=== PATIENT | male | born 1975 | race African-American/Black ===

== ENCOUNTER 2017-05-04 10:48 | Inpatient (IN) | payer OTHER ==
[2017-05-04 11:09] VITALS: BMI 34.9
--- NOTE | 2017-05-04 14:27 | HP ---
CIWA Score - CIWA Score Nausea/Vomitin Muscle Tremors: 4-Moderate,w/Arms Extend Anxiety: 4-Mod. Anxious/Guarded Agitation: 4-Moderately Restless Paroxysmal Sweats: 3 Orientation: 0-Oriented Tacttile Disturbances: 0-None Auditory Disturbances: 0-None Visual Disturbances: 0-None Headache: 0-None Present CIWA-Ar Total Score: 18 Admission ROS BHS - HPI Chief Complaint: Withdrawal sx. Allergies/Adverse Reactions: Allergies Allergy/AdvReac Type Severity Reaction Status Date / Time No Known Allergies Allergy Verified 05/04/17 11:41 History of Present Illness: 42 y/o man with a long hx. of alcoholism is admitted for detox. Pt. has been in previous detox, reports sobriety during incarceration only. Exam Limitations: No Limitations - Ebola screening Have you traveled outside of the country in the last 21 days: No (N) Have you had contact with anyone from an Ebola affected area: No Have you been sick,other than usual withdrawal symptoms: No Do you have a fever: No - Review of Systems Constitutional: Diaphoresis EENT: reports: No Symptoms Reported Respiratory: reports: Cough (dry) Cardiac: reports: No Symptoms Reported GI: reports: Nausea, Abdominal cramping : reports: No Symptoms Reported Musculoskeletal: reports: No Symptoms Reported Integumentary: reports: Sweating Neuro: reports: Tremors Endocrine: reports: No Symptoms Reported Hematology: reports: No Symptoms Reported Psychiatric: reports: No Sypmtoms Reported Other Systems: Reviewed and Negative Patient History - Patient Medical History Hx Anemia: No (sickle cell trait) Hx Asthma: No Hx Chronic Obstructive Pulmonary Disease (COPD): Yes Hx Cancer: No Hx Cardiac Disorders: No Hx Congestive Heart Failure: No Hx Hypertension: Yes (norvasc,lisinopril & labetolo) Hx Hypercholesterolemia: No Hx Pacemaker: No HX Cerebrovascular Accident: No Hx Seizures: No Hx Dementia: No Hx Diabetes: No Hx Gastrointestinal Disorders: Yes (GERD) Hx Liver Disease: No Hx Genitourinary Disorders: No Hx Sexually Transmitted Disorders: Yes (GC) Hx Renal Disease (ESRD): No Hx Thyroid Disease: No Hx Human Immunodeficiency Virus (HIV): No Hx Hepatitis C: No Hx Depression: Yes Hx Suicide Attempt: No Hx Bipolar Disorder: No Hx Schizophrenia: No - Patient Surgical History Past Surgical History: No Hx Neurologic Surgery: No Hx Cataract Extraction: No Hx Cardiac Surgery: No Hx Lung Surgery: No Hx Breast Surgery: No Hx Breast Biopsy: No Hx Abdominal Surgery: No Hx Appendectomy: No Hx Cholecystectomy: No Hx Genitourinary Surgery: No Hx Section: No Hx Orthopedic Surgery: No Anesthesia Reaction: No - PPD History Previous Implant?: Yes Documented Results: Negative w/o proof PPD to be Administered?: Yes - Smoking Cessation Smoking history: Current every day smoker Have you smoked in the past 12 months: Yes Aproximately how many cigarettes per day: 20 Hx Chewing Tobacco Use: No Initiated information on smoking cessation: Yes 'Breaking Loose' booklet given: 05/04/17 - Substance & Tx. History Hx Alcohol Use: Yes Hx Substance Use: No Substance Use Type: Alcohol Hx Substance Use Treatment: Yes (DETOX at [facility] 4months ago) - Substances Abused Alcohol Route: Oral Frequency: Daily Amount used: beer- 8 (40oz) or 4(6packs) Age of first use: 12 Date of Last Use: 05/03/17 Family Disease History - Family Disease History Family Disease History: Diabetes: Grandparent (Stomach), Heart Disease: Mother ( HTN,Lung), CA: Grandparent, Father (Prostate,Alcoholic), Mother, Other: Father Admission Physical Exam [facility] - Vital Signs Vital Signs: Vital Signs - 24 hr 05/04/17 11:07 Temperature 96.4 F L Pulse Rate 112 H Respiratory 20 Rate Blood Pressure 163/102 - Physical General Appearance: Yes: Tremorous, Sweating, Anxious HEENTM: Yes: Within Normal Limits Respiratory: Yes: Chest Non-Tender, Lungs Clear, Normal Breath Sounds Neck: Yes: Supple Breast: Yes: Breast Exam Deferred Cardiology: Yes: Regular Rhythm, Regular Rate, S1, S2 Abdominal: Yes: Normal Bowel Sounds, Non Tender, Flat Genitourinary: Yes: Within Normal Limits Back: Yes: Within Normal Limits Musculoskeletal: Yes: Within Normal Limits Extremities: Yes: Tremors Neurological: Yes: Fully Oriented, Alert Integumentary: Yes: Within Normal Limits Lymphatic: Yes: Within Normal Limits - Diagnostic (1) Alcohol dependence with uncomplicated withdrawal Current Visit: Yes Status: Acute (2) HTN (hypertension) Current Visit: Yes Status: Acute Qualifiers: Hypertension type: essential hypertension Qualified Code(s): I10 - Essential (primary) hypertension Cleared for Admission [facility] - Detox or Rehab [facility] Level of Care: Medically Managed Detox Regimen/Protocol: Librium [facility] Breath Alcohol Content Breath Alcohol Content: 0.029 Urine Drug Screen - Results Drug Screen Negative: No Urine Drug Screen Results: BZO-Benzodiazepines
[2017-05-04] MEDS ORDERED: chlordiazePOXIDE HCL 25 MG CAPSULE PO PRN (14:40)
[2017-05-04] MEDS ORDERED: hydrOXYzine PAMOATE 50 MG CAPSULE (FP) PO PRN (14:40)
[2017-05-04] MEDS ORDERED: guaiFENesin/D-METHORPHAN HB 10 ML UNIT-DOSE CUPS PO PRN (14:40)
[2017-05-04] MEDS ORDERED: chlordiazePOXIDE HCL 25 MG CAPSULE PO ONE (14:40)
[2017-05-04] MEDS ORDERED: LOPERAMIDE HCL 2 MG CAPSULE PO PRN (14:40)
[2017-05-04] MEDS ORDERED: IBUPROFEN 400 MG TABLET (FP) PO PRN (14:40)
[2017-05-04] MEDS ORDERED: ACETAMINOPHEN 325 MG TABLET (FP) PO PRN (14:40)
[2017-05-04] MEDS ORDERED: MAGNESIUM CITRATE 300 ML BOTTLE PO PRN (14:40)
[2017-05-04] MEDS ORDERED: P-EPHED 60MG/TRIPROLIDI 2.5MG TABLET PO PRN (14:40)
[2017-05-04] MEDS ORDERED: MAG HYDROX/AL HYDROX/SIMETH 30 ML UNIT-DOSE CUP PO PRN (14:40)
[2017-05-04] MEDS ORDERED: MENTHOL/PHENOL 1 EACH UD MM PRN (14:40)
[2017-05-04] MEDS ORDERED: NICOTINE POLACRILEX 2 MG GUM BUC PRN (14:40)
[2017-05-04] MEDS ORDERED: MAGNESIUM HYDROX 2400MG/30ML ORAL SUSPENSION 30 ML CUP PO PRN (14:40)
[2017-05-04] MEDS ORDERED: LISINOPRIL 10 MG TABLET (FP) PO ONE (14:44)
[2017-05-04] MEDS ORDERED: BACITRACIN 15 GM TUBE TOPICAL OINTMENT TP SCH (15:30)
[2017-05-04] MEDS: PANTOPRAZOLE 40 MG TABLET (FP) PO SCH (15:36)
[2017-05-04] MEDS: amLODIPine BESYLATE 5 MG TABLET (FP) PO SCH (15:36)
[2017-05-04] MEDS: NICOTINE 21 MG/24 HOURS TOPICAL PATCH TD SCH (15:36)
[2017-05-04] MEDS: chlordiazePOXIDE HCL 25 MG CAPSULE PO SCH ×2 (17:19→22:29)
[2017-05-04] MEDS ORDERED: BACITRACIN 0.9 GM PACKET TP SCH (22:00)
[2017-05-04] MEDS ORDERED: THIAMINE HCL 100 MG TABLET (FP) PO SCH (22:00)
[2017-05-04] MEDS: LISINOPRIL 10 MG TABLET (FP) PO SCH (22:28)
[2017-05-04] MEDS: BACITRACIN 0.9 GM PACKET TP SCH (23:35)
[2017-05-05] MEDS: chlordiazePOXIDE HCL 25 MG CAPSULE PO SCH ×2 (05:20→10:31)
[2017-05-05] MEDS ORDERED: PRENATAL VITAMINS W/ FOLIC ACID TABLET (FP) PO SCH (10:00)
[2017-05-05 10:04] LABS: MCHC 32.2 g/dl (32.0-35.9); MEAN CELL VOLUME 77.5 fl (80-96); MEAN PLT VOLUME 8.7 fl (7.5-11.1); PLATELET COUNT 240 K/MM3 (134-434); RDW 19.3 % (11.9-15.9); WHITE BLOOD COUNT 5.5 K/mm3 (4.0-10.0)
--- NOTE | 2017-05-05 10:14 | CONSULT ---
[facility] Psychiatric Consult - Data Date of interview: 05/05/17 Admission source: [facility] Identifying data: First admission to [facility] for this 42 y/o AA male seeking detoix treatment on for alcohol dependence.Patient is single without children,homeless,unemployed and supported on welfare. Substance Abuse History: Discussed with patient in this session.Mr Valente admits to active use of alcohol as detailed in this [facility] report.See details : Smoking history: Current every day smoker. Have you smoked in the past 12 months: Yes. Aproximately how many cigarettes per day: 20. Hx Chewing Tobacco Use: No. Initiated information on smoking cessation: Yes. 'Breaking Loose' booklet given: 05/04/17. - Substance & Tx. History. Hx Alcohol Use: Yes. Hx Substance Use: No. Substance Use Type: Alcohol. Hx Substance Use Treatment: Yes (DETOX at [facility] 4months ago). - Substances Abused. Alcohol. Route: Oral. Frequency: Daily. Amount used: beer- 8 (40oz) or 4(6packs). Age of first use: 12. Date of Last Use: 05/03/17 Medical History: Remarkable for self-report of migraine headaches,sickle cell trait,GERD,hypertension,arthritis (left knee) and past treatment for gonorrhea. Psychiatric History: Patient admits to remote history of one psychiatric hospitalization (17 years ago) at [facility].Diagnosed with MDD and Anxiety Disorder (self-report).Mr Valente states that he used to be on trazodone 100 mg/hs + seroquel 300 mg/hs.Non-adherent to medications for " more than four months." No OPD care.Patient indicates that he does not have a psychiatrist and that he utilizes emergency room settings for medications refills.No reported history of suicide attempts. Physical/Sexual Abuse/Trauma History: Patient denies history of abuse.Remains evasive about the circumstances that led to his admission to [facility]. Additional Comment: Urine Drug Screen Results: BZO-Benzodiazepines.Noted. Mental Status Exam - Mental Status Exam Alert and Oriented to: Time, Place, Person Cognitive Function: Good Patient Appearance: Well Groomed (obese ; cheloid scars on left side of neck + cheek) Mood: Hopeful, Euthymic Affect: Appropriate, Normal Range Patient Behavior: Fatigued, Cooperative Speech Pattern: Clear Voice Loudness: Normal Thought Process: Goal Oriented Thought Disorder: Not Present Hallucinations: Denies Suicidal Ideation: Denies Homicidal Ideation: Denies Insight/Judgement: Poor Sleep: Poorly, Difficulty falling asleep Appetite: Good Muscle strength/Tone: Normal Gait/Station: Normal Psychiatric Findings - Problem List ([place] 1, 2,3) (1) Alcohol dependence with uncomplicated withdrawal Current Visit: Yes Status: Acute (2) Nicotine dependence Current Visit: Yes Status: Acute (3) Substance induced mood disorder Current Visit: Yes Status: Acute (4) Insomnia Current Visit: Yes Status: Acute - Initial Treatment Plan Initial Treatment Plan: Psychoeducation.Detoxification in progress.Sleep hygiene discussed with patient.Medications : seroquel 100 mg po hs + trazodone 50 mg po hs.Side effects/benefits of both drugs are discussed with the patient.He is in agreement with this careplan.Also informed,in particular,of potential for priapism (trazodone).Observation.Review of recent pharmacy claims : no evidence of scripts for trazodone or seroquel.
[2017-05-05 10:24] LABS: ALBUMIN 3.1 g/dl (3.4-5.0); ANION GAP 5 (8-16); CALCIUM 8.4 mg/dL (8.5-10.1); CO2 30 mmol/L (21-32); GLUCOSE,RANDOM 122 mg/dL (74-106)
[2017-05-05 10:29] LABS: ALK PHOS 52 U/L (45-117); BILIRUBIN,TOTAL 0.4 mg/dL (0.2-1.0); CREATININE 0.9 mg/dL (0.7-1.3); SGOT/AST 15 U/L (15-37); SGPT/ALT 27 U/L (12-78); TOT PROT 6.4 g/dl (6.4-8.2)
[2017-05-05] MEDS: PANTOPRAZOLE 40 MG TABLET (FP) PO SCH (10:30)
[2017-05-05] MEDS: BACITRACIN 0.9 GM PACKET TP SCH (10:30)
[2017-05-05] MEDS: amLODIPine BESYLATE 5 MG TABLET (FP) PO SCH (10:30)
[2017-05-05] MEDS: NICOTINE 21 MG/24 HOURS TOPICAL PATCH TD SCH (10:31)
[2017-05-05] MEDS: LISINOPRIL 10 MG TABLET (FP) PO SCH (11:09)
--- NOTE | 2017-05-05 13:33 | EKG ---
Test Reason : Blood Pressure : / mmHG Vent. Rate : 090 BPM Atrial Rate : 090 BPM P-R Int : 164 ms QRS Dur : 092 ms QT Int : 364 ms P-R-T Axes : 066 -10 052 degrees QTc Int : 445 ms NORMAL SINUS RHYTHM NONSPECIFIC T WAVE ABNORMALITY ABNORMAL ECG NO PREVIOUS ECGS AVAILABLE Confirmed by SOPHIE HAYNES MD ([id number]) on 05/05/2017 1:32:40 PM Referred By: Confirmed By:SOPHIE HAYNES MD
[2017-05-05 13:44] VITALS: BP 149/87; PULSE 97; TEMP 96.9
--- NOTE | 2017-05-05 13:51 | DS ---
[facility] Detox Discharge Summary Admission Date: 05/04/17 Discharge Date: 05/05/17 - History Present History: Alcohol Dependence Additional Comments: PATIENT DOES NOT WISH TO STAY TO COMPLETE DETOX REGIMEN. RISKS OF LEAVING DETOX UNIT PRIOR TO COMPLETION OF DETOX REGIMEN EXPLAINED TO PATIENT. PATIENT ADVISED TO GO IMMEDIATELY TO NEAREST ER SHOULD ANY INTOLERABLE DETOX SYMPTOMS DEVELOP AT ANY TIME. PATIENT LEFT DETOX UNIT IN STABLE MEDICAL CONDITION. Pertinent Past History: Depression, History of Sickle Cell Trait, Insomnia, HTN. - Physical Exam Results Vital Signs: Vital Signs Temperature 96.9 F L 05/05/17 13:43 Pulse Rate 97 H 05/05/17 13:43 Respiratory Rate 0 L 05/05/17 13:43 Blood Pressure 149/87 05/05/17 13:43 O2 Sat by Pulse Oximetry (%) Pertinent Admission Physical Exam Findings: WITHDRAWAL SYMPTOMS. Laboratory Tests 05/05/17 05/05/17 05/05/17 07:00 07:00 07:00 WBC 5.5 RBC 4.86 Hgb 12.2 Hct 37.7 MCV 77.5 L MCH 25.0 L MCHC 32.2 RDW 19.3 H Plt Count 240 MPV 8.7 Sodium 140 Potassium 3.4 L Chloride 105 Carbon Dioxide 30 Anion Gap 5 L BUN 7 Creatinine 0.9 Creat Clearance w eGFR > 60 Random Glucose 122 H Calcium 8.4 L Total Bilirubin 0.4 AST 15 ALT 27 Alkaline Phosphatase 52 Total Protein 6.4 Albumin 3.1 L RPR Titer Nonreactive LABS NOTED. - Treatment Hospital Course: Detoxed Safely - Medication Discharge Medications: Ambulatory Orders Amlodipine Besylate [Norvasc -] 5 mg PO DAILY 05/04/17 Omeprazole 40 mg PO DAILY 05/04/17 Quetiapine Fumarate [Seroquel -] 300 mg PO HS 05/04/17 Trazodone HCl [Desyrel -] 100 mg PO HS 05/04/17 - AMA Did Patient Leave Against Medical Advice: Yes (PT HAD PERSONAL ISSUE AND DOES NOT WISH TO STAY TO COMPELTE DETOX REGIMEN.)
[2017-05-05] MEDS ORDERED: chlordiazePOXIDE HCL 25 MG CAPSULE PO SCH (17:00)
[2017-05-06] MEDS ORDERED: chlordiazePOXIDE 5 MG CAPSULE PO SCH (17:00)
[2017-05-07] MEDS ORDERED: chlordiazePOXIDE HCL 10 MG CAPSULE PO SCH (17:00)
== END 2017-05-05 01:59 | disposition left against medical advice (07) | DRG 770 ==
LOC: YASAS 10:48 → Y3N 12:36
PROVIDERS: ADMIT Internal Medicine; ATTEND Internal Medicine
PROC: HZ2ZZZZ Detoxification Services for Substance Abuse Treatment (ICD-10-PCS; principal; 2017-05-04)
DX: F10.230 Alcohol dependence with withdrawal, uncomplicated (principal); F17.210 Nicotine dependence, cigarettes, uncomplicated; F19.24 Other psychoactive substance dependence with psychoactive substance-induced mood disorder; G47.00 Insomnia, unspecified; I10 Essential (primary) hypertension
CPT/HCPCS: 36415; 80053; 85027; 86593; 93005; 93010

== ENCOUNTER 2017-05-21 16:19 | Inpatient (IN) | payer OTHER ==
[~2017-05-21 16:19] MED LIST: amLODIPine BESYLATE 5 MG TABLET (FP) PO SCH
[2017-05-21 17:13] VITALS: BMI 354.3
--- NOTE | 2017-05-21 18:58 | HP ---
Admission ROS S - HPI Chief Complaint: I WANT TO GO TO REHAB Allergies/Adverse Reactions: Allergies Allergy/AdvReac Type Severity Reaction Status Date / Time No Known Allergies Allergy Verified 05/04/17 11:41 History of Present Illness: 42 YEARS OLD MALE WITH LONG HISTORY OF ALCOHOL NICOTINE DEPENDENCE HAS HYPERTENSION GERD DRY SKIN AND DEPRESSION IS ADMITTED TO REHAB Exam Limitations: No Limitations - Ebola screening Have you traveled outside of the country in the last 21 days: No Have you had contact with anyone from an Ebola affected area: No Have you been sick,other than usual withdrawal symptoms: No Do you have a fever: No - Review of Systems Constitutional: Weight Stable EENT: reports: Blurred Vision (EYE GLASSES) Respiratory: reports: SOB with Exertion Cardiac: reports: No Symptoms Reported GI: reports: No Symptoms Reported : reports: No Symptoms Reported Musculoskeletal: reports: Back Pain, Joint Pain (KNEES) Integumentary: reports: No Symptoms Reported Neuro: reports: No Symptoms reported (LAST EPISODE 05/08/17 NO TREATMENT), Seizure Endocrine: reports: No Symptoms Reported Hematology: reports: No Symptoms Reported Psychiatric: reports: Judgement Intact, Orientated x3, Anxious, Depressed Other Systems: Reviewed and Negative Patient History - Patient Medical History Hx Anemia: No (sickle cell trait) Hx Asthma: No Hx Chronic Obstructive Pulmonary Disease (COPD): Yes Hx Cancer: No Hx Cardiac Disorders: No Hx Congestive Heart Failure: No Hx Hypertension: Yes (norvasc,lisinopril & labetolo) Hx Hypercholesterolemia: No Hx Pacemaker: No HX Cerebrovascular Accident: No Hx Seizures: No Hx Dementia: No Hx Diabetes: No Hx Gastrointestinal Disorders: Yes (GERD) Hx Liver Disease: No Hx Genitourinary Disorders: No Hx Sexually Transmitted Disorders: Yes (GC) Hx Renal Disease (ESRD): No Hx Thyroid Disease: No Hx Human Immunodeficiency Virus (HIV): No Hx Hepatitis C: No Hx Depression: Yes Hx Suicide Attempt: No Hx Bipolar Disorder: No Hx Schizophrenia: No - Patient Surgical History Past Surgical History: No Hx Neurologic Surgery: No Hx Cataract Extraction: No Hx Cardiac Surgery: No Hx Lung Surgery: No Hx Breast Surgery: No Hx Breast Biopsy: No Hx Abdominal Surgery: No Hx Appendectomy: No Hx Cholecystectomy: No Hx Genitourinary Surgery: No Hx Orthopedic Surgery: No - PPD History Previous Implant?: Yes Documented Results: Negative w/o proof Implanted On Prior R Admission?: No PPD to be Administered?: Yes - Smoking Cessation Smoking history: Current every day smoker Have you smoked in the past 12 months: Yes Aproximately how many cigarettes per day: 20 Cigars Per Day: 0 Hx Chewing Tobacco Use: No Initiated information on smoking cessation: Yes 'Breaking Loose' booklet given: 05/21/17 - Substance & Tx. History Hx Alcohol Use: Yes Hx Substance Use: No Substance Use Type: Alcohol Hx Substance Use Treatment: Yes (05/2017 [facility] - Substances Abused Alcohol Route: Oral Frequency: Daily Amount used: [id number] BEER Age of first use: 11 Date of Last Use: 05/20/17 Family Disease History - Family Disease History Family Disease History: Diabetes: Grandparent (Stomach), Heart Disease: Mother ( HTN,Lung/), CA: Grandparent, Father (Prostate,Alcoholic/), Mother, Other: Father, Mother, Sister () Admission Physical Exam S - Vital Signs Vital Signs: Vital Signs - 24 hr 05/21/17 17:10 Temperature 97.7 F Pulse Rate 100 H Respiratory 18 Rate Blood Pressure 150/90 - Physical General Appearance: Yes: No Apparent Distress, Appropriately Dressed, Obese HEENTM: Yes: Hearing grossly Normal, Normal ENT Inspection, Normocephalic, Normal Voice Respiratory: Yes: Chest Non-Tender, No Respiratory Distress, No Accessory Muscle Use, Hyperresonant Neck: Yes: Supple, Trachea in good position Breast: Yes: Breasts Symetrical Cardiology: Yes: Regular Rhythm, S1, S2, Tachycardia Abdominal: Yes: Normal Bowel Sounds, Non Tender, Soft Genitourinary: Yes: Within Normal Limits Back: Yes: Normal Inspection Musculoskeletal: Yes: full range of Motion, Gait Steady Extremities: Yes: Normal Inspection, Normal Range of Motion, Non-Tender Neurological: Yes: Fully Oriented, Alert, Motor Strength 5/5, Normal Response, Depressed Affect Integumentary: Yes: Warm Lymphatic: Yes: Within Normal Limits - Diagnostic (1) GERD (gastroesophageal reflux disease) Current Visit: Yes Status: Chronic Qualifiers: Esophagitis presence: without esophagitis Qualified Code(s): K21.9 - Gastro -esophageal reflux disease without esophagitis (2) Dry skin dermatitis Current Visit: Yes Status: Chronic (3) Depression (emotion) Current Visit: Yes Status: Suspected Qualifiers: Depression Type: dysthymia Qualified Code(s): F34.1 - Dysthymic disorder (4) COPD (chronic obstructive pulmonary disease) Current Visit: Yes Status: Chronic Qualifiers: COPD type: emphysema (5) Alcohol dependence with uncomplicated withdrawal Current Visit: Yes Status: Acute (6) HTN (hypertension) Current Visit: Yes Status: Chronic Qualifiers: Hypertension type: essential hypertension Qualified Code(s): I10 - Essential (primary) hypertension (7) Nicotine dependence Current Visit: Yes Status: Acute Qualifiers: Nicotine product type: cigarettes Substance use status: in withdrawal Qualified Code(s): F17.213 - Nicotine dependence, cigarettes, with withdrawal Cleared for Admission S - Detox or Rehab [facility] Level of Care: Observation Bed Detox Regimen/Protocol: Not Applicable Claeared for Rehab Admission: Yes [facility] Breath Alcohol Content Breath Alcohol Content: 0.033 Urine Drug Screen - Results Drug Screen Negative: No Urine Drug Screen Results: BZO-Benzodiazepines Inpatient Rehab Admission - Initial Determination Are CD services needed?: Yes Free of communicable disease: Yes Not in need of hospitalization: Yes - Rehab Admission Criteria Previous failed treatment: Yes Poor recovery environment: Yes Comorbidities: Yes Lacks judgement: No Patient is meeting Inpatient Rehab admission criteria:: Yes
[2017-05-21] MEDS ORDERED: P-EPHED 60MG/TRIPROLIDI 2.5MG TABLET PO PRN (19:02)
[2017-05-21] MEDS ORDERED: LOPERAMIDE HCL 2 MG CAPSULE PO PRN (19:02)
[2017-05-21] MEDS ORDERED: NICOTINE POLACRILEX 4 MG GUM BUC PRN (19:02)
[2017-05-21] MEDS ORDERED: MENTHOL/PHENOL 1 EACH UD MM PRN (19:02)
[2017-05-21] MEDS ORDERED: MAGNESIUM HYDROX 2400MG/30ML ORAL SUSPENSION 30 ML CUP PO PRN (19:02)
[2017-05-21] MEDS ORDERED: MAG HYDROX/AL HYDROX/SIMETH 30 ML UNIT-DOSE CUP PO PRN (19:02)
[2017-05-21] MEDS ORDERED: MAGNESIUM CITRATE 300 ML BOTTLE PO PRN (19:02)
[2017-05-21] MEDS ORDERED: ALBUTEROL SO4 18 GM HFA INHALER IH PRN (19:15)
[2017-05-21] MEDS: THIAMINE HCL 100 MG TABLET (FP) PO SCH (21:59)
[2017-05-21] MEDS: LABETALOL HCL 100 MG TABLET (FP) PO SCH (21:59)
[2017-05-21] MEDS: LISINOPRIL 5 MG TABLET (FP) PO SCH (21:59)
[2017-05-21] MEDS: RANITIDINE HCL 150 MG TABLET (FP) PO SCH (23:02)
[2017-05-21] MEDS: MINERAL OIL/PETROLAT/WATER TOPICAL CREAM 113 GM JAR TP SCH (23:03)
[2017-05-22 01:22] LABS: URINE APPEARANCE CLEAR; URINE BILIRUBIN NEGATIVE (NEGATIVE); URINE BLOOD NEGATIVE (NEGATIVE); URINE COLOR YELLOW; URINE GLUCOSE (UA) NEGATIVE (NEGATIVE); URINE KETONE TRACE (NEGATIVE); URINE LEUK ESTERASE NEGATIVE (NEGATIVE); URINE NITRITE NEGATIVE (NEGATIVE); URINE PROTEIN NEGATIVE (NEGATIVE); URINE UROBILINOGEN NEGATIVE mg/dL (0.2-1.0)
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
[2017-05-22 09:56] LABS: HEMATOCRIT 38.5 % (35.4-49); HEMOGLOBIN 12.1 GM/dL (11.7-16.9); MCH 24.2 pg (25.7-33.7); MCHC 31.4 g/dl (32.0-35.9); MEAN PLT VOLUME 8.7 fl (7.5-11.1); PLATELET COUNT 210 K/MM3 (134-434); RDW 17.9 % (11.9-15.9); WHITE BLOOD COUNT 4.2 K/mm3 (4.0-10.0)
[2017-05-22 10:10] LABS: CHLORIDE 103 mmol/L (98-107); POTASSIUM 3.5 mmol/L (3.5-5.1); SODIUM 139 mmol/L (136-145)
[2017-05-22 10:27] LABS: ALBUMIN 3.6 g/dl (3.4-5.0); ALK PHOS 54 U/L (45-117); ANION GAP 9 (8-16); BILIRUBIN,TOTAL 0.8 mg/dL (0.2-1.0); BLOOD UREA NITROGEN 8 mg/dL (7-18); CALCIUM 8.2 mg/dL (8.5-10.1); CO2 27 mmol/L (21-32); CREATININE 0.9 mg/dL (0.7-1.3); GLUCOSE,RANDOM 77 mg/dL (74-106); SGOT/AST 42 U/L (15-37); SGPT/ALT 48 U/L (12-78)
[2017-05-22] MEDS: amLODIPine BESYLATE 5 MG TABLET (FP) PO SCH (11:03)
[2017-05-22] MEDS: RANITIDINE HCL 150 MG TABLET (FP) PO SCH ×2 (11:03→22:00)
[2017-05-22] MEDS: LABETALOL HCL 100 MG TABLET (FP) PO SCH (11:03)
[2017-05-22] MEDS: NICOTINE 21 MG/24 HOURS TOPICAL PATCH TD SCH (11:04)
[2017-05-22] MEDS: LISINOPRIL 5 MG TABLET (FP) PO SCH (11:04)
[2017-05-22] MEDS: PRENATAL VITAMINS W/ FOLIC ACID TABLET (FP) PO SCH (11:06)
[2017-05-22] MEDS: guaiFENesin/D-METHORPHAN HB 10 ML UNIT-DOSE CUPS PO PRN ×2 (11:06→21:56)
[2017-05-22] MEDS ORDERED: PNEUMOCOCCAL 23 VACCINE 0.5 ML VIAL IM ONE (12:00)
[2017-05-22] MEDS ORDERED: FLU VACCINE QUAD 60 MCG/0.5 ML (MDV 17-18) IM ONE (12:00)
[2017-05-22] MEDS: hydrOXYzine PAMOATE 50 MG CAPSULE (FP) PO PRN (13:08)
--- NOTE | 2017-05-22 16:35 | EKG ---
Test Reason : Blood Pressure : / mmHG Vent. Rate : 088 BPM Atrial Rate : 088 BPM P-R Int : 166 ms QRS Dur : 082 ms QT Int : 370 ms P-R-T Axes : 066 -04 041 degrees QTc Int : 447 ms NORMAL SINUS RHYTHM POSSIBLE LEFT ATRIAL ENLARGEMENT POSSIBLE ANTERIOR INFARCT , AGE UNDETERMINED ABNORMAL ECG WHEN COMPARED WITH ECG OF 04-MAY-2017 16:45, NO SIGNIFICANT CHANGE WAS FOUND Confirmed by VERÓNICA BISWAS, FANTASMA ([id number]) on 05/22/2017 4:35:08 PM Referred By: Confirmed By:FANTASMA SANCHES MD
[2017-05-22] MEDS: THIAMINE HCL 100 MG TABLET (FP) PO SCH (21:27)
[2017-05-22] MEDS: traZODone HCL 100 MG TABLET (FP) PO SCH (21:29)
[2017-05-22] MEDS: MINERAL OIL/PETROLAT/WATER TOPICAL CREAM 113 GM JAR TP SCH (21:29)
[2017-05-22] MEDS: QUEtiapine FUMARATE 100 MG TABLET (FP) PO SCH (21:29)
[2017-05-23] MEDS: amLODIPine BESYLATE 5 MG TABLET (FP) PO SCH (10:02)
[2017-05-23] MEDS: RANITIDINE HCL 150 MG TABLET (FP) PO SCH ×2 (10:02→21:07)
[2017-05-23] MEDS: NICOTINE 21 MG/24 HOURS TOPICAL PATCH TD SCH (10:02)
[2017-05-23] MEDS: PRENATAL VITAMINS W/ FOLIC ACID TABLET (FP) PO SCH (10:02)
[2017-05-23] MEDS: LABETALOL HCL 100 MG TABLET (FP) PO SCH (10:02)
[2017-05-23] MEDS: LISINOPRIL 5 MG TABLET (FP) PO SCH (10:02)
[2017-05-23] MEDS: ACETAMINOPHEN 325 MG TABLET (FP) PO PRN (10:03)
[2017-05-23] MEDS: guaiFENesin/D-METHORPHAN HB 10 ML UNIT-DOSE CUPS PO PRN (10:04)
[2017-05-23] MEDS: traZODone HCL 100 MG TABLET (FP) PO SCH (21:07)
[2017-05-23] MEDS: THIAMINE HCL 100 MG TABLET (FP) PO SCH (21:07)
[2017-05-23] MEDS: QUEtiapine FUMARATE 100 MG TABLET (FP) PO SCH (21:07)
[2017-05-23] MEDS: MINERAL OIL/PETROLAT/WATER TOPICAL CREAM 113 GM JAR TP SCH (21:59)
[2017-05-24] MEDS: guaiFENesin/D-METHORPHAN HB 10 ML UNIT-DOSE CUPS PO PRN ×2 (05:55→22:09)
[2017-05-24] MEDS: ACETAMINOPHEN 325 MG TABLET (FP) PO PRN (05:55)
[2017-05-24] MEDS ORDERED: IBUPROFEN 400 MG TABLET (FP) PO PRN (09:06)
[2017-05-24] MEDS: PRENATAL VITAMINS W/ FOLIC ACID TABLET (FP) PO SCH (10:37)
[2017-05-24] MEDS: LISINOPRIL 5 MG TABLET (FP) PO SCH (10:39)
[2017-05-24] MEDS: amLODIPine BESYLATE 5 MG TABLET (FP) PO SCH (10:39)
[2017-05-24] MEDS: RANITIDINE HCL 150 MG TABLET (FP) PO SCH ×2 (10:39→22:10)
[2017-05-24] MEDS: LABETALOL HCL 100 MG TABLET (FP) PO SCH (10:39)
[2017-05-24] MEDS: NICOTINE 21 MG/24 HOURS TOPICAL PATCH TD SCH (10:39)
[2017-05-24] MEDS: QUEtiapine FUMARATE 100 MG TABLET (FP) PO SCH (22:08)
[2017-05-24] MEDS: THIAMINE HCL 100 MG TABLET (FP) PO SCH (22:08)
[2017-05-24] MEDS: traZODone HCL 100 MG TABLET (FP) PO SCH (22:08)
[2017-05-24] MEDS: MINERAL OIL/PETROLAT/WATER TOPICAL CREAM 113 GM JAR TP SCH (22:36)
[2017-05-25] MEDS: amLODIPine BESYLATE 5 MG TABLET (FP) PO SCH (09:58)
[2017-05-25] MEDS: RANITIDINE HCL 150 MG TABLET (FP) PO SCH ×2 (09:58→21:06)
[2017-05-25] MEDS: PRENATAL VITAMINS W/ FOLIC ACID TABLET (FP) PO SCH (09:58)
[2017-05-25] MEDS: NICOTINE 21 MG/24 HOURS TOPICAL PATCH TD SCH (09:58)
[2017-05-25] MEDS: LISINOPRIL 5 MG TABLET (FP) PO SCH (09:58)
[2017-05-25] MEDS: LABETALOL HCL 100 MG TABLET (FP) PO SCH (17:13)
[2017-05-25] MEDS: THIAMINE HCL 100 MG TABLET (FP) PO SCH (21:06)
[2017-05-25] MEDS: hydrOXYzine PAMOATE 50 MG CAPSULE (FP) PO PRN (21:06)
[2017-05-25] MEDS: traZODone HCL 100 MG TABLET (FP) PO SCH (21:06)
[2017-05-25] MEDS: MINERAL OIL/PETROLAT/WATER TOPICAL CREAM 113 GM JAR TP SCH (21:07)
[2017-05-25] MEDS: QUEtiapine FUMARATE 100 MG TABLET (FP) PO SCH (21:08)
[2017-05-25] MEDS: guaiFENesin/D-METHORPHAN HB 10 ML UNIT-DOSE CUPS PO PRN (21:08)
[2017-05-26] MEDS: hydrOXYzine PAMOATE 50 MG CAPSULE (FP) PO PRN (02:11)
[2017-05-26 07:42] VITALS: TEMP 98.2
[2017-05-26] MEDS: LISINOPRIL 5 MG TABLET (FP) PO SCH (09:45)
[2017-05-26] MEDS: amLODIPine BESYLATE 5 MG TABLET (FP) PO SCH (09:45)
[2017-05-26] MEDS: RANITIDINE HCL 150 MG TABLET (FP) PO SCH (09:45)
[2017-05-26] MEDS: PRENATAL VITAMINS W/ FOLIC ACID TABLET (FP) PO SCH (09:45)
[2017-05-26] MEDS: LABETALOL HCL 100 MG TABLET (FP) PO SCH (09:45)
[2017-05-26] MEDS: NICOTINE 21 MG/24 HOURS TOPICAL PATCH TD SCH (09:46)
[2017-05-26] MEDS: guaiFENesin/D-METHORPHAN HB 10 ML UNIT-DOSE CUPS PO PRN (09:48)
[2017-05-26 10:41] VITALS: BP 142/82; PULSE 88
== END 2017-05-26 10:50 | disposition left against medical advice (07) | DRG 770 ==
LOC: YASAS 16:19 → Y3W 19:01
PROVIDERS: ADMIT Psychiatry & Neurology Psychiatry; ATTEND Psychiatry & Neurology Psychiatry
PROC: HZ42ZZZ Group Counseling for Substance Abuse Treatment, Cognitive-Behavioral (ICD-10-PCS; principal; 2017-05-21)
DX: F10.24 Alcohol dependence with alcohol-induced mood disorder (principal); F10.282 Alcohol dependence with alcohol-induced sleep disorder; F17.213 Nicotine dependence, cigarettes, with withdrawal; F33.2 Major depressive disorder, recurrent severe without psychotic features; F34.1 Dysthymic disorder; J43.9 Emphysema, unspecified; L85.3 Xerosis cutis; K21.9 Gastro-esophageal reflux disease without esophagitis; I10 Essential (primary) hypertension; D57.3 Sickle-cell trait; Z87.438 Personal history of other diseases of male genital organs; E66.9 Obesity, unspecified; Z68.35 Body mass index [BMI] 35.0-35.9, adult
CPT/HCPCS: 36415; 80053; 81003; 85027; 86593; 86803; 87389; 90688; 90732; 93005; 93010; G0008; G0009

== ENCOUNTER 2017-06-07 16:47 | Inpatient (IN) | payer OTHER ==
[2017-06-07 17:52] VITALS: BMI 34.5
--- NOTE | 2017-06-07 18:00 | HP ---
CIWA Score - CIWA Score Nausea/Vomitin Muscle Tremors: 2 Anxiety: 3 Agitation: 2 Paroxysmal Sweats: 3 Orientation: 0-Oriented Tacttile Disturbances: 1-Very Mild Itch/Numbness Auditory Disturbances: 0-None Visual Disturbances: 1-Very Mild Sensitivity Headache: 2-Mild CIWA-Ar Total Score: 17 Admission ROS BHS - HPI Chief Complaint: "I need to save my life, I need help, I'm drinking myself to and I need help". Allergies/Adverse Reactions: Allergies Allergy/AdvReac Type Severity Reaction Status Date / Time No Known Allergies Allergy Verified 05/21/17 19:56 History of Present Illness: Patient was recently at [facility] for detox on 05/04/17 and 05/21/17 for rehab. He signed out AMA in both admissions because of a family emergency. He presents today for detox from alcohol. His urine drug screen was positive for Bzo but he reports he was at [facility] 3-4 days ago where he was given librium. He denies use of any drugs except alcohol intake. Exam Limitations: No Limitations - Ebola screening Have you traveled outside of the country in the last 21 days: No (N) Have you had contact with anyone from an Ebola affected area: No Have you been sick,other than usual withdrawal symptoms: No Do you have a fever: No - Review of Systems Constitutional: Loss of Appetite, Unexplained wgt Loss EENT: reports: No Symptoms Reported Respiratory: reports: Cough Cardiac: reports: No Symptoms Reported GI: reports: Diarrhea, Nausea, Poor Appetite, Vomiting : reports: No Symptoms Reported Musculoskeletal: reports: Back Pain Integumentary: reports: No Symptoms Reported Neuro: reports: Headache, Tremors Endocrine: reports: No Symptoms Reported Hematology: reports: No Symptoms Reported Psychiatric: reports: Orientated x3, Anxious, Depressed Other Systems: Reviewed and Negative Patient History - Patient Medical History Hx Anemia: No Hx Asthma: No Hx Chronic Obstructive Pulmonary Disease (COPD): Yes (On MDI PRN) Hx Cancer: No Hx Cardiac Disorders: No Hx Congestive Heart Failure: No Hx Hypertension: Yes (On medication) Hx Hypercholesterolemia: No Hx Pacemaker: No HX Cerebrovascular Accident: No Hx Seizures: Yes (1 month ago) Hx Dementia: No Hx Diabetes: No Hx Gastrointestinal Disorders: Yes (GERD, on medication) Hx Liver Disease: No Hx Genitourinary Disorders: No Hx Sexually Transmitted Disorders: Yes (remote h/o gonorrhea) Hx Renal Disease (ESRD): No Hx Thyroid Disease: No Hx Human Immunodeficiency Virus (HIV): No Hx Hepatitis C: No Hx Depression: Yes Hx Suicide Attempt: No Hx Bipolar Disorder: No Hx Schizophrenia: No - Patient Surgical History Past Surgical History: No - PPD History Date: 05/24/17 - Smoking Cessation Smoking history: Current every day smoker Have you smoked in the past 12 months: Yes Aproximately how many cigarettes per day: 20 Cigars Per Day: 0 Hx Chewing Tobacco Use: No Initiated information on smoking cessation: Yes 'Breaking Loose' booklet given: 06/07/17 - Substance & Tx. History Hx Alcohol Use: Yes (beer) Hx Substance Use: No Substance Use Type: Alcohol Hx Substance Use Treatment: No - Substances Abused Alcohol Route: Oral Frequency: Daily Amount used: 6 40oz cans /day Age of first use: 9 Date of Last Use: 06/07/17 Family Disease History - Family Disease History Family Disease History: Diabetes: Grandparent (Stomach), Heart Disease: Mother ( HTN,Lung/), CA: Grandparent, Father (Prostate,Alcoholic/), Mother, Other: Father, Mother, Sister () Admission Physical Exam [facility] - Physical General Appearance: Yes: No Apparent Distress, Alcohol on Breath HEENTM: Yes: Hearing grossly Normal, Normocephalic, Normal Voice, Pharynx Normal Respiratory: Yes: Chest Non-Tender, Lungs Clear, Normal Breath Sounds, No Respiratory Distress, No Accessory Muscle Use Neck: Yes: No masses,lesions,Nodules, Supple Breast: Yes: Breast Exam Deferred Cardiology: Yes: Regular Rhythm, Regular Rate, S1, S2 Abdominal: Yes: Normal Bowel Sounds, Non Tender, Soft Genitourinary: Yes: Within Normal Limits Back: Yes: Normal Inspection Musculoskeletal: Yes: full range of Motion, Gait Steady, Pelvis Stable Extremities: Yes: Non-Tender, Tremors Neurological: Yes: Fully Oriented, Alert, Normal Mood/Affect, Normal Response Integumentary: Yes: Normal Color, Warm Lymphatic: Yes: Within Normal Limits - Diagnostic (1) Alcohol dependence with uncomplicated withdrawal Current Visit: Yes Status: Acute (2) Insomnia Current Visit: Yes Status: Acute Qualifiers: Insomnia type: alcohol-induced Qualified Code(s): F10.982 - Alcohol use, unspecified with alcohol-induced sleep disorder (3) COPD (chronic obstructive pulmonary disease) Current Visit: No Status: Chronic Qualifiers: COPD type: emphysema (4) GERD (gastroesophageal reflux disease) Current Visit: Yes Status: Chronic Qualifiers: Esophagitis presence: without esophagitis Qualified Code(s): K21.9 - Gastro -esophageal reflux disease without esophagitis (5) HTN (hypertension) Current Visit: Yes Status: Chronic Qualifiers: Hypertension type: essential hypertension Qualified Code(s): I10 - Essential (primary) hypertension (6) MDD (major depressive disorder), recurrent episode, moderate Current Visit: No Status: Chronic (7) Nicotine dependence Current Visit: Yes Status: Chronic Qualifiers: Nicotine product type: cigarettes Substance use status: uncomplicated Qualified Code(s): F17.210 - Nicotine dependence, cigarettes, uncomplicated Cleared for Admission BHS - Detox or Rehab S Level of Care: Medically Managed Detox Regimen/Protocol: Librium BHS Breath Alcohol Content Breath Alcohol Content: 0.033
[2017-06-07] MEDS ORDERED: guaiFENesin/D-METHORPHAN HB 10 ML UNIT-DOSE CUPS PO PRN (18:10)
[2017-06-07] MEDS ORDERED: hydrOXYzine PAMOATE 50 MG CAPSULE (FP) PO PRN (18:10)
[2017-06-07] MEDS ORDERED: P-EPHED 60MG/TRIPROLIDI 2.5MG TABLET PO PRN (18:10)
[2017-06-07] MEDS ORDERED: IBUPROFEN 400 MG TABLET (FP) PO PRN (18:10)
[2017-06-07] MEDS ORDERED: MENTHOL/PHENOL 1 EACH UD MM PRN (18:10)
[2017-06-07] MEDS ORDERED: MAGNESIUM HYDROX 2400MG/30ML ORAL SUSPENSION 30 ML CUP PO PRN (18:10)
[2017-06-07] MEDS ORDERED: MAGNESIUM CITRATE 300 ML BOTTLE PO PRN (18:10)
[2017-06-07] MEDS ORDERED: LOPERAMIDE HCL 2 MG CAPSULE PO PRN (18:10)
[2017-06-07] MEDS ORDERED: ACETAMINOPHEN 325 MG TABLET (FP) PO PRN (18:10)
[2017-06-07] MEDS ORDERED: MAG HYDROX/AL HYDROX/SIMETH 30 ML UNIT-DOSE CUP PO PRN (18:10)
[2017-06-07] MEDS ORDERED: NICOTINE POLACRILEX 2 MG GUM BC PRN (18:10)
[2017-06-07] MEDS ORDERED: chlordiazePOXIDE HCL 25 MG CAPSULE PO PRN (18:14)
[2017-06-07] MEDS ORDERED: chlordiazePOXIDE HCL 25 MG CAPSULE PO ONE (18:14)
[2017-06-07] MEDS ORDERED: ALBUTEROL SO4 18 GM HFA INHALER IH PRN (18:27)
[2017-06-07] MEDS: NICOTINE 21 MG/24 HOURS TOPICAL PATCH TD SCH (21:17)
[2017-06-07 22:09] LABS: URINE APPEARANCE CLEAR; URINE BILIRUBIN NEGATIVE (NEGATIVE); URINE BLOOD 1+ (NEGATIVE); URINE COLOR LTYELLOW; URINE GLUCOSE (UA) NEGATIVE (NEGATIVE); URINE KETONE NEGATIVE (NEGATIVE); URINE LEUK ESTERASE NEGATIVE (NEGATIVE); URINE NITRITE NEGATIVE (NEGATIVE); URINE PROTEIN NEGATIVE (NEGATIVE); URINE UROBILINOGEN NEGATIVE mg/dL (0.2-1.0)
[2017-06-07] MEDS: THIAMINE HCL 100 MG TABLET (FP) PO SCH (22:11)
[2017-06-07] MEDS: chlordiazePOXIDE HCL 25 MG CAPSULE PO SCH (22:11)
[2017-06-07 22:24] LABS: EPI CELLS RARE /HPF (FEW); GRANULAR CASTS 1 /lpf; URINE BACTERIA RARE /hpf (NONE SEEN); URINE MUCUS RARE
[2017-06-08] MEDS: chlordiazePOXIDE HCL 25 MG CAPSULE PO SCH ×4 (05:37→22:09)
[2017-06-08] MEDS: NICOTINE 21 MG/24 HOURS TOPICAL PATCH TD SCH (10:12)
[2017-06-08] MEDS: PRENATAL VITAMINS W/ FOLIC ACID TABLET (FP) PO SCH (10:12)
[2017-06-08] MEDS: amLODIPine BESYLATE 5 MG TABLET (FP) PO SCH (10:13)
[2017-06-08] MEDS: PANTOPRAZOLE 20 MG TABLET (FP) PO SCH (10:13)
[2017-06-08] MEDS: LISINOPRIL 5 MG TABLET (FP) PO SCH (10:13)
[2017-06-08 10:21] LABS: HEMATOCRIT 37.3 % (35.4-49); HEMOGLOBIN 11.9 GM/dL (11.7-16.9); MCH 24.4 pg (25.7-33.7); MCHC 31.8 g/dl (32.0-35.9); MEAN CELL VOLUME 76.7 fl (80-96); MEAN PLT VOLUME 8.7 fl (7.5-11.1); PLATELET COUNT 300 K/MM3 (134-434); RBC 4.87 M/mm3 (4.00-5.60); RDW 17.7 % (11.9-15.9); WHITE BLOOD COUNT 4.9 K/mm3 (4.0-10.0)
[2017-06-08 10:24] LABS: ALBUMIN 3.3 g/dl (3.4-5.0); ANION GAP 8 (8-16); BILIRUBIN,TOTAL 0.5 mg/dL (0.2-1.0); BLOOD UREA NITROGEN 6 mg/dL (7-18); CALCIUM 8.3 mg/dL (8.5-10.1); CHLORIDE 104 mmol/L (98-107); CO2 29 mmol/L (21-32); GLUCOSE,RANDOM 77 mg/dL (74-106); POTASSIUM 3.4 mmol/L (3.5-5.1); SGOT/AST 26 U/L (15-37); SGPT/ALT 26 U/L (12-78); SODIUM 141 mmol/L (136-145); TOT PROT 6.8 g/dl (6.4-8.2)
[2017-06-08 10:25] LABS: ALK PHOS 57 U/L (45-117)
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
[2017-06-08] MEDS ORDERED: ONDANSETRON *ODT* 4 MG TABLET SL ONE (10:40)
--- NOTE | 2017-06-08 11:37 | EKG ---
Test Reason : Blood Pressure : / mmHG Vent. Rate : 090 BPM Atrial Rate : 090 BPM P-R Int : 170 ms QRS Dur : 092 ms QT Int : 364 ms P-R-T Axes : 066 -04 069 degrees QTc Int : 445 ms NORMAL SINUS RHYTHM NORMAL ECG WHEN COMPARED WITH ECG OF 21-MAY-2017 22:09, NO SIGNIFICANT CHANGE WAS FOUND Confirmed by ALBERT YANES MD ([id number]) on 06/08/2017 11:37:27 AM Referred By: Confirmed By:ALBERT YANES MD
--- NOTE | 2017-06-08 11:47 | PN ---
S CIWA - CIWA Score Nausea/Vomitin-Mild Nausea/No Vomiting Muscle Tremors: 4-Moderate,w/Arms Extend Anxiety: 3 Agitation: 4-Moderately Restless Paroxysmal Sweats: 1-Minimal Palms Moist Orientation: 0-Oriented Tacttile Disturbances: 0-None Auditory Disturbances: 0-None Visual Disturbances: 0-None Headache: 0-None Present CIWA-Ar Total Score: 13 BHS Progress Note (SOAP) Subjective: sweating restlessness gi distress tremor nausea Objective: 06/08/17 11:45 Vital Signs Temperature 98.2 F 06/08/17 10:00 Pulse Rate 92 H 06/08/17 10:00 Respiratory Rate 18 06/08/17 10:00 Blood Pressure 146/76 06/08/17 10:00 O2 Sat by Pulse Oximetry (%) Laboratory Last Values WBC 4.9 K/mm3 (4.0-10.0) 06/08/17 07:40 RBC 4.87 M/mm3 (4.00-5.60) 06/08/17 07:40 Hgb 11.9 GM/dL (11.7-16.9) 06/08/17 07:40 Hct 37.3 % (35.4-49) 06/08/17 07:40 MCV 76.7 fl (80-96) L 06/08/17 07:40 MCH 24.4 pg (25.7-33.7) L 06/08/17 07:40 MCHC 31.8 g/dl (32.0-35.9) L 06/08/17 07:40 RDW 17.7 % (11.9-15.9) H 06/08/17 07:40 Plt Count 300 K/MM3 (134-434) D 06/08/17 07:40 MPV 8.7 fl (7.5-11.1) 06/08/17 07:40 Sodium 141 mmol/L (136-145) 06/08/17 07:40 Potassium 3.4 mmol/L (3.5-5.1) L 06/08/17 07:40 Chloride 104 mmol/L (98-107) 06/08/17 07:40 Carbon Dioxide 29 mmol/L (21-32) 06/08/17 07:40 Anion Gap 8 (8-16) 06/08/17 07:40 BUN 6 mg/dL (7-18) L D 06/08/17 07:40 Creatinine 1.0 mg/dL (0.7-1.3) 06/08/17 07:40 Creat Clearance w eGFR > 60 (>60) 06/08/17 07:40 Random Glucose 77 mg/dL (74-106) 06/08/17 07:40 Calcium 8.3 mg/dL (8.5-10.1) L 06/08/17 07:40 Total Bilirubin 0.5 mg/dL (0.2-1.0) D 06/08/17 07:40 AST 26 U/L (15-37) D 06/08/17 07:40 ALT 26 U/L (12-78) D 06/08/17 07:40 Alkaline Phosphatase 57 U/L (45-117) 06/08/17 07:40 Total Protein 6.8 g/dl (6.4-8.2) 06/08/17 07:40 Albumin 3.3 g/dl (3.4-5.0) L 06/08/17 07:40 Urine Color Ltyellow 06/07/17 21:00 Urine Appearance Clear 06/07/17 21:00 Urine pH 5.0 (5.0-8.0) 06/07/17 21:00 Ur Specific [place] 1.008 (1.001-1.035) 06/07/17 21:00 Urine Protein Negative (NEGATIVE) 06/07/17 21:00 Urine Glucose (UA) Negative (NEGATIVE) 06/07/17 21:00 Urine Ketones Negative (NEGATIVE) 06/07/17 21:00 Urine Blood 1+ (NEGATIVE) H 06/07/17 21:00 Urine Nitrite Negative (NEGATIVE) 06/07/17 21:00 Urine Bilirubin Negative (NEGATIVE) 06/07/17 21:00 Urine Urobilinogen Negative mg/dL (0.2-1.0) 06/07/17 21:00 Ur Leukocyte Esterase Negative (NEGATIVE) 06/07/17 21:00 Urine WBC (Auto) 1 /hpf (3-5) 06/07/17 21:00 Urine RBC (Auto) 1 /hpf (0-3) 06/07/17 21:00 Ur Epithelial Cells Rare /HPF (FEW) 01/06/18 21:00 Urine Bacteria Rare /hpf (NONE SEEN) 06/07/17 21:00 Granular Casts 1 /lpf 06/07/17 21:00 Urine Mucus Rare 06/07/17 21:00 lab noted Assessment: 06/08/17 11:45 withdrawal sx Plan: continue detox zofrain 4 mg sl x 1 now
[2017-06-08] MEDS: POTASSIUM CHLORIDE ORAL LIQUID 20 MEQ/15 ML PO SCH ×2 (12:59→22:09)
[2017-06-08] MEDS ORDERED: chlordiazePOXIDE HCL 25 MG CAPSULE PO ONE (13:00)
[2017-06-08] MEDS: traZODone HCL 100 MG TABLET (FP) PO SCH (22:09)
[2017-06-08] MEDS: THIAMINE HCL 100 MG TABLET (FP) PO SCH (22:09)
[2017-06-08] MEDS: QUEtiapine FUMARATE 100 MG TABLET (FP) PO SCH (22:09)
[2017-06-09] MEDS: chlordiazePOXIDE HCL 25 MG CAPSULE PO SCH ×3 (05:57→18:07)
[2017-06-09] MEDS: POTASSIUM CHLORIDE ORAL LIQUID 20 MEQ/15 ML PO SCH ×2 (10:16→22:24)
[2017-06-09] MEDS: LISINOPRIL 5 MG TABLET (FP) PO SCH (10:16)
[2017-06-09] MEDS: PRENATAL VITAMINS W/ FOLIC ACID TABLET (FP) PO SCH (10:16)
[2017-06-09] MEDS: amLODIPine BESYLATE 5 MG TABLET (FP) PO SCH (10:16)
[2017-06-09] MEDS: PANTOPRAZOLE 20 MG TABLET (FP) PO SCH (10:16)
[2017-06-09] MEDS: NICOTINE 21 MG/24 HOURS TOPICAL PATCH TD SCH (10:16)
--- NOTE | 2017-06-09 10:19 | PN ---
[facility] CIWA - CIWA Score Nausea/Vomitin-No Nausea/No Vomiting Muscle Tremors: 4-Moderate,w/Arms Extend Anxiety: 3 Agitation: 2 Paroxysmal Sweats: 2 Orientation: 0-Oriented Tacttile Disturbances: 0-None Auditory Disturbances: 0-None Visual Disturbances: 0-None Headache: 0-None Present CIWA-Ar Total Score: 11 S Progress Note (SOAP) Subjective: agitation anxiety sweats Objective: 06/09/17 10:21 Vital Signs Temperature 98 F 06/09/17 06:07 Pulse Rate 86 06/09/17 06:07 Respiratory Rate 18 06/09/17 06:07 Blood Pressure 107/52 06/09/17 06:07 O2 Sat by Pulse Oximetry (%) Laboratory Tests 06/07/17 06/08/17 06/08/17 21:00 07:40 07:40 WBC 4.9 RBC 4.87 Hgb 11.9 Hct 37.3 MCV 76.7 L MCH 24.4 L MCHC 31.8 L RDW 17.7 H Plt Count 300 D MPV 8.7 Sodium 141 Potassium 3.4 L Chloride 104 Carbon Dioxide 29 Anion Gap 8 BUN 6 L D Creatinine 1.0 Creat Clearance w eGFR > 60 Random Glucose 77 Calcium 8.3 L Total Bilirubin 0.5 D AST 26 D ALT 26 D Alkaline Phosphatase 57 Total Protein 6.8 Albumin 3.3 L Urine Color Ltyellow Urine Appearance Clear Urine pH 5.0 Ur Specific [place] 1.008 Urine Protein Negative Urine Glucose (UA) Negative Urine Ketones Negative Urine Blood 1+ H Urine Nitrite Negative Urine Bilirubin Negative Urine Urobilinogen Negative Ur Leukocyte Esterase Negative Urine WBC (Auto) 1 Urine RBC (Auto) 1 Ur Epithelial Cells Rare Urine Bacteria Rare Granular Casts 1 Urine Mucus Rare RPR Titer 06/08/17 07:40 WBC RBC Hgb Hct MCV MCH MCHC RDW Plt Count MPV Sodium Potassium Chloride Carbon Dioxide Anion Gap BUN Creatinine Creat Clearance w eGFR Random Glucose Calcium Total Bilirubin AST ALT Alkaline Phosphatase Total Protein Albumin Urine Color Urine Appearance Urine pH Ur Specific [place] Urine Protein Urine Glucose (UA) Urine Ketones Urine Blood Urine Nitrite Urine Bilirubin Urine Urobilinogen Ur Leukocyte Esterase Urine WBC (Auto) Urine RBC (Auto) Ur Epithelial Cells Urine Bacteria Granular Casts Urine Mucus RPR Titer Nonreactive aaox3 ambulating no acute distress Assessment: 06/09/17 10:22 withdrawal sx Plan: continue detox increase fluids lidocaine patch motrin 600mg prn d/c in am
[2017-06-09] MEDS: THIAMINE HCL 100 MG TABLET (FP) PO SCH (22:25)
[2017-06-09] MEDS: chlordiazePOXIDE 5 MG CAPSULE PO SCH (22:25)
[2017-06-09] MEDS: traZODone HCL 100 MG TABLET (FP) PO SCH (22:25)
[2017-06-09] MEDS: QUEtiapine FUMARATE 100 MG TABLET (FP) PO SCH (22:25)
[2017-06-10] MEDS: chlordiazePOXIDE 5 MG CAPSULE PO SCH ×3 (05:08→18:11)
[2017-06-10] MEDS ORDERED: LIDOCAINE 5% TOPICAL PATCH TP ONE (09:21)
[2017-06-10] MEDS ORDERED: IBUPROFEN 600 MG TABLET (FP) PO PRN (09:59)
[2017-06-10] MEDS: POTASSIUM CHLORIDE ORAL LIQUID 20 MEQ/15 ML PO SCH ×2 (10:19→22:33)
[2017-06-10] MEDS: PRENATAL VITAMINS W/ FOLIC ACID TABLET (FP) PO SCH (10:20)
[2017-06-10] MEDS: PANTOPRAZOLE 20 MG TABLET (FP) PO SCH (10:20)
[2017-06-10] MEDS: LISINOPRIL 5 MG TABLET (FP) PO SCH (10:20)
[2017-06-10] MEDS: amLODIPine BESYLATE 5 MG TABLET (FP) PO SCH (10:20)
[2017-06-10] MEDS: NICOTINE 21 MG/24 HOURS TOPICAL PATCH TD SCH (10:20)
[2017-06-10] MEDS ORDERED: LIDOCAINE PATCH REMOVAL MC SCH (22:00)
[2017-06-10] MEDS: traZODone HCL 100 MG TABLET (FP) PO SCH (22:33)
[2017-06-10] MEDS: chlordiazePOXIDE HCL 10 MG CAPSULE PO SCH (22:33)
[2017-06-10] MEDS: QUEtiapine FUMARATE 100 MG TABLET (FP) PO SCH (22:33)
[2017-06-10] MEDS: THIAMINE HCL 100 MG TABLET (FP) PO SCH (22:33)
[2017-06-11] MEDS: chlordiazePOXIDE HCL 10 MG CAPSULE PO SCH (05:33)
[2017-06-11 06:26] VITALS: BP 147/77; PULSE 69; TEMP 96.8
--- NOTE | 2017-06-11 08:38 | DS ---
[facility] Detox Discharge Summary Admission Date: 06/07/17 Discharge Date: 06/11/17 - History Present History: Alcohol Dependence - Physical Exam Results Vital Signs: Vital Signs Temperature 96.8 F L 06/11/17 06:26 Pulse Rate 69 06/11/17 06:26 Respiratory Rate 18 06/11/17 06:26 Blood Pressure 147/77 06/11/17 06:26 O2 Sat by Pulse Oximetry (%) - Treatment Hospital Course: Detox Protocol Followed, Detoxed Safely, Responded well, Discharged Condition Good, Rehab Referral Accepted - Medication Discharge Medications: Ambulatory Orders Amlodipine Besylate [Norvasc -] 5 mg PO DAILY 06/07/17 Labetalol HCl [Normodyne -] 200 mg PO DAILY 06/07/17 Lisinopril 10 mg PO DAILY 06/07/17 Quetiapine Fumarate [Seroquel] 100 mg PO HS #30 tablet 06/08/17 Trazodone HCl [Desyrel -] 100 mg PO HS #30 tablet 06/08/17 - Diagnosis (1) Alcohol dependence with uncomplicated withdrawal Current Visit: Yes Status: Chronic (2) Insomnia Current Visit: Yes Status: Acute Qualifiers: Insomnia type: alcohol-induced Qualified Code(s): F10.982 - Alcohol use, unspecified with alcohol-induced sleep disorder (3) GERD (gastroesophageal reflux disease) Current Visit: Yes Status: Chronic Qualifiers: Esophagitis presence: without esophagitis Qualified Code(s): K21.9 - Gastro -esophageal reflux disease without esophagitis (4) HTN (hypertension) Current Visit: Yes Status: Chronic Qualifiers: Hypertension type: essential hypertension Qualified Code(s): I10 - Essential (primary) hypertension (5) Nicotine dependence Current Visit: Yes Status: Chronic Qualifiers: Nicotine product type: cigarettes Substance use status: uncomplicated Qualified Code(s): F17.210 - Nicotine dependence, cigarettes, uncomplicated (6) Alcohol-induced mood disorder Current Visit: No Status: Acute (7) Alcohol-induced sleep disorder Current Visit: No Status: Acute (8) Substance induced mood disorder Current Visit: No Status: Acute (9) COPD (chronic obstructive pulmonary disease) Current Visit: No Status: Chronic Qualifiers: COPD type: emphysema (10) Dry skin dermatitis Current Visit: No Status: Chronic (11) MDD (major depressive disorder), recurrent episode, moderate Current Visit: No Status: Chronic (12) Depression (emotion) Current Visit: No Status: Suspected Qualifiers: Depression Type: dysthymia Qualified Code(s): F34.1 - Dysthymic disorder - AMA Did Patient Leave Against Medical Advice: No
[2017-06-11] MEDS: LISINOPRIL 5 MG TABLET (FP) PO SCH (09:09)
[2017-06-11] MEDS: amLODIPine BESYLATE 5 MG TABLET (FP) PO SCH (09:09)
[2017-06-11] MEDS: PRENATAL VITAMINS W/ FOLIC ACID TABLET (FP) PO SCH (09:09)
[2017-06-11] MEDS: POTASSIUM CHLORIDE ORAL LIQUID 20 MEQ/15 ML PO SCH (09:09)
== END 2017-06-11 09:20 | disposition home or self-care (01) | DRG 775 ==
LOC: YASAS 16:47 → Y6N 18:20
PROVIDERS: ADMIT Internal Medicine; ATTEND Internal Medicine
PROC: HZ2ZZZZ Detoxification Services for Substance Abuse Treatment (ICD-10-PCS; principal; 2017-06-07)
DX: F10.230 Alcohol dependence with withdrawal, uncomplicated (principal); F17.210 Nicotine dependence, cigarettes, uncomplicated; F10.24 Alcohol dependence with alcohol-induced mood disorder; F10.282 Alcohol dependence with alcohol-induced sleep disorder; F19.24 Other psychoactive substance dependence with psychoactive substance-induced mood disorder; F34.1 Dysthymic disorder; F33.1 Major depressive disorder, recurrent, moderate; I10 Essential (primary) hypertension; K21.9 Gastro-esophageal reflux disease without esophagitis; J44.9 Chronic obstructive pulmonary disease, unspecified; J43.9 Emphysema, unspecified; L85.3 Xerosis cutis
CPT/HCPCS: 36415; 80053; 81003; 81015; 85027; 86593; 93005; 93010

== ENCOUNTER 2017-08-26 10:39 | Inpatient (IN) | payer OTHER ==
[2017-08-26 10:56] VITALS: BMI 38.5
--- NOTE | 2017-08-26 12:36 | HP ---
CIWA Score - CIWA Score Nausea/Vomitin-Mild Nausea/No Vomiting Muscle Tremors: 4-Moderate,w/Arms Extend Anxiety: 4-Mod. Anxious/Guarded Agitation: 4-Moderately Restless Paroxysmal Sweats: 1-Minimal Palms Moist Orientation: 1-Uncertain about Date Tacttile Disturbances: 1-Very Mild Itch/Numbness Auditory Disturbances: 0-None Visual Disturbances: 0-None Headache: 1-Very Mild CIWA-Ar Total Score: 17 Admission ROS BHS - HPI Chief Complaint: withdrawal sx Allergies/Adverse Reactions: Allergies Allergy/AdvReac Type Severity Reaction Status Date / Time No Known Allergies Allergy Verified 08/26/17 12:27 History of Present Illness: 42 years old male long history of alcohol nicotine dependence longest sobriety 12 years has hypertension gerd copd bipolar ii is admitted to detox Exam Limitations: No Limitations - Ebola screening Have you traveled outside of the country in the last 21 days: No Have you had contact with anyone from an Ebola affected area: No Have you been sick,other than usual withdrawal symptoms: No Do you have a fever: No - Review of Systems Constitutional: Changes in sleep, Weight Stable EENT: reports: Blurred Vision (eye glasses) Respiratory: reports: SOB with Exertion Cardiac: reports: No Symptoms Reported GI: reports: Nausea, Poor Fluid Intake, Indigestion, Abdominal cramping : reports: No Symptoms Reported Musculoskeletal: reports: No Symptoms Reported Integumentary: reports: No Symptoms Reported Neuro: reports: Seizure (not sure), Tremors Endocrine: reports: No Symptoms Reported Hematology: reports: No Symptoms Reported Psychiatric: reports: Judgement Intact, Anxious, Depressed Other Systems: Reviewed and Negative Patient History - Patient Medical History Hx Anemia: No Hx Asthma: No Hx Chronic Obstructive Pulmonary Disease (COPD): Yes Hx Cancer: No Hx Cardiac Disorders: No Hx Congestive Heart Failure: No Hx Hypertension: Yes Hx Hypercholesterolemia: No Hx Pacemaker: No HX Cerebrovascular Accident: No Hx Seizures: Yes (1 mth ago) Hx Dementia: No Hx Diabetes: No Hx Gastrointestinal Disorders: Yes (GERD) Hx Liver Disease: No Hx Genitourinary Disorders: No Hx Sexually Transmitted Disorders: No Hx Renal Disease (ESRD): No Hx Thyroid Disease: No Hx Human Immunodeficiency Virus (HIV): No Hx Hepatitis C: No Hx Depression: Yes Hx Suicide Attempt: Yes (2017 overdose) Hx Bipolar Disorder: No Hx Schizophrenia: No - Patient Surgical History Past Surgical History: No Hx Neurologic Surgery: No Hx Cataract Extraction: No Hx Cardiac Surgery: No Hx Lung Surgery: No Hx Breast Surgery: No Hx Breast Biopsy: No Hx Abdominal Surgery: No Hx Appendectomy: No Hx Cholecystectomy: No Hx Genitourinary Surgery: No Hx Orthopedic Surgery: No - PPD History Previous Implant?: Yes Documented Results: Negative w/proof Implanted On Prior [facility] Admission?: Yes Date: 05/24/17 PPD to be Administered?: No - Smoking Cessation Smoking history: Current every day smoker Have you smoked in the past 12 months: Yes Aproximately how many cigarettes per day: 20 Cigars Per Day: 0 Hx Chewing Tobacco Use: No Initiated information on smoking cessation: Yes 'Breaking Loose' booklet given: 08/26/17 - Substance & Tx. History Hx Alcohol Use: Yes Hx Substance Use: No Substance Use Type: Alcohol Hx Substance Use Treatment: Yes Family Disease History - Family Disease History Family Disease History: Diabetes: Grandparent (Stomach), Heart Disease: Mother ( HTN,Lung/), CA: Grandparent, Father (Prostate,Alcoholic/), Mother, Brother (), Other: Father, Mother, Brother, Sister () Admission Physical Exam S - Vital Signs Vital Signs: Vital Signs - 24 hr 08/26/17 10:48 Temperature 95.9 F L Pulse Rate 87 Respiratory 18 Rate Blood Pressure 163/110 - Physical General Appearance: Yes: Appropriately Dressed, Mild Distress, Alcohol on Breath , Tremorous, Irritable, Sweating, Anxious HEENTM: Yes: Hearing grossly Normal, Normal ENT Inspection, Normocephalic, Normal Voice Respiratory: Yes: Chest Non-Tender, No Respiratory Distress, No Accessory Muscle Use, Hyperresonant Neck: Yes: Supple, Trachea in good position Breast: Yes: Breasts Symetrical Cardiology: Yes: Regular Rhythm, Regular Rate, S1, S2 Abdominal: Yes: Non Tender, Soft, Increased Bowel Sounds Genitourinary: Yes: Within Normal Limits Back: Yes: Normal Inspection Musculoskeletal: Yes: full range of Motion, Gait Steady Extremities: Yes: Normal Inspection, Normal Range of Motion, Non-Tender, Tremors Neurological: Yes: Alert, Motor Strength 5/5, Normal Response, Depressed Affect Integumentary: Yes: Warm Lymphatic: Yes: Within Normal Limits - Diagnostic (1) Alcohol dependence with uncomplicated withdrawal Current Visit: Yes Status: Acute (2) COPD (chronic obstructive pulmonary disease) Current Visit: No Status: Chronic Qualifiers: COPD type: emphysema (3) Dry skin dermatitis Current Visit: Yes Status: Chronic (4) GERD (gastroesophageal reflux disease) Current Visit: Yes Status: Chronic Qualifiers: Esophagitis presence: without esophagitis Qualified Code(s): K21.9 - Gastro -esophageal reflux disease without esophagitis (5) HTN (hypertension) Current Visit: Yes Status: Chronic Qualifiers: Hypertension type: essential hypertension Qualified Code(s): I10 - Essential (primary) hypertension (6) Nicotine dependence Current Visit: Yes Status: Acute Qualifiers: Nicotine product type: cigarettes Substance use status: in withdrawal Qualified Code(s): F17.213 - Nicotine dependence, cigarettes, with withdrawal (7) Depression (emotion) Current Visit: Yes Status: Suspected Qualifiers: Depression Type: dysthymia Qualified Code(s): F34.1 - Dysthymic disorder Cleared for Admission [facility] - Detox or Rehab [facility] Level of Care: Medically Managed Detox Regimen/Protocol: Librium [facility] Breath Alcohol Content Breath Alcohol Content: 0.123 Urine Drug Screen - Control Is Test Valid: Yes - Results Drug Screen Negative: No Urine Drug Screen Results: BZO-Benzodiazepines
[2017-08-26] MEDS ORDERED: MAGNESIUM CITRATE 300 ML BOTTLE PO PRN (12:52)
[2017-08-26] MEDS ORDERED: NICOTINE POLACRILEX 4 MG GUM BUC PRN (12:52)
[2017-08-26] MEDS ORDERED: ACETAMINOPHEN 325 MG TABLET (FP) PO PRN (12:52)
[2017-08-26] MEDS ORDERED: P-EPHED 60MG/TRIPROLIDI 2.5MG TABLET PO PRN (12:52)
[2017-08-26] MEDS ORDERED: LOPERAMIDE HCL 2 MG CAPSULE PO PRN (12:52)
[2017-08-26] MEDS ORDERED: MENTHOL/PHENOL 1 EACH UD MM PRN (12:52)
[2017-08-26] MEDS ORDERED: MAGNESIUM HYDROX 2400MG/30ML ORAL SUSPENSION 30 ML CUP PO PRN (12:52)
[2017-08-26] MEDS ORDERED: ALBUTEROL SO4 18 GM HFA INHALER IH PRN ×2 (12:53→17:31)
[2017-08-26] MEDS ORDERED: ALBUTEROL SO4 0.083% IH SOL 2.5 MG/3 ML VIAL.NEB. NEB PRN (12:54)
[2017-08-26] MEDS: chlordiazePOXIDE HCL 25 MG CAPSULE PO PRN (14:31)
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
[2017-08-26] MEDS ORDERED: chlordiazePOXIDE HCL 25 MG CAPSULE PO ONE (18:30)
[2017-08-26] MEDS: LISINOPRIL 10 MG TABLET (FP) PO SCH (18:58)
[2017-08-26] MEDS: LABETALOL HCL 200 MG TABLET (FP) PO SCH (18:59)
[2017-08-26] MEDS: amLODIPine BESYLATE 5 MG TABLET (FP) PO SCH (18:59)
[2017-08-26 19:10] LABS: URINE APPEARANCE CLEAR; URINE BILIRUBIN NEGATIVE (<2.0 mg/dL); URINE BLOOD NEGATIVE (NEGATIVE); URINE COLOR LTYELLOW; URINE GLUCOSE (UA) NEGATIVE (NEGATIVE); URINE KETONE NEGATIVE (NEGATIVE); URINE LEUK ESTERASE NEGATIVE (NEGATIVE); URINE NITRITE NEGATIVE (NEGATIVE); URINE PROTEIN NEGATIVE (NEGATIVE); URINE UROBILINOGEN NEGATIVE mg/dL (0.2-1.0)
[2017-08-26] MEDS ORDERED: MELATONIN 5 MG TABLETS PO PRN (22:00)
[2017-08-26] MEDS: THIAMINE HCL 100 MG TABLET (FP) PO SCH (22:27)
[2017-08-26] MEDS: chlordiazePOXIDE HCL 25 MG CAPSULE PO SCH (22:27)
[2017-08-26] MEDS: BUDESONIDE/FORMETEROL FUMARATE 80/4.5 mcg INHALER IH SCH (22:27)
[2017-08-26] MEDS: traZODone HCL 50 MG TABLET (FP) PO SCH (22:28)
[2017-08-26] MEDS: RANITIDINE HCL 150 MG TABLET (FP) PO SCH (22:28)
[2017-08-26] MEDS: QUEtiapine FUMARATE 100 MG TABLET (FP) PO SCH (22:28)
[2017-08-26] MEDS: MINERAL OIL/PETROLAT/WATER TOPICAL CREAM 113 GM JAR TP SCH (22:30)
[2017-08-26] MEDS: guaiFENesin/D-METHORPHAN HB 10 ML UNIT-DOSE CUPS PO PRN (22:30)
[2017-08-27] MEDS: chlordiazePOXIDE HCL 25 MG CAPSULE PO SCH ×4 (05:49→22:42)
[2017-08-27] MEDS ORDERED: ONDANSETRON *ODT* 4 MG TABLET SL ONE (06:37)
--- NOTE | 2017-08-27 06:43 | PN ---
S Progress Note Note: Patient complained of nausea. Denies vomiting at this time. Ondansetron 4mg sublingual ordered
[2017-08-27 10:18] LABS: HEMATOCRIT 39.7 % (35.4-49); HEMOGLOBIN 12.5 GM/dL (11.7-16.9); MCH 23.8 pg (25.7-33.7); MCHC 31.5 g/dl (32.0-35.9); MEAN CELL VOLUME 75.6 fl (80-96); MEAN PLT VOLUME 9.6 fl (7.5-11.1); PLATELET COUNT 241 K/MM3 (134-434); RBC 5.25 M/mm3 (4.00-5.60); RDW 19.8 % (11.9-15.9); WHITE BLOOD COUNT 4.8 K/mm3 (4.0-10.0)
[2017-08-27 10:29] LABS: CHLORIDE 106 mmol/L (98-107); POTASSIUM 3.6 mmol/L (3.5-5.1); SODIUM 140 mmol/L (136-145)
[2017-08-27] MEDS: BUDESONIDE/FORMETEROL FUMARATE 80/4.5 mcg INHALER IH SCH ×2 (10:32→22:42)
[2017-08-27] MEDS: LISINOPRIL 10 MG TABLET (FP) PO SCH (10:33)
[2017-08-27] MEDS: PRENATAL VITAMINS W/ FOLIC ACID TABLET (FP) PO SCH (10:33)
[2017-08-27] MEDS: RANITIDINE HCL 150 MG TABLET (FP) PO SCH ×2 (10:33→22:42)
[2017-08-27] MEDS: NICOTINE 21 MG/24 HOURS TOPICAL PATCH TD SCH (10:33)
[2017-08-27] MEDS: amLODIPine BESYLATE 5 MG TABLET (FP) PO SCH (10:33)
--- NOTE | 2017-08-27 10:55 | EKG ---
Test Reason : Blood Pressure : / mmHG Vent. Rate : 084 BPM Atrial Rate : 084 BPM P-R Int : 164 ms QRS Dur : 086 ms QT Int : 378 ms P-R-T Axes : 068 004 050 degrees QTc Int : 446 ms NORMAL SINUS RHYTHM CANNOT RULE OUT ANTERIOR INFARCT , AGE UNDETERMINED ABNORMAL ECG WHEN COMPARED WITH ECG OF 07-JUN-2017 20:15, NO SIGNIFICANT CHANGE WAS FOUND Confirmed by YURIY BISWAS, MILAGROS ([id number]) on 08/27/2017 10:55:11 AM Referred By: Confirmed By:MILAGROS YAN MD
[2017-08-27 11:00] LABS: ALK PHOS 58 U/L (45-117); ANION GAP 10 (8-16); BILIRUBIN,TOTAL 0.4 mg/dL (0.2-1.0); BLOOD UREA NITROGEN 6 mg/dL (7-18); CALCIUM 8.7 mg/dL (8.5-10.1); CO2 24 mmol/L (21-32); GLUCOSE,RANDOM 103 mg/dL (74-106); SGOT/AST 24 U/L (15-37); SGPT/ALT 27 U/L (12-78); TOT PROT 7.7 g/dl (6.4-8.2)
[2017-08-27] MEDS ORDERED: LABETALOL HCL 100 MG TABLET (FP) ONE (11:01)
[2017-08-27] MEDS: LABETALOL HCL 200 MG TABLET (FP) PO SCH (11:08)
--- NOTE | 2017-08-27 11:26 | PN ---
[facility] CIWA - CIWA Score Nausea/Vomitin-No Nausea/No Vomiting Muscle Tremors: 4-Moderate,w/Arms Extend Anxiety: 4-Mod. Anxious/Guarded Agitation: 4-Moderately Restless Paroxysmal Sweats: 1-Minimal Palms Moist Orientation: 0-Oriented Tacttile Disturbances: 3-Moderate Itch/Numb/Burn Auditory Disturbances: 0-None Visual Disturbances: 0-None Headache: 0-None Present CIWA-Ar Total Score: 16 S Progress Note (SOAP) Subjective: ANXIETY,SLIGHT TREMORS,"GROGGY",STOMACH DISCOMFORT-DYSPEPSIA--TAKES OMEPRAZOLE. Objective: 08/27/17 11:25 Vital Signs Temperature 96.9 F L 08/27/17 09:25 Pulse Rate 83 08/27/17 09:25 Respiratory Rate 18 08/27/17 09:25 Blood Pressure 126/63 08/27/17 09:25 O2 Sat by Pulse Oximetry (%) Laboratory Last Values WBC 4.8 K/mm3 (4.0-10.0) 08/27/17 05:45 RBC 5.25 M/mm3 (4.00-5.60) 08/27/17 05:45 Hgb 12.5 GM/dL (11.7-16.9) 08/27/17 05:45 Hct 39.7 % (35.4-49) 08/27/17 05:45 MCV 75.6 fl (80-96) L 08/27/17 05:45 MCH 23.8 pg (25.7-33.7) L 08/27/17 05:45 MCHC 31.5 g/dl (32.0-35.9) L 08/27/17 05:45 RDW 19.8 % (11.9-15.9) H D 08/27/17 05:45 Plt Count 241 K/MM3 (134-434) 08/27/17 05:45 MPV 9.6 fl (7.5-11.1) D 08/27/17 05:45 Sodium 140 mmol/L (136-145) 08/27/17 05:45 Potassium 3.6 mmol/L (3.5-5.1) 08/27/17 05:45 Chloride 106 mmol/L (98-107) 08/27/17 05:45 Carbon Dioxide 24 mmol/L (21-32) 08/27/17 05:45 Anion Gap 10 (8-16) 08/27/17 05:45 BUN 6 mg/dL (7-18) L 08/27/17 05:45 Creatinine 1.0 mg/dL (0.7-1.3) 08/27/17 05:45 Creat Clearance w eGFR > 60 (>60) 08/27/17 05:45 Random Glucose 103 mg/dL (74-106) D 08/27/17 05:45 Calcium 8.7 mg/dL (8.5-10.1) 08/27/17 05:45 Total Bilirubin 0.4 mg/dL (0.2-1.0) 08/27/17 05:45 AST 24 U/L (15-37) 08/27/17 05:45 ALT 27 U/L (12-78) 08/27/17 05:45 Alkaline Phosphatase 58 U/L (45-117) 08/27/17 05:45 Total Protein 7.7 g/dl (6.4-8.2) 08/27/17 05:45 Albumin 4.0 g/dl (3.4-5.0) D 08/27/17 05:45 Urine Color Ltyellow 08/26/17 14:00 Urine Appearance Clear 08/26/17 14:00 Urine pH 6.0 (5.0-8.0) 08/26/17 14:00 Ur Specific [place] 1.008 (1.001-1.035) 08/26/17 14:00 Urine Protein Negative (NEGATIVE) 08/26/17 14:00 Urine Glucose (UA) Negative (NEGATIVE) 08/26/17 14:00 Urine Ketones Negative (NEGATIVE) 08/26/17 14:00 Urine Blood Negative (NEGATIVE) 08/26/17 14:00 Urine Nitrite Negative (NEGATIVE) 08/26/17 14:00 Urine Bilirubin Negative (<2.0 mg/dL) 08/26/17 14:00 Urine Urobilinogen Negative mg/dL (0.2-1.0) 08/26/17 14:00 Ur Leukocyte Esterase Negative (NEGATIVE) 08/26/17 14:00 HIV 1&2 Antibody Screen Negative 08/26/17 12:15 HIV P24 Antigen Negative 08/26/17 12:15 Assessment: 08/27/17 11:25 WITHDRAWAL SX Plan: CONTINUE DETOX ZANTAC DIRECTED.
[2017-08-27] MEDS: QUEtiapine FUMARATE 100 MG TABLET (FP) PO SCH (22:42)
[2017-08-27] MEDS: busPIRone HCL 5 MG TABLET PO SCH (22:42)
[2017-08-27] MEDS: THIAMINE HCL 100 MG TABLET (FP) PO SCH (22:42)
[2017-08-27] MEDS: traZODone HCL 50 MG TABLET (FP) PO SCH (22:42)
[2017-08-27] MEDS: MINERAL OIL/PETROLAT/WATER TOPICAL CREAM 113 GM JAR TP SCH (22:42)
[2017-08-28] MEDS: MAG HYDROX/AL HYDROX/SIMETH 30 ML UNIT-DOSE CUP PO PRN (02:25)
[2017-08-28] MEDS: chlordiazePOXIDE HCL 25 MG CAPSULE PO SCH ×2 (05:47→10:37)
[2017-08-28] MEDS: busPIRone HCL 5 MG TABLET PO SCH ×2 (10:37→22:33)
[2017-08-28] MEDS: LISINOPRIL 10 MG TABLET (FP) PO SCH (10:37)
[2017-08-28] MEDS: PRENATAL VITAMINS W/ FOLIC ACID TABLET (FP) PO SCH (10:37)
[2017-08-28] MEDS: amLODIPine BESYLATE 5 MG TABLET (FP) PO SCH (10:38)
[2017-08-28] MEDS: NICOTINE 21 MG/24 HOURS TOPICAL PATCH TD SCH (10:38)
[2017-08-28] MEDS: LABETALOL HCL 200 MG TABLET (FP) PO SCH (10:38)
[2017-08-28] MEDS: RANITIDINE HCL 150 MG TABLET (FP) PO SCH (10:38)
[2017-08-28] MEDS: BUDESONIDE/FORMETEROL FUMARATE 80/4.5 mcg INHALER IH SCH ×2 (10:38→22:35)
[2017-08-28] MEDS: chlordiazePOXIDE HCL 25 MG CAPSULE PO PRN (15:10)
--- NOTE | 2017-08-28 15:31 | PN ---
[facility] CIWA - CIWA Score Nausea/Vomitin-Mild Nausea/No Vomiting (DAIRRHEA) Muscle Tremors: 4-Moderate,w/Arms Extend Anxiety: 1-Mildly Anxious Agitation: 4-Moderately Restless Paroxysmal Sweats: 1-Minimal Palms Moist Orientation: 0-Oriented Tacttile Disturbances: 3-Moderate Itch/Numb/Burn Auditory Disturbances: 0-None Visual Disturbances: 0-None Headache: 0-None Present CIWA-Ar Total Score: 14 S Progress Note (SOAP) Subjective: ANXIETY,IRRITABILITY,FATIGUE, NASAL CONGESTION. REPORTS DIARRHEA X 3 MONTHS AND HX OF AMADOR'S ESOPHAGEAL. PT STATED THAT HE IS CURRENTLY IN CARE OF GI SPECIALISTS AND WAS TO DO COLONOSCOPY AND ENDOSCOPY YESTERDAY BUT CAME HERE. PT CONTACTED HIS DOCTOR TODAY AND HAS BEEN ADVISED TO COME IN TO FOLLOW UP WITH RESULTS OF LABS AND TESTS DONE. PT WILL BE DISCHARGED IN AM TO FOLLOW UP WITH HIS DOCTOR'S APPOINTMENTS. ALERT O X 3. OOB WITH STEADY GAIT. Objective: 08/28/17 15:26 Vital Signs Temperature 96.3 F L 08/28/17 13:26 Pulse Rate 89 08/28/17 13:26 Respiratory Rate 18 08/28/17 13:26 Blood Pressure 127/79 08/28/17 13:26 O2 Sat by Pulse Oximetry (%) Laboratory Last Values WBC 4.8 K/mm3 (4.0-10.0) 08/27/17 05:45 RBC 5.25 M/mm3 (4.00-5.60) 08/27/17 05:45 Hgb 12.5 GM/dL (11.7-16.9) 08/27/17 05:45 Hct 39.7 % (35.4-49) 08/27/17 05:45 MCV 75.6 fl (80-96) L 08/27/17 05:45 MCH 23.8 pg (25.7-33.7) L 08/27/17 05:45 MCHC 31.5 g/dl (32.0-35.9) L 08/27/17 05:45 RDW 19.8 % (11.9-15.9) H D 08/27/17 05:45 Plt Count 241 K/MM3 (134-434) 08/27/17 05:45 MPV 9.6 fl (7.5-11.1) D 08/27/17 05:45 Sodium 140 mmol/L (136-145) 08/27/17 05:45 Potassium 3.6 mmol/L (3.5-5.1) 08/27/17 05:45 Chloride 106 mmol/L (98-107) 08/27/17 05:45 Carbon Dioxide 24 mmol/L (21-32) 08/27/17 05:45 Anion Gap 10 (8-16) 08/27/17 05:45 BUN 6 mg/dL (7-18) L 08/27/17 05:45 Creatinine 1.0 mg/dL (0.7-1.3) 08/27/17 05:45 Creat Clearance w eGFR > 60 (>60) 08/27/17 05:45 Random Glucose 103 mg/dL (74-106) D 08/27/17 05:45 Calcium 8.7 mg/dL (8.5-10.1) 08/27/17 05:45 Total Bilirubin 0.4 mg/dL (0.2-1.0) 08/27/17 05:45 AST 24 U/L (15-37) 08/27/17 05:45 ALT 27 U/L (12-78) 08/27/17 05:45 Alkaline Phosphatase 58 U/L (45-117) 08/27/17 05:45 Total Protein 7.7 g/dl (6.4-8.2) 08/27/17 05:45 Albumin 4.0 g/dl (3.4-5.0) D 08/27/17 05:45 Urine Color Ltyellow 08/26/17 14:00 Urine Appearance Clear 08/26/17 14:00 Urine pH 6.0 (5.0-8.0) 08/26/17 14:00 Ur Specific [place] 1.008 (1.001-1.035) 08/26/17 14:00 Urine Protein Negative (NEGATIVE) 08/26/17 14:00 Urine Glucose (UA) Negative (NEGATIVE) 08/26/17 14:00 Urine Ketones Negative (NEGATIVE) 08/26/17 14:00 Urine Blood Negative (NEGATIVE) 08/26/17 14:00 Urine Nitrite Negative (NEGATIVE) 08/26/17 14:00 Urine Bilirubin Negative (<2.0 mg/dL) 08/26/17 14:00 Urine Urobilinogen Negative mg/dL (0.2-1.0) 08/26/17 14:00 Ur Leukocyte Esterase Negative (NEGATIVE) 08/26/17 14:00 RPR Titer Nonreactive (NONREACTIVE) 08/27/17 05:45 HIV 1&2 Antibody Screen Negative 08/26/17 12:15 HIV P24 Antigen Negative 08/26/17 12:15 Assessment: 08/28/17 15:26 WITHDRAWAL SX Plan: CONTINUE DETOX
[2017-08-28] MEDS: chlordiazePOXIDE 5 MG CAPSULE PO SCH ×2 (17:24→23:01)
[2017-08-28] MEDS: traZODone HCL 50 MG TABLET (FP) PO SCH (22:33)
[2017-08-28] MEDS: THIAMINE HCL 100 MG TABLET (FP) PO SCH (22:33)
[2017-08-28] MEDS: QUEtiapine FUMARATE 100 MG TABLET (FP) PO SCH (22:33)
[2017-08-28] MEDS: guaiFENesin/D-METHORPHAN HB 10 ML UNIT-DOSE CUPS PO PRN (22:35)
[2017-08-28] MEDS: MINERAL OIL/PETROLAT/WATER TOPICAL CREAM 113 GM JAR TP SCH (22:35)
[2017-08-28] MEDS ORDERED: chlordiazePOXIDE 5 MG CAPSULE PO SCH (23:00)
[2017-08-29] MEDS: MAG HYDROX/AL HYDROX/SIMETH 30 ML UNIT-DOSE CUP PO PRN (00:51)
[2017-08-29] MEDS ORDERED: chlordiazePOXIDE HCL 10 MG CAPSULE PO SCH ×2 (05:00→23:00)
--- NOTE | 2017-08-29 08:59 | DS ---
[facility] Detox Discharge Summary Admission Date: 08/26/17 Discharge Date: 08/29/17 - History Present History: Alcohol Dependence Additional Comments: DETOX COMPLETED. ALERT O X 3. NAD. PT INSTRUCTED TO FOLLOW UP WITH HIS PMD DR. HETAL CARPIO AT [address] [place] [address] FOR MEDICAL MANAGEMENT. COURTESY RX SENT TO PATIENT'S PHARMACY. Pertinent Past History: PLEASE SEE DX BELOW - Physical Exam Results Vital Signs: Vital Signs Temperature 96 F L 08/29/17 06:29 Pulse Rate 91 H 08/29/17 06:29 Respiratory Rate 18 08/29/17 06:29 Blood Pressure 150/99 08/29/17 06:29 O2 Sat by Pulse Oximetry (%) Pertinent Admission Physical Exam Findings: WITHDRAWAL SX Laboratory Last Values WBC 4.8 K/mm3 (4.0-10.0) 08/27/17 05:45 RBC 5.25 M/mm3 (4.00-5.60) 08/27/17 05:45 Hgb 12.5 GM/dL (11.7-16.9) 08/27/17 05:45 Hct 39.7 % (35.4-49) 08/27/17 05:45 MCV 75.6 fl (80-96) L 08/27/17 05:45 MCH 23.8 pg (25.7-33.7) L 08/27/17 05:45 MCHC 31.5 g/dl (32.0-35.9) L 08/27/17 05:45 RDW 19.8 % (11.9-15.9) H D 08/27/17 05:45 Plt Count 241 K/MM3 (134-434) 08/27/17 05:45 MPV 9.6 fl (7.5-11.1) D 08/27/17 05:45 Sodium 140 mmol/L (136-145) 08/27/17 05:45 Potassium 3.6 mmol/L (3.5-5.1) 08/27/17 05:45 Chloride 106 mmol/L (98-107) 08/27/17 05:45 Carbon Dioxide 24 mmol/L (21-32) 08/27/17 05:45 Anion Gap 10 (8-16) 08/27/17 05:45 BUN 6 mg/dL (7-18) L 08/27/17 05:45 Creatinine 1.0 mg/dL (0.7-1.3) 08/27/17 05:45 Creat Clearance w eGFR > 60 (>60) 08/27/17 05:45 Random Glucose 103 mg/dL (74-106) D 08/27/17 05:45 Calcium 8.7 mg/dL (8.5-10.1) 08/27/17 05:45 Total Bilirubin 0.4 mg/dL (0.2-1.0) 08/27/17 05:45 AST 24 U/L (15-37) 08/27/17 05:45 ALT 27 U/L (12-78) 08/27/17 05:45 Alkaline Phosphatase 58 U/L (45-117) 08/27/17 05:45 Total Protein 7.7 g/dl (6.4-8.2) 08/27/17 05:45 Albumin 4.0 g/dl (3.4-5.0) D 08/27/17 05:45 Urine Color Ltyellow 08/26/17 14:00 Urine Appearance Clear 08/26/17 14:00 Urine pH 6.0 (5.0-8.0) 08/26/17 14:00 Ur Specific [place] 1.008 (1.001-1.035) 08/26/17 14:00 Urine Protein Negative (NEGATIVE) 08/26/17 14:00 Urine Glucose (UA) Negative (NEGATIVE) 08/26/17 14:00 Urine Ketones Negative (NEGATIVE) 08/26/17 14:00 Urine Blood Negative (NEGATIVE) 08/26/17 14:00 Urine Nitrite Negative (NEGATIVE) 08/26/17 14:00 Urine Bilirubin Negative (<2.0 mg/dL) 08/26/17 14:00 Urine Urobilinogen Negative mg/dL (0.2-1.0) 08/26/17 14:00 Ur Leukocyte Esterase Negative (NEGATIVE) 08/26/17 14:00 RPR Titer Nonreactive (NONREACTIVE) 08/27/17 05:45 HIV 1&2 Antibody Screen Negative 08/26/17 12:15 HIV P24 Antigen Negative 08/26/17 12:15 - Treatment Hospital Course: Detox Protocol Followed, Detoxed Safely, Responded well, Discharged Condition Good - Medication Discharge Medications: Ambulatory Orders traZODone HCL [Desyrel -] 100 mg PO HS #30 tablet 06/08/17 Albuterol Sulfate Inhaler - [Ventolin HFA Inhaler -] 2 inh PO Q4H PRN 08/26/17 Omeprazole 40 mg PO DAILY 08/26/17 Quetiapine Fumarate [Seroquel] 300 mg PO HS 08/26/17 Amlodipine Besylate [Norvasc -] 5 mg PO DAILY #30 tablet 08/29/17 Labetalol HCl [Normodyne -] 200 mg PO DAILY #30 tablet 08/29/17 Lisinopril 10 mg PO DAILY #30 tablet 08/29/17 Pantoprazole Sodium [Protonix -] 40 mg PO DAILY #30 tablet.ec 08/29/17 - Diagnosis (1) Alcohol dependence with uncomplicated withdrawal Status: Acute (2) Nicotine dependence Status: Acute Qualifiers: Nicotine product type: cigarettes Substance use status: in withdrawal Qualified Code(s): F17.213 - Nicotine dependence, cigarettes, with withdrawal (3) Dry skin dermatitis Status: Chronic (4) GERD (gastroesophageal reflux disease) Status: Chronic Qualifiers: Esophagitis presence: without esophagitis Qualified Code(s): K21.9 - Gastro -esophageal reflux disease without esophagitis (5) HTN (hypertension) Status: Chronic Qualifiers: Hypertension type: essential hypertension Qualified Code(s): I10 - Essential (primary) hypertension (6) COPD (chronic obstructive pulmonary disease) Status: Chronic Qualifiers: COPD type: emphysema - AMA Did Patient Leave Against Medical Advice: No
[2017-08-29 09:21] VITALS: BP 138/96; PULSE 112; TEMP 98.4
[2017-08-29] MEDS ORDERED: PANTOPRAZOLE 40 MG TABLET (FP) PO SCH (10:00)
[2017-08-30] MEDS ORDERED: chlordiazePOXIDE HCL 10 MG CAPSULE PO SCH (05:00)
== END 2017-08-29 08:52 | disposition home or self-care (01) | DRG 775 ==
LOC: YASAS 10:39 → Y3N 13:35
PROVIDERS: ADMIT Internal Medicine; ATTEND Internal Medicine
PROC: HZ2ZZZZ Detoxification Services for Substance Abuse Treatment (ICD-10-PCS; principal; 2017-08-26)
DX: F10.230 Alcohol dependence with withdrawal, uncomplicated (principal); F17.210 Nicotine dependence, cigarettes, uncomplicated; F31.81 Bipolar II disorder; F19.24 Other psychoactive substance dependence with psychoactive substance-induced mood disorder; F34.1 Dysthymic disorder; G47.00 Insomnia, unspecified; I10 Essential (primary) hypertension; K21.9 Gastro-esophageal reflux disease without esophagitis; J44.9 Chronic obstructive pulmonary disease, unspecified; R56.9 Unspecified convulsions; Z91.5 Personal history of self-harm; Z59.0 Homelessness
CPT/HCPCS: 36415; 80053; 81003; 85027; 86593; 87389; 93005; 93010

== ENCOUNTER 2017-09-26 13:09 | Inpatient (IN) | payer OTHER ==
[2017-09-26 14:37] VITALS: BMI 37.0
[2017-09-26] MEDS ORDERED: P-EPHED 60MG/TRIPROLIDI 2.5MG TABLET PO PRN (18:07)
[2017-09-26] MEDS ORDERED: MENTHOL/PHENOL 1 EACH UD MM PRN (18:07)
[2017-09-26] MEDS ORDERED: LOPERAMIDE HCL 2 MG CAPSULE PO PRN (18:07)
[2017-09-26] MEDS ORDERED: ACETAMINOPHEN 325 MG TABLET (FP) PO PRN (18:07)
[2017-09-26] MEDS ORDERED: hydrOXYzine PAMOATE 50 MG CAPSULE (FP) PO PRN (18:07)
[2017-09-26] MEDS ORDERED: MAGNESIUM CITRATE 300 ML BOTTLE PO PRN (18:07)
[2017-09-26] MEDS ORDERED: MAGNESIUM HYDROX 2400MG/30ML ORAL SUSPENSION 30 ML CUP PO PRN (18:07)
[2017-09-26] MEDS ORDERED: MAG HYDROX/AL HYDROX/SIMETH 30 ML UNIT-DOSE CUP PO PRN (18:07)
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
[2017-09-26] MEDS ORDERED: ALBUTEROL SO4 18 GM HFA INHALER IH PRN (18:08)
[2017-09-26] MEDS ORDERED: ONDANSETRON 8 MG TABLET (FP) PO PRN (20:50)
--- NOTE | 2017-09-26 21:11 | PN ---
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 Chart reviewed. Pharmacy claims reviewed. Will order seroquel 100mg qhs + Trazodone 100mg qhs.
[2017-09-26] MEDS: QUEtiapine FUMARATE 100 MG TABLET (FP) PO SCH (21:53)
[2017-09-26] MEDS: THIAMINE HCL 100 MG TABLET (FP) PO SCH (21:53)
[2017-09-26] MEDS: traZODone HCL 100 MG TABLET (FP) PO SCH (21:53)
[2017-09-26] MEDS ORDERED: MELATONIN 5 MG TABLETS PO PRN (22:00)
[2017-09-27] MEDS: LISINOPRIL 10 MG TABLET (FP) PO SCH (10:21)
[2017-09-27] MEDS: PRENATAL VITAMINS W/ FOLIC ACID TABLET (FP) PO SCH (10:21)
[2017-09-27] MEDS: amLODIPine BESYLATE 5 MG TABLET (FP) PO SCH (10:21)
[2017-09-27] MEDS: NICOTINE 14 MG/24 HOURS TOPICAL PATCH TD SCH (10:21)
[2017-09-27] MEDS: PANTOPRAZOLE 40 MG TABLET (FP) PO SCH (10:21)
[2017-09-27] MEDS: LABETALOL HCL 200 MG TABLET (FP) PO SCH (10:22)
[2017-09-27 10:59] LABS: URINE APPEARANCE CLEAR; URINE BILIRUBIN NEGATIVE (<2.0 mg/dL); URINE COLOR STRAW; URINE GLUCOSE (UA) NEGATIVE (NEGATIVE); URINE KETONE NEGATIVE (NEGATIVE); URINE LEUK ESTERASE NEGATIVE (NEGATIVE); URINE NITRITE NEGATIVE (NEGATIVE); URINE PROTEIN NEGATIVE (NEGATIVE); URINE UROBILINOGEN NEGATIVE mg/dL (0.2-1.0)
--- NOTE | 2017-09-27 11:35 | EKG ---
Test Reason : Blood Pressure : / mmHG Vent. Rate : 085 BPM Atrial Rate : 085 BPM P-R Int : 164 ms QRS Dur : 084 ms QT Int : 376 ms P-R-T Axes : 072 -09 078 degrees QTc Int : 447 ms SINUS RHYTHM WITH MARKED SINUS ARRHYTHMIA POSSIBLE ANTERIOR INFARCT (CITED ON OR BEFORE 26-AUG-2017) ABNORMAL ECG WHEN COMPARED WITH ECG OF 26-AUG-2017 14:43, NO SIGNIFICANT CHANGE WAS FOUND Confirmed by FANTASMA SANCHES MD ([id number]) on 09/27/2017 11:35:13 AM Referred By: Confirmed By:FANTASMA SANCHES MD
[2017-09-27 15:12] LABS: HEMATOCRIT 40.1 % (35.4-49); HEMOGLOBIN 13.2 GM/dL (11.7-16.9); MCH 24.5 pg (25.7-33.7); MCHC 32.8 g/dl (32.0-35.9); MEAN CELL VOLUME 74.7 fl (80-96); MEAN PLT VOLUME 8.8 fl (7.5-11.1); PLATELET COUNT 275 K/MM3 (134-434); RBC 5.37 M/mm3 (4.00-5.60); RDW 20.6 % (11.9-15.9); WHITE BLOOD COUNT 4.9 K/mm3 (4.0-10.0)
[2017-09-27 15:20] LABS: ALBUMIN 4.1 g/dl (3.4-5.0); ANION GAP 4 (8-16); BLOOD UREA NITROGEN 9 mg/dL (7-18); CALCIUM 8.6 mg/dL (8.5-10.1); CHLORIDE 106 mmol/L (98-107); CO2 30 mmol/L (21-32); GLUCOSE,RANDOM 108 mg/dL (74-106); POTASSIUM 3.5 mmol/L (3.5-5.1); SODIUM 140 mmol/L (136-145)
[2017-09-27 15:26] LABS: ALK PHOS 67 U/L (45-117); BILIRUBIN,TOTAL 0.5 mg/dL (0.2-1.0); CREATININE 1.2 mg/dL (0.7-1.3); SGOT/AST 27 U/L (15-37); SGPT/ALT 30 U/L (12-78); TOT PROT 7.9 g/dl (6.4-8.2)
[2017-09-27 15:54] LABS: ADD RBC MORPHOLOGY YES; ANISOCYTOSIS 1+
[2017-09-27] MEDS: THIAMINE HCL 100 MG TABLET (FP) PO SCH (21:49)
[2017-09-27] MEDS: traZODone HCL 100 MG TABLET (FP) PO SCH (21:49)
[2017-09-27] MEDS: QUEtiapine FUMARATE 100 MG TABLET (FP) PO SCH (21:49)
[2017-09-28] MEDS: PANTOPRAZOLE 40 MG TABLET (FP) PO SCH (10:06)
[2017-09-28] MEDS: amLODIPine BESYLATE 5 MG TABLET (FP) PO SCH (10:06)
[2017-09-28] MEDS: LISINOPRIL 10 MG TABLET (FP) PO SCH (10:06)
[2017-09-28] MEDS: NICOTINE 14 MG/24 HOURS TOPICAL PATCH TD SCH (10:06)
[2017-09-28] MEDS: PRENATAL VITAMINS W/ FOLIC ACID TABLET (FP) PO SCH (10:06)
[2017-09-28] MEDS: LABETALOL HCL 200 MG TABLET (FP) PO SCH (10:06)
[2017-09-28] MEDS: THIAMINE HCL 100 MG TABLET (FP) PO SCH (21:23)
[2017-09-28] MEDS: QUEtiapine FUMARATE 100 MG TABLET (FP) PO SCH (21:23)
[2017-09-28] MEDS: traZODone HCL 100 MG TABLET (FP) PO SCH (21:23)
[2017-09-28] MEDS: guaiFENesin/D-METHORPHAN HB 10 ML UNIT-DOSE CUPS PO PRN (21:24)
[2017-09-29] MEDS: NICOTINE 14 MG/24 HOURS TOPICAL PATCH TD SCH (10:20)
[2017-09-29] MEDS: LISINOPRIL 10 MG TABLET (FP) PO SCH (10:20)
[2017-09-29] MEDS: amLODIPine BESYLATE 5 MG TABLET (FP) PO SCH (10:20)
[2017-09-29] MEDS: PANTOPRAZOLE 40 MG TABLET (FP) PO SCH (10:21)
[2017-09-29] MEDS: LABETALOL HCL 200 MG TABLET (FP) PO SCH (10:21)
[2017-09-29] MEDS: PRENATAL VITAMINS W/ FOLIC ACID TABLET (FP) PO SCH (10:21)
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
[2017-09-29] MEDS: busPIRone HCL 5 MG TABLET PO SCH ×2 (16:00→21:27)
[2017-09-29] MEDS: traZODone HCL 100 MG TABLET (FP) PO SCH (21:27)
[2017-09-29] MEDS: THIAMINE HCL 100 MG TABLET (FP) PO SCH (21:27)
[2017-09-29] MEDS: QUEtiapine FUMARATE 200 MG TABLET PO SCH (21:27)
[2017-09-29] MEDS: guaiFENesin/D-METHORPHAN HB 10 ML UNIT-DOSE CUPS PO PRN (21:29)
[2017-09-30] MEDS: busPIRone HCL 5 MG TABLET PO SCH ×3 (06:47→21:25)
[2017-09-30] MEDS: amLODIPine BESYLATE 5 MG TABLET (FP) PO SCH (10:01)
[2017-09-30] MEDS: PRENATAL VITAMINS W/ FOLIC ACID TABLET (FP) PO SCH (10:01)
[2017-09-30] MEDS: LISINOPRIL 10 MG TABLET (FP) PO SCH (10:01)
[2017-09-30] MEDS: NICOTINE 14 MG/24 HOURS TOPICAL PATCH TD SCH (10:03)
[2017-09-30] MEDS: PANTOPRAZOLE 40 MG TABLET (FP) PO SCH (10:03)
[2017-09-30] MEDS ORDERED: ONDANSETRON *ODT* 4 MG TABLET SL PRN (10:35)
[2017-09-30] MEDS: LABETALOL HCL 200 MG TABLET (FP) PO SCH (11:49)
[2017-09-30] MEDS: QUEtiapine FUMARATE 200 MG TABLET PO SCH (21:25)
[2017-09-30] MEDS: THIAMINE HCL 100 MG TABLET (FP) PO SCH (21:25)
[2017-09-30] MEDS: traZODone HCL 100 MG TABLET (FP) PO SCH (21:25)
[2017-09-30] MEDS: guaiFENesin/D-METHORPHAN HB 10 ML UNIT-DOSE CUPS PO PRN (21:27)
[2017-10-01] MEDS: busPIRone HCL 5 MG TABLET PO SCH ×3 (06:38→21:37)
[2017-10-01] MEDS: amLODIPine BESYLATE 5 MG TABLET (FP) PO SCH (09:51)
[2017-10-01] MEDS: LABETALOL HCL 200 MG TABLET (FP) PO SCH (09:51)
[2017-10-01] MEDS: NICOTINE 14 MG/24 HOURS TOPICAL PATCH TD SCH (09:51)
[2017-10-01] MEDS: LISINOPRIL 10 MG TABLET (FP) PO SCH (09:51)
[2017-10-01] MEDS: PRENATAL VITAMINS W/ FOLIC ACID TABLET (FP) PO SCH (09:51)
[2017-10-01] MEDS: PANTOPRAZOLE 40 MG TABLET (FP) PO SCH (09:51)
[2017-10-01] MEDS: QUEtiapine FUMARATE 200 MG TABLET PO SCH (21:37)
[2017-10-01] MEDS: traZODone HCL 100 MG TABLET (FP) PO SCH (21:37)
[2017-10-01] MEDS: THIAMINE HCL 100 MG TABLET (FP) PO SCH (21:37)
[2017-10-02] MEDS: busPIRone HCL 5 MG TABLET PO SCH ×3 (06:32→21:47)
[2017-10-02] MEDS: LABETALOL HCL 200 MG TABLET (FP) PO SCH (10:07)
[2017-10-02] MEDS: amLODIPine BESYLATE 5 MG TABLET (FP) PO SCH (10:07)
[2017-10-02] MEDS: PRENATAL VITAMINS W/ FOLIC ACID TABLET (FP) PO SCH (10:07)
[2017-10-02] MEDS: PANTOPRAZOLE 40 MG TABLET (FP) PO SCH (10:07)
[2017-10-02] MEDS: LISINOPRIL 10 MG TABLET (FP) PO SCH (10:07)
[2017-10-02] MEDS: NICOTINE 14 MG/24 HOURS TOPICAL PATCH TD SCH (10:09)
[2017-10-02] MEDS: QUEtiapine FUMARATE 200 MG TABLET PO SCH (21:47)
[2017-10-02] MEDS: traZODone HCL 100 MG TABLET (FP) PO SCH (21:47)
[2017-10-02] MEDS: guaiFENesin/D-METHORPHAN HB 10 ML UNIT-DOSE CUPS PO PRN (21:48)
[2017-10-02] MEDS: THIAMINE HCL 100 MG TABLET (FP) PO SCH (21:48)
--- NOTE | 2017-10-02 23:09 | PN ---
[facility] Progress Note Note: Patient with dry feet A&D oint BID to area Increase fluids Continue to monitor
[2017-10-03] MEDS: busPIRone HCL 5 MG TABLET PO SCH ×3 (06:35→21:23)
[2017-10-03] MEDS: amLODIPine BESYLATE 5 MG TABLET (FP) PO SCH (09:58)
[2017-10-03] MEDS: PRENATAL VITAMINS W/ FOLIC ACID TABLET (FP) PO SCH (09:59)
[2017-10-03] MEDS: NICOTINE 14 MG/24 HOURS TOPICAL PATCH TD SCH (09:59)
[2017-10-03] MEDS: LISINOPRIL 10 MG TABLET (FP) PO SCH (09:59)
[2017-10-03] MEDS: LABETALOL HCL 200 MG TABLET (FP) PO SCH (09:59)
[2017-10-03] MEDS: PANTOPRAZOLE 40 MG TABLET (FP) PO SCH (09:59)
[2017-10-03] MEDS: VITAMINS A AND D TOPICAL OINTMENT 60 GM TUBE TP SCH ×2 (10:00→21:25)
[2017-10-03] MEDS: QUEtiapine FUMARATE 200 MG TABLET PO SCH (21:23)
[2017-10-03] MEDS: traZODone HCL 100 MG TABLET (FP) PO SCH (21:23)
[2017-10-03] MEDS: THIAMINE HCL 100 MG TABLET (FP) PO SCH (21:23)
[2017-10-03] MEDS: guaiFENesin/D-METHORPHAN HB 10 ML UNIT-DOSE CUPS PO PRN (21:23)
[2017-10-04] MEDS: busPIRone HCL 5 MG TABLET PO SCH ×3 (06:35→21:32)
[2017-10-04] MEDS: NICOTINE 14 MG/24 HOURS TOPICAL PATCH TD SCH (09:59)
[2017-10-04] MEDS: amLODIPine BESYLATE 5 MG TABLET (FP) PO SCH (10:00)
[2017-10-04] MEDS: LABETALOL HCL 200 MG TABLET (FP) PO SCH (10:00)
[2017-10-04] MEDS: PANTOPRAZOLE 40 MG TABLET (FP) PO SCH (10:00)
[2017-10-04] MEDS: PRENATAL VITAMINS W/ FOLIC ACID TABLET (FP) PO SCH (10:00)
[2017-10-04] MEDS: LISINOPRIL 10 MG TABLET (FP) PO SCH (10:00)
[2017-10-04] MEDS: VITAMINS A AND D TOPICAL OINTMENT 60 GM TUBE TP SCH ×2 (10:00→21:33)
[2017-10-04] MEDS: traZODone HCL 100 MG TABLET (FP) PO SCH (21:32)
[2017-10-04] MEDS: QUEtiapine FUMARATE 200 MG TABLET PO SCH (21:32)
[2017-10-04] MEDS: THIAMINE HCL 100 MG TABLET (FP) PO SCH (21:33)
[2017-10-04] MEDS: guaiFENesin/D-METHORPHAN HB 10 ML UNIT-DOSE CUPS PO PRN (21:34)
[2017-10-05] MEDS: busPIRone HCL 5 MG TABLET PO SCH ×3 (06:15→21:34)
[2017-10-05] MEDS: NICOTINE 14 MG/24 HOURS TOPICAL PATCH TD SCH (10:14)
[2017-10-05] MEDS: VITAMINS A AND D TOPICAL OINTMENT 60 GM TUBE TP SCH ×2 (10:14→21:37)
[2017-10-05] MEDS: amLODIPine BESYLATE 5 MG TABLET (FP) PO SCH (10:14)
[2017-10-05] MEDS: PANTOPRAZOLE 40 MG TABLET (FP) PO SCH (10:14)
[2017-10-05] MEDS: LISINOPRIL 10 MG TABLET (FP) PO SCH (10:14)
[2017-10-05] MEDS: PRENATAL VITAMINS W/ FOLIC ACID TABLET (FP) PO SCH (10:14)
[2017-10-05] MEDS: LABETALOL HCL 200 MG TABLET (FP) PO SCH (10:14)
[2017-10-05] MEDS: THIAMINE HCL 100 MG TABLET (FP) PO SCH (21:34)
[2017-10-05] MEDS: QUEtiapine FUMARATE 200 MG TABLET PO SCH (21:34)
[2017-10-05] MEDS: guaiFENesin/D-METHORPHAN HB 10 ML UNIT-DOSE CUPS PO PRN (21:35)
[2017-10-05] MEDS: IBUPROFEN 400 MG TABLET (FP) PO PRN (21:35)
[2017-10-05] MEDS: traZODone HCL 100 MG TABLET (FP) PO SCH (21:37)
[2017-10-06] MEDS: busPIRone HCL 5 MG TABLET PO SCH ×3 (06:14→21:38)
[2017-10-06] MEDS: PANTOPRAZOLE 40 MG TABLET (FP) PO SCH (10:09)
[2017-10-06] MEDS: VITAMINS A AND D TOPICAL OINTMENT 60 GM TUBE TP SCH ×2 (10:09→21:39)
[2017-10-06] MEDS: PRENATAL VITAMINS W/ FOLIC ACID TABLET (FP) PO SCH (10:09)
[2017-10-06] MEDS: LABETALOL HCL 200 MG TABLET (FP) PO SCH (10:09)
[2017-10-06] MEDS: LISINOPRIL 10 MG TABLET (FP) PO SCH (10:09)
[2017-10-06] MEDS: amLODIPine BESYLATE 5 MG TABLET (FP) PO SCH (10:09)
[2017-10-06] MEDS: NICOTINE 14 MG/24 HOURS TOPICAL PATCH TD SCH (10:09)
[2017-10-06] MEDS: guaiFENesin/D-METHORPHAN HB 10 ML UNIT-DOSE CUPS PO PRN ×2 (10:11→21:40)
[2017-10-06] MEDS: traZODone HCL 100 MG TABLET (FP) PO SCH (21:38)
[2017-10-06] MEDS: QUEtiapine FUMARATE 200 MG TABLET PO SCH (21:38)
[2017-10-06] MEDS: THIAMINE HCL 100 MG TABLET (FP) PO SCH (21:38)
[2017-10-07] MEDS: busPIRone HCL 5 MG TABLET PO SCH ×3 (06:15→21:25)
[2017-10-07] MEDS: LABETALOL HCL 200 MG TABLET (FP) PO SCH (10:06)
[2017-10-07] MEDS: VITAMINS A AND D TOPICAL OINTMENT 60 GM TUBE TP SCH ×2 (10:06→21:49)
[2017-10-07] MEDS: PRENATAL VITAMINS W/ FOLIC ACID TABLET (FP) PO SCH (10:06)
[2017-10-07] MEDS: LISINOPRIL 10 MG TABLET (FP) PO SCH (10:06)
[2017-10-07] MEDS: PANTOPRAZOLE 40 MG TABLET (FP) PO SCH (10:06)
[2017-10-07] MEDS: amLODIPine BESYLATE 5 MG TABLET (FP) PO SCH (10:06)
[2017-10-07] MEDS: NICOTINE 14 MG/24 HOURS TOPICAL PATCH TD SCH (10:06)
[2017-10-07] MEDS: IBUPROFEN 400 MG TABLET (FP) PO PRN (11:12)
[2017-10-07] MEDS: traZODone HCL 100 MG TABLET (FP) PO SCH (21:25)
[2017-10-07] MEDS: THIAMINE HCL 100 MG TABLET (FP) PO SCH (21:25)
[2017-10-07] MEDS: QUEtiapine FUMARATE 200 MG TABLET PO SCH (21:25)
[2017-10-07] MEDS: guaiFENesin/D-METHORPHAN HB 10 ML UNIT-DOSE CUPS PO PRN (21:26)
[2017-10-08] MEDS: busPIRone HCL 5 MG TABLET PO SCH ×3 (06:18→21:28)
[2017-10-08] MEDS: PRENATAL VITAMINS W/ FOLIC ACID TABLET (FP) PO SCH (10:22)
[2017-10-08] MEDS: LABETALOL HCL 200 MG TABLET (FP) PO SCH (10:23)
[2017-10-08] MEDS: amLODIPine BESYLATE 5 MG TABLET (FP) PO SCH (10:23)
[2017-10-08] MEDS: LISINOPRIL 10 MG TABLET (FP) PO SCH (10:23)
[2017-10-08] MEDS: PANTOPRAZOLE 40 MG TABLET (FP) PO SCH (10:23)
[2017-10-08] MEDS: NICOTINE 14 MG/24 HOURS TOPICAL PATCH TD SCH (10:23)
[2017-10-08] MEDS: guaiFENesin/D-METHORPHAN HB 10 ML UNIT-DOSE CUPS PO PRN (10:24)
[2017-10-08] MEDS: VITAMINS A AND D TOPICAL OINTMENT 60 GM TUBE TP SCH ×2 (10:24→21:29)
[2017-10-08] MEDS: QUEtiapine FUMARATE 200 MG TABLET PO SCH (21:28)
[2017-10-08] MEDS: traZODone HCL 100 MG TABLET (FP) PO SCH (21:28)
[2017-10-08] MEDS: THIAMINE HCL 100 MG TABLET (FP) PO SCH (21:28)
[2017-10-08] MEDS: IBUPROFEN 400 MG TABLET (FP) PO PRN (21:29)
[2017-10-09] MEDS: busPIRone HCL 5 MG TABLET PO SCH (06:11)
[2017-10-09 07:18] VITALS: BP 144/90; PULSE 96; TEMP 97.5
--- NOTE | 2017-10-09 09:30 | PN ---
Psychiatric Progress Note Vital Signs: Vital Signs Period Temp Pulse Resp BP Sys/[place] Pulse Ox Last 24 Hr 97.5 F 96-97 - 144-148/89-90 Date of Session: 10/09/17 Chief Complaint:: discharge visit HPI: Patient has addressed alcohol, nicotine dependence comorbid PTSD and MDD. ROS: migraine headaches, COPD, sickle cell trait, GERD,hypertension, arthritis both knees medically managed Current Medications: Active Medications Generic Name Dose Route Start Last Admin Trade Name Freq PRN Reason Stop Dose Admin Acetaminophen 650 mg 09/26/17 18:07 10/06/17 15:19 Tylenol - PO 650 mg Q4H PRN Administration FEVER Al Hydroxide/Mg Hydroxide 30 ml 09/26/17 18:07 Mylanta Oral Suspension - PO Q6H PRN DYSPEPSIA Albuterol Sulfate 2 puff 09/26/17 18:08 Ventolin Hfa Inhaler - IH Q4H PRN ASTHMA Amlodipine Besylate 5 mg 09/27/17 10:00 10/08/17 10:23 Norvasc - PO 5 mg DAILY JONATHAN Administration Buspirone HCl 5 mg 09/29/17 14:00 10/09/17 06:11 Buspar - PO 5 mg TID JONATHAN Administration Eucalyptus/Menthol/Phenol/Sorbitol 1 each 09/26/17 18:07 Cepastat Lozenge - MM Q4H PRN SORE THROAT Guaifenesin 10 ml 10/02/17 13:01 10/08/17 10:24 Robitussin Dm - PO 10 ml Q6H PRN Administration COUGH Hydroxyzine Pamoate 50 mg 09/26/17 18:07 Vistaril - PO Q4H PRN AGITATION Ibuprofen 400 mg 09/26/17 18:07 10/08/17 21:29 Motrin - PO 400 mg Q6H PRN Administration Pain level 4-6 Labetalol HCl 200 mg 09/27/17 10:00 10/08/17 10:23 Normodyne - PO 200 mg DAILY JONATHAN Administration Lisinopril 10 mg 09/27/17 10:00 10/08/17 10:23 Prinivil PO 10 mg DAILY JONATHAN Administration Loperamide HCl 4 mg 09/26/17 18:07 09/28/17 21:26 Imodium - PO 4 mg Q6H PRN Administration DIARRHEA Magnesium Citrate 300 ml 09/26/17 18:07 Citroma - PO Q48H PRN CONSTIPATION Magnesium Hydroxide 30 ml 09/26/17 18:07 Milk Of Magnesia - PO DAILY PRN CONSTIPATION Nicotine 14 mg 09/27/17 10:00 10/08/17 10:23 Nicoderm Patch - TD 14 mg DAILY JONATHAN Administration Ondansetron HCl 8 mg 09/30/17 10:35 Zofran Odt - SL Q8H PRN NAUSEA Pantoprazole Sodium 40 mg 09/27/17 10:00 10/08/17 10:23 Protonix - PO 40 mg DAILY JONATHAN Administration Multivit/Folic Acid/Iron 1 tab 09/27/17 10:00 10/08/17 10:22 Vitamins (Sjr) - PO 1 tab DAILY JONATHAN Administration Pseudoephedrine/Triprolidine 1 combo 09/26/17 18:07 Actifed - PO TID PRN NASAL CONGESTION Quetiapine Fumarate 200 mg 09/29/17 22:00 10/08/17 21:28 Seroquel - PO 200 mg HS JONATHAN Administration Thiamine HCl 100 mg 09/26/17 22:00 10/08/17 21:28 Vitamin B1 - PO 100 mg HS JONATHAN Administration Trazodone HCl 100 mg 09/26/17 22:00 10/08/17 21:28 Desyrel - PO 100 mg HS JONATHAN Administration Vitamin A/Vitamin D 1 applic 10/03/17 10:00 10/08/17 21:29 Vitamin A & D Top Oint - TP Not Given BID JONATHAN Current Side Effect: No Lab tests ordered: No Lab tests reviewed: Yes Provider note:: Patient has completed treatment today and met his identified goals, will continue to address his issues at [facility] opd. He gained insights into his addiction and motivated to continue maintain abstinence and stay away from "people, places and things". Trazodone and Seroquel well tolerated, srcipts provided for 30 days. Patient was encouraged to utilize all supports available to prevent relapses. He is stable for discharge today. Total face to face time:: 15 Mental Status Exam - Mental Status Exam Alert and Oriented to: Time, Place, Person Cognitive Function: Good Patient Appearance: Well Groomed Mood: Hopeful Affect: Appropriate, Mood Congruent Patient Behavior: Appropriate, Cooperative Speech Pattern: Clear, Appropriate Voice Loudness: Normal Thought Process: Intact, Goal Oriented Thought Disorder: Not Present Hallucinations: Denies Suicidal Ideation: Denies Homicidal Ideation: Denies Insight/Judgement: Fair Sleep: Fair Appetite: Fair Muscle strength/Tone: Normal Gait/Station: Normal Psychiatric Treatment Plan - Problem List (1) PTSD (post-traumatic stress disorder) Current Visit: Yes (2) Alcohol dependence Current Visit: Yes (3) COPD (chronic obstructive pulmonary disease) Current Visit: Yes Qualifiers: COPD type: emphysema (4) GERD (gastroesophageal reflux disease) Current Visit: Yes Qualifiers: Esophagitis presence: without esophagitis Qualified Code(s): K21.9 - Gastro -esophageal reflux disease without esophagitis (5) HTN (hypertension) Current Visit: Yes Qualifiers: Hypertension type: essential hypertension Qualified Code(s): I10 - Essential (primary) hypertension (6) Nicotine dependence Current Visit: Yes Qualifiers: Nicotine product type: cigarettes Substance use status: in withdrawal Qualified Code(s): F17.213 - Nicotine dependence, cigarettes, with withdrawal (7) MDD (major depressive disorder), recurrent episode, moderate Current Visit: No
[2017-10-09] MEDS: amLODIPine BESYLATE 5 MG TABLET (FP) PO SCH (09:53)
[2017-10-09] MEDS: PRENATAL VITAMINS W/ FOLIC ACID TABLET (FP) PO SCH (09:53)
[2017-10-09] MEDS: PANTOPRAZOLE 40 MG TABLET (FP) PO SCH (09:53)
[2017-10-09] MEDS: LISINOPRIL 10 MG TABLET (FP) PO SCH (09:53)
[2017-10-09] MEDS: LABETALOL HCL 200 MG TABLET (FP) PO SCH (09:53)
[2017-10-09] MEDS: NICOTINE 14 MG/24 HOURS TOPICAL PATCH TD SCH (09:54)
[2017-10-09] MEDS: VITAMINS A AND D TOPICAL OINTMENT 60 GM TUBE TP SCH (09:55)
== END 2017-10-09 11:00 | disposition home or self-care (01) | DRG 772 ==
LOC: YASAS 13:09 → Y3N 18:05 → Y5N 18:21
PROVIDERS: ADMIT Internal Medicine; ATTEND Psychiatry & Neurology Psychiatry
PROC: HZ42ZZZ Group Counseling for Substance Abuse Treatment, Cognitive-Behavioral (ICD-10-PCS; principal; 2017-09-26)
DX: F10.20 Alcohol dependence, uncomplicated (principal); F17.213 Nicotine dependence, cigarettes, with withdrawal; F33.1 Major depressive disorder, recurrent, moderate; F43.10 Post-traumatic stress disorder, unspecified; I10 Essential (primary) hypertension; J43.8 Other emphysema; K21.9 Gastro-esophageal reflux disease without esophagitis; D57.3 Sickle-cell trait; Z59.0 Homelessness; G43.909 Migraine, unspecified, not intractable, without status migrainosus
CPT/HCPCS: 36415; 80053; 81003; 85027; 86593; 87389; 93005; 93010

== ENCOUNTER 2018-04-21 16:59 | Inpatient (IN) | payer OTHER ==
[2018-04-21 17:23] VITALS: BMI 34.5
--- NOTE | 2018-04-21 20:44 | HP ---
CIWA Score Nausea/Vomitin (vomiting x 6) Muscle Tremors: 3 Anxiety: 3 Agitation: 3 Paroxysmal Sweats: 1-Minimal Palms Moist Orientation: 0-Oriented Tacttile Disturbances: 0-None Auditory Disturbances: 0-None Visual Disturbances: 0-None Headache: 2-Mild CIWA-Ar Total Score: 15 - Admission Criteria OASAS Guidelines: Admission for Medically Managed Detox: Requires at least one of the followin. CIWA greater than 12 2. Seizures within the past 24 hours 3. Delirium tremens within the past 24 hours 4. Hallucinations within the past 24 hours 5. Acute intervention needed for co occurring medical disorder 6. Acute intervention needed for co occurring psychiatric disorder 7. Severe withdrawal that cannot be handled at a lower level of care (continued vomiting, continued diarrhea, abnormal vital signs) requiring intravenous medication and/or fluids 8. Admission ROS [facility] Chief Complaint: Alcohol withdrawal symptoms Allergies/Adverse Reactions: Allergies Allergy/AdvReac Type Severity Reaction Status Date / Time No Known Allergies Allergy Verified 04/21/18 17:22 History of Present Illness: 43 years old male with a long history of alcohol dependence is seeking admission to detox. Patient has been in previous detox and reports 12 years of sobriety. He has medical history of COPD, bronchitis, HTN, GERD, Seizures, DM type 2, sleep apnea, Depression and anxiety. He denies suicide attempt and suicidal ideation at this time. Exam Limitations: No Limitations - Ebola screening Have you traveled outside of the country in the last 21 days: No (N) Have you had contact with anyone from an Ebola affected area: No Have you been sick,other than usual withdrawal symptoms: No Do you have a fever: No - Review of Systems Constitutional: Chills, Malaise, Night Sweats, Weakness EENT: reports: No Symptoms Reported Respiratory: reports: Productive cough Cardiac: reports: No Symptoms Reported GI: reports: Poor Appetite, Poor Fluid Intake, Vomiting (x 6), Abdominal cramping : reports: No Symptoms Reported Musculoskeletal: reports: No Symptoms Reported Integumentary: reports: Dryness Neuro: reports: Headache, Tremors Endocrine: reports: No Symptoms Reported Hematology: reports: No Symptoms Reported Psychiatric: reports: Anxious, Depressed Other Systems: Reviewed and Negative Patient History - Patient Medical History Hx Anemia: No Hx Asthma: No Hx Chronic Obstructive Pulmonary Disease (COPD): Yes (ALBUTEROL) Hx Cancer: No Hx Cardiac Disorders: No Hx Congestive Heart Failure: No Hx Hypertension: Yes (AMLOPDIPINE,LISINOPRIL, LABETOLOL) Hx Hypercholesterolemia: No Hx Pacemaker: No HX Cerebrovascular Accident: No Hx Seizures: Yes (Unconfirmed; states he may have had a sz but not sure.) Hx Dementia: No Hx Diabetes: Yes (NOT ON MEDICATION) Hx Gastrointestinal Disorders: Yes (GERD - OMEPRAZOLE) Hx Liver Disease: No Hx Genitourinary Disorders: No Hx Sexually Transmitted Disorders: No Hx Renal Disease (ESRD): No Hx Thyroid Disease: No Hx Human Immunodeficiency Virus (HIV): No Hx Hepatitis C: No Hx Depression: Yes (+ ANXIETY, ON SEROQUEL AND TRAZODNE) Hx Suicide Attempt: No Hx Bipolar Disorder: No Hx Schizophrenia: No Other Medical History: SLEEP APNEA, BRONCHITIS - NOT ON MEDICAION - Patient Surgical History Past Surgical History: No Hx Neurologic Surgery: No Hx Cataract Extraction: No Hx Cardiac Surgery: No Hx Lung Surgery: No Hx Breast Surgery: No Hx Breast Biopsy: No Hx Abdominal Surgery: No Hx Appendectomy: No Hx Cholecystectomy: No Hx Genitourinary Surgery: No Hx Section: No Hx Orthopedic Surgery: No Anesthesia Reaction: No - PPD History Previous Implant?: Yes Date: 05/24/17 Results: 0 mm - Reproductive History Patient is a Female of Child Bearing Age (11 -55 yrs old): No (Male) - Smoking Cessation Smoking history: Current every day smoker Have you smoked in the past 12 months: Yes Aproximately how many cigarettes per day: 20 Cigars Per Day: 0 Hx Chewing Tobacco Use: No Initiated information on smoking cessation: Yes 'Breaking Loose' booklet given: 04/21/18 - Substance & Tx. History Hx Alcohol Use: Yes Hx Substance Use: No Substance Use Type: Alcohol Hx Substance Use Treatment: Yes ([facility]) - Substances Abused Alcohol Route: Oral Frequency: Daily Amount used: BEER- 1 CASE Age of first use: 9 Date of Last Use: 04/21/18 Family Disease History - Family Disease History Family Disease History: Diabetes: Grandparent (Stomach), Heart Disease: Mother ( HTN,Lung/), CA: Grandparent, Father (Prostate,Alcoholic/), Mother, Brother (), Other: Father, Mother, Brother, Sister () Admission Physical Exam [facility] - Vital Signs Vital Signs: Vital Signs - 24 hr 04/21/18 17:21 Temperature 97 F L Pulse Rate 103 H Respiratory 18 Rate Blood Pressure 135/90 - Physical General Appearance: Yes: Moderate Distress, Tremorous, Irritable, Sweating, Anxious HEENTM: Yes: EOMI, Normal ENT Inspection, Normocephalic, Normal Voice, SAL Respiratory: Yes: Lungs Clear, Normal Breath Sounds, No Respiratory Distress Neck: Yes: Supple Breast: Yes: Breast Exam Deferred Cardiology: Yes: Tachycardia Abdominal: Yes: Normal Bowel Sounds, Soft Genitourinary: Yes: Within Normal Limits Back: Yes: Normal Inspection Musculoskeletal: Yes: Within Normal Limits Extremities: Yes: Tremors Neurological: Yes: Alert, Normal Mood/Affect Integumentary: Yes: Dry Lymphatic: Yes: Within Normal Limits - Diagnostic (1) Alcohol dependence with uncomplicated withdrawal Current Visit: No Status: Chronic (2) COPD (chronic obstructive pulmonary disease) Current Visit: No Status: Chronic Qualifiers: COPD type: emphysema (3) GERD (gastroesophageal reflux disease) Current Visit: No Status: Chronic Qualifiers: Esophagitis presence: without esophagitis Qualified Code(s): K21.9 - Gastro -esophageal reflux disease without esophagitis (4) HTN (hypertension) Current Visit: No Status: Chronic Qualifiers: Hypertension type: essential hypertension Qualified Code(s): I10 - Essential (primary) hypertension (5) Nicotine dependence Current Visit: No Status: Chronic Qualifiers: Nicotine product type: cigarettes Substance use status: in withdrawal Qualified Code(s): F17.213 - Nicotine dependence, cigarettes, with withdrawal (6) Depression (emotion) Current Visit: No Status: Suspected Qualifiers: Depression Type: dysthymia Qualified Code(s): F34.1 - Dysthymic disorder (7) DM type 2 (diabetes mellitus, type 2) Current Visit: Yes Status: Chronic Qualifiers: Diabetes mellitus complication status: without complication (8) Sleep apnea Current Visit: Yes Status: Chronic Qualifiers: Sleep apnea type: obstructive Qualified Code(s): G47.33 - Obstructive sleep apnea (adult) (pediatric) (9) Bronchitis Current Visit: Yes Status: Chronic (10) Seizures Current Visit: Yes Status: Chronic Cleared for Admission [facility] - Detox or Rehab [facility] Level of Care: Medically Managed Detox Regimen/Protocol: Librium [facility] Breath Alcohol Content Breath Alcohol Content: 0.159 Urine Drug Screen - Results Drug Screen Negative: No Urine Drug Screen Results: BZO-Benzodiazepines
[2018-04-21] MEDS ORDERED: MENTHOL/PHENOL 1 EACH UD MM PRN (21:01)
[2018-04-21] MEDS ORDERED: NICOTINE POLACRILEX 2 MG GUM BC PRN (21:01)
[2018-04-21] MEDS ORDERED: chlordiazePOXIDE HCL 25 MG CAPSULE PO PRN (21:01)
[2018-04-21] MEDS ORDERED: guaiFENesin/D-METHORPHAN HB 10 ML UNIT-DOSE CUPS PO PRN (21:01)
[2018-04-21] MEDS ORDERED: MAGNESIUM HYDROX 2400MG/30ML ORAL SUSPENSION 30 ML CUP PO PRN (21:01)
[2018-04-21] MEDS ORDERED: MAG HYDROX/AL HYDROX/SIMETH 30 ML UNIT-DOSE CUP PO PRN (21:01)
[2018-04-21] MEDS ORDERED: MAGNESIUM CITRATE 300 ML BOTTLE PO PRN (21:01)
[2018-04-21] MEDS ORDERED: IBUPROFEN 400 MG TABLET (FP) PO PRN (21:01)
[2018-04-21] MEDS ORDERED: P-EPHED 60MG/TRIPROLIDI 2.5MG TABLET PO PRN (21:01)
[2018-04-21] MEDS ORDERED: ACETAMINOPHEN 325 MG TABLET (FP) PO PRN (21:01)
[2018-04-21] MEDS ORDERED: LOPERAMIDE HCL 2 MG CAPSULE PO PRN (21:01)
[2018-04-21] MEDS ORDERED: ALBUTEROL SO4 8 GM HFA INHALER IH PRN (21:03)
[2018-04-21] MEDS ORDERED: MELATONIN 5 MG TABLETS PO PRN (22:00)
[2018-04-21] MEDS: chlordiazePOXIDE HCL 25 MG CAPSULE PO SCH (22:26)
[2018-04-21] MEDS: THIAMINE HCL 100 MG TABLET (FP) PO SCH (22:27)
[2018-04-22 00:40] LABS: URINE APPEARANCE CLEAR; URINE BILIRUBIN NEGATIVE (<2.0 mg/dL); URINE COLOR LTYELLOW; URINE GLUCOSE (UA) NEGATIVE (NEGATIVE); URINE KETONE NEGATIVE (NEGATIVE); URINE LEUK ESTERASE NEGATIVE (NEGATIVE); URINE NITRITE NEGATIVE (NEGATIVE); URINE PROTEIN NEGATIVE (NEGATIVE); URINE UROBILINOGEN NEGATIVE mg/dL (0.2-1.0)
[2018-04-22] MEDS: chlordiazePOXIDE HCL 25 MG CAPSULE PO SCH ×4 (05:53→22:18)
--- NOTE | 2018-04-22 07:42 | CONSULT ---
[facility] Psychiatric Consult - Data Date of interview: 04/22/18 Admission source: [facility] Identifying data: This is a 43 years old male, single, unemployed, living with family, with no psychiatric hospitalization history, history of MDD and PTSD, is reporting withdrawal symptoms and seeking detox. Patient reports chronic Alcohol and Nicotine dependence history. years old male with a long history of alcohol dependence is seeking admission to detox. Patient has been in previous detox and reports 12 years of sobriety. He has medical history of COPD, bronchitis, HTN, GERD, Seizures, DM type 2, sleep apnea, Depression and anxiety. He denies suicide attempt and suicidal ideation at this time. Substance Abuse History: Smoking history: Current every day smoker. Have you smoked in the past 12 months: Yes. Aproximately how many cigarettes per day: 20. Cigars Per Day: 0. Hx Chewing Tobacco Use: No. Initiated information on smoking cessation: Yes. 'Breaking Loose' booklet given: 04/21/18. - Substance & Tx. History. Hx Alcohol Use: Yes. Hx Substance Use: No. Substance Use Type : Alcohol. Hx Substance Use Treatment: Yes ([facility]). - Substances Abused. Alcohol. Route: Oral. Frequency: Daily. Amount used: BEER- 1 CASE. Age of first use: 9. Date of Last Use: 04/21/18 Medical History: Patient reports medical history of COPD, HTN, GERD, Seizures, DM type 2, sleep apnea, Psychiatric History: Patient reports history of MDD, PTSD, denies spcyhiatric hospitalization history, denies suicidal and homicidal history as well. Reports currently stable on: Seroquel 100mg poqhs. Trazodone 100mg po qhs Physical/Sexual Abuse/Trauma History: Denies Additional Comment: Seroquel 100mg poqhs. Trazodone 100mg po qhs Mental Status Exam - Mental Status Exam Alert and Oriented to: Place, Person Cognitive Function: Fair Patient Appearance: Unkempt Mood: Sad Affect: Flat Patient Behavior: Sedated Speech Pattern: Delayed Voice Loudness: Mildly Soft/Quiet Thought Process: Circumstantial, Goal Oriented Thought Disorder: Being Controlled Hallucinations: Denies Suicidal Ideation: Denies Homicidal Ideation: Denies Insight/Judgement: Fair Sleep: Difficulty falling asleep Appetite: Fair Muscle strength/Tone: Mild Hypotonicity Gait/Station: Shuffling Additional Comments: Seroquel 100mg poqhs. Trazodone 100mg po qhs Psychiatric Findings - Problem List ([place] 1, 2,3) (1) Bronchitis Current Visit: Yes Status: Chronic (2) DM type 2 (diabetes mellitus, type 2) Current Visit: Yes Status: Chronic Qualifiers: Diabetes mellitus complication status: without complication (3) Seizures Current Visit: Yes Status: Chronic (4) Sleep apnea Current Visit: Yes Status: Chronic Qualifiers: Sleep apnea type: obstructive Qualified Code(s): G47.33 - Obstructive sleep apnea (adult) (pediatric) (5) Alcohol dependence Current Visit: No Status: Acute (6) Alcohol-induced mood disorder Current Visit: No Status: Acute (7) Alcohol-induced sleep disorder Current Visit: No Status: Acute (8) Insomnia Current Visit: No Status: Acute Qualifiers: Insomnia type: alcohol-induced Qualified Code(s): F10.982 - Alcohol use, unspecified with alcohol-induced sleep disorder (9) PTSD (post-traumatic stress disorder) Current Visit: No Status: Acute (10) Substance induced mood disorder Current Visit: No Status: Acute (11) Alcohol dependence with uncomplicated withdrawal Current Visit: No Status: Chronic (12) COPD (chronic obstructive pulmonary disease) Current Visit: No Status: Chronic Qualifiers: COPD type: emphysema (13) Dry skin dermatitis Current Visit: No Status: Chronic (14) GERD (gastroesophageal reflux disease) Current Visit: No Status: Chronic Qualifiers: Esophagitis presence: without esophagitis Qualified Code(s): K21.9 - Gastro -esophageal reflux disease without esophagitis (15) HTN (hypertension) Current Visit: No Status: Chronic Qualifiers: Hypertension type: essential hypertension Qualified Code(s): I10 - Essential (primary) hypertension (16) MDD (major depressive disorder), recurrent episode, moderate Current Visit: No Status: Chronic - Initial Treatment Plan Initial Treatment Plan: Seroquel 100mg po qhs. Trazodone 100mg poqd
[2018-04-22] MEDS ORDERED: LABETALOL HCL 100 MG TABLET (FP) PO SCH (10:00)
[2018-04-22] MEDS: NICOTINE 14 MG/24 HOURS TOPICAL PATCH TD SCH (10:05)
[2018-04-22] MEDS: LABETALOL HCL 100 MG TABLET (FP) PO SCH ×2 (10:05→22:18)
[2018-04-22] MEDS: PRENATAL VITAMINS W/ FOLIC ACID TABLET (FP) PO SCH (10:05)
[2018-04-22] MEDS: amLODIPine BESYLATE 5 MG TABLET (FP) PO SCH (10:06)
[2018-04-22] MEDS: PANTOPRAZOLE 40 MG TABLET (FP) PO SCH (10:06)
[2018-04-22] MEDS: LISINOPRIL 10 MG TABLET (FP) PO SCH (10:06)
[2018-04-22 10:40] LABS: HEMATOCRIT 39.4 % (35.4-49); HEMOGLOBIN 12.1 GM/dL (11.7-16.9); MCHC 30.7 g/dl (32.0-35.9); MEAN PLT VOLUME 8.4 fl (7.5-11.1); PLATELET COUNT 199 K/MM3 (134-434); RBC 5.05 M/mm3 (4.00-5.60); RDW 16.9 % (11.9-15.9); WHITE BLOOD COUNT 5.2 K/mm3 (4.0-10.0)
--- NOTE | 2018-04-22 10:43 | PN ---
S CIWA - CIWA Score Nausea/Vomitin-Mild Nausea/No Vomiting Muscle Tremors: 3 Anxiety: 2 Agitation: 1-Slight > Activity Paroxysmal Sweats: 1-Minimal Palms Moist Orientation: 1-Uncertain about Date Tacttile Disturbances: 1-Very Mild Itch/Numbness Auditory Disturbances: 1-Very Mild Visual Disturbances: 0-None Headache: 1-Very Mild CIWA-Ar Total Score: 12 BHS Progress Note (SOAP) Subjective: sweat tremor restlessness low energy no interesting in unit activities Objective: 04/22/18 10:41 Vital Signs Temperature 99.7 F H 04/22/18 09:49 Pulse Rate 89 04/22/18 09:49 Respiratory Rate 20 04/22/18 09:49 Blood Pressure 132/72 04/22/18 09:49 O2 Sat by Pulse Oximetry (%) Laboratory Last Values Urine Color Ltyellow 04/21/18 23:26 Urine Appearance Clear 04/21/18 23:26 Urine pH 6.0 (5.0-8.0) 04/21/18 23:26 Ur Specific [place] 1.006 (1.010-1.035) L 04/21/18 23:26 Urine Protein Negative (NEGATIVE) 04/21/18 23:26 Urine Glucose (UA) Negative (NEGATIVE) 04/21/18 23:26 Urine Ketones Negative (NEGATIVE) 04/21/18 23:26 Urine Blood Negative (NEGATIVE) 04/21/18 23:26 Urine Nitrite Negative (NEGATIVE) 04/21/18 23:26 Urine Bilirubin Negative (<2.0 mg/dL) 04/21/18 23:26 Urine Urobilinogen Negative mg/dL (0.2-1.0) 04/21/18 23:26 Ur Leukocyte Esterase Negative (NEGATIVE) 04/21/18 23:26 lab noted Assessment: 04/22/18 10:43 withdrawal sx Plan: continue detox
[2018-04-22 11:32] LABS: ALK PHOS 46 U/L (45-117); ANION GAP 9 MMOL/L (8-16); BILIRUBIN,TOTAL 0.2 mg/dL (0.2-1); BLOOD UREA NITROGEN 6 mg/dL (7-18); CALCIUM 8.2 mg/dL (8.5-10.1); CHLORIDE 105 mmol/L (98-107); CO2 28 mmol/L (21-32); CREATININE 0.8 mg/dL (0.55-1.3); GLUCOSE,RANDOM 88 mg/dL (74-106); POTASSIUM 3.3 mmol/L (3.5-5.1); SGOT/AST 22 U/L (15-37); SGPT/ALT 26 U/L (13-61); SODIUM 141 mmol/L (136-145); TOT PROT 6.4 g/dl (6.4-8.2)
[2018-04-22] MEDS: traZODone HCL 100 MG TABLET (FP) PO SCH (22:18)
[2018-04-22] MEDS: QUEtiapine FUMARATE 100 MG TABLET (FP) PO SCH (22:18)
[2018-04-22] MEDS: THIAMINE HCL 100 MG TABLET (FP) PO SCH (22:18)
[2018-04-23] MEDS: chlordiazePOXIDE HCL 25 MG CAPSULE PO SCH ×3 (05:24→17:13)
[2018-04-23] MEDS: amLODIPine BESYLATE 5 MG TABLET (FP) PO SCH (10:25)
[2018-04-23] MEDS: LISINOPRIL 10 MG TABLET (FP) PO SCH (10:25)
[2018-04-23] MEDS: PANTOPRAZOLE 40 MG TABLET (FP) PO SCH (10:25)
[2018-04-23] MEDS: PRENATAL VITAMINS W/ FOLIC ACID TABLET (FP) PO SCH (10:25)
[2018-04-23] MEDS: NICOTINE 14 MG/24 HOURS TOPICAL PATCH TD SCH (10:26)
[2018-04-23] MEDS: LABETALOL HCL 100 MG TABLET (FP) PO SCH ×2 (10:26→22:31)
--- NOTE | 2018-04-23 14:06 | PN ---
[facility] CIWA - CIWA Score Nausea/Vomitin-No Nausea/No Vomiting Muscle Tremors: 3 Anxiety: 2 Agitation: 2 Paroxysmal Sweats: 1-Minimal Palms Moist Orientation: 0-Oriented Tacttile Disturbances: 1-Very Mild Itch/Numbness Auditory Disturbances: 0-None Visual Disturbances: 0-None Headache: 1-Very Mild CIWA-Ar Total Score: 10 S Progress Note (SOAP) Subjective: tremor sweat gi distress anxiety trouble sleep at night Objective: 04/23/18 14:07 Vital Signs Temperature 99.5 F 04/23/18 13:41 Pulse Rate 98 H 04/23/18 13:41 Respiratory Rate 18 04/23/18 13:41 Blood Pressure 148/85 04/23/18 13:41 O2 Sat by Pulse Oximetry (%) Laboratory Last Values WBC 5.2 K/mm3 (4.0-10.0) 04/22/18 07:30 RBC 5.05 M/mm3 (4.00-5.60) 04/22/18 07:30 Hgb 12.1 GM/dL (11.7-16.9) 04/22/18 07:30 Hct 39.4 % (35.4-49) 04/22/18 07:30 MCV 78.0 fl (80-96) L 04/22/18 07:30 MCH 24.0 pg (25.7-33.7) L 04/22/18 07:30 MCHC 30.7 g/dl (32.0-35.9) L 04/22/18 07:30 RDW 16.9 % (11.9-15.9) H 04/22/18 07:30 Plt Count 199 K/MM3 (134-434) D 04/22/18 07:30 MPV 8.4 fl (7.5-11.1) 04/22/18 07:30 Sodium 141 mmol/L (136-145) 04/22/18 07:30 Potassium 3.3 mmol/L (3.5-5.1) L 04/22/18 07:30 Chloride 105 mmol/L (98-107) 04/22/18 07:30 Carbon Dioxide 28 mmol/L (21-32) 04/22/18 07:30 Anion Gap 9 MMOL/L (8-16) 04/22/18 07:30 BUN 6 mg/dL (7-18) L 04/22/18 07:30 Creatinine 0.8 mg/dL (0.55-1.3) 04/22/18 07:30 Creat Clearance w eGFR > 60 (>60) 04/22/18 07:30 Random Glucose 88 mg/dL (74-106) 04/22/18 07:30 Calcium 8.2 mg/dL (8.5-10.1) L 04/22/18 07:30 Total Bilirubin 0.2 mg/dL (0.2-1) 04/22/18 07:30 AST 22 U/L (15-37) 04/22/18 07:30 ALT 26 U/L (13-61) 04/22/18 07:30 Alkaline Phosphatase 46 U/L (45-117) 04/22/18 07:30 Total Protein 6.4 g/dl (6.4-8.2) 04/22/18 07:30 Albumin 3.0 g/dl (3.4-5.0) L 04/22/18 07:30 Urine Color Ltyellow 04/21/18 23:26 Urine Appearance Clear 04/21/18 23:26 Urine pH 6.0 (5.0-8.0) 04/21/18 23:26 Ur Specific [place] 1.006 (1.010-1.035) L 04/21/18 23:26 Urine Protein Negative (NEGATIVE) 04/21/18 23:26 Urine Glucose (UA) Negative (NEGATIVE) 04/21/18 23:26 Urine Ketones Negative (NEGATIVE) 04/21/18 23:26 Urine Blood Negative (NEGATIVE) 04/21/18 23:26 Urine Nitrite Negative (NEGATIVE) 04/21/18 23:26 Urine Bilirubin Negative (<2.0 mg/dL) 04/21/18 23:26 Urine Urobilinogen Negative mg/dL (0.2-1.0) 04/21/18 23:26 Ur Leukocyte Esterase Negative (NEGATIVE) 04/21/18 23:26 RPR Titer Nonreactive (NONREACTIVE) 04/22/18 07:30 HIV 1&2 Antibody Screen Negative 04/22/18 07:30 HIV P24 Antigen Negative 04/22/18 07:30 lab noted Assessment: 04/23/18 14:09 withdrawal sx low potassium Plan: continue detox K+ supplement stars now
[2018-04-23] MEDS: POTASSIUM CHLORIDE TABS 20 MEQ TABLET.ER (FP) PO SCH ×2 (14:33→22:32)
[2018-04-23] MEDS: THIAMINE HCL 100 MG TABLET (FP) PO SCH (22:31)
[2018-04-23] MEDS: chlordiazePOXIDE 5 MG CAPSULE PO SCH (22:31)
[2018-04-23] MEDS: QUEtiapine FUMARATE 100 MG TABLET (FP) PO SCH (22:32)
[2018-04-23] MEDS: traZODone HCL 100 MG TABLET (FP) PO SCH (22:32)
[2018-04-24] MEDS: chlordiazePOXIDE 5 MG CAPSULE PO SCH (05:38)
--- NOTE | 2018-04-24 08:45 | PN ---
S Progress Note Note: pt didn't want to stay to complete detox; he said he wants to go home.
--- NOTE | 2018-04-24 08:53 | DS ---
[facility] Detox Discharge Summary Admission Date: 04/21/18 - History Present History: Alcohol Dependence - Physical Exam Results Vital Signs: Vital Signs Temperature 98.6 F 04/24/18 06:00 Pulse Rate 77 04/24/18 06:00 Respiratory Rate 20 04/24/18 06:00 Blood Pressure 111/70 04/24/18 06:00 O2 Sat by Pulse Oximetry (%) - Medication Discharge Medications: Ambulatory Orders Pantoprazole Sodium [Protonix -] 40 mg PO DAILY #30 tablet.ec 08/29/17 Albuterol Sulfate Inhaler - [Ventolin HFA Inhaler -] 2 inh PO Q4H PRN #1 inhaler 10/08/17 Amlodipine Besylate [Norvasc -] 5 mg PO DAILY #30 tablet 10/08/17 Labetalol HCl [Normodyne -] 200 mg PO DAILY #30 tablet 10/08/17 Lisinopril 10 mg PO DAILY #30 tablet 10/08/17 Omeprazole 40 mg PO DAILY #30 cap 10/08/17 Quetiapine Fumarate [Seroquel -] 200 mg PO HS #30 tablet 10/09/17 traZODone HCL [Desyrel -] 100 mg PO HS #30 tablet 10/09/17 - Diagnosis (1) Bronchitis Current Visit: Yes Status: Chronic (2) DM type 2 (diabetes mellitus, type 2) Current Visit: Yes Status: Chronic Qualifiers: Diabetes mellitus complication status: without complication (3) Seizures Current Visit: Yes Status: Chronic (4) Sleep apnea Current Visit: Yes Status: Chronic Qualifiers: Sleep apnea type: obstructive Qualified Code(s): G47.33 - Obstructive sleep apnea (adult) (pediatric) (5) Alcohol-induced mood disorder Current Visit: No Status: Acute (6) Alcohol-induced sleep disorder Current Visit: No Status: Acute (7) Insomnia Current Visit: No Status: Acute Qualifiers: Insomnia type: alcohol-induced Qualified Code(s): F10.982 - Alcohol use, unspecified with alcohol-induced sleep disorder (8) PTSD (post-traumatic stress disorder) Current Visit: No Status: Acute (9) Substance induced mood disorder Current Visit: No Status: Acute (10) Alcohol dependence with uncomplicated withdrawal Current Visit: Yes Status: Chronic (11) COPD (chronic obstructive pulmonary disease) Current Visit: No Status: Chronic Qualifiers: COPD type: emphysema (12) Dry skin dermatitis Current Visit: No Status: Chronic (13) GERD (gastroesophageal reflux disease) Current Visit: No Status: Chronic Qualifiers: Esophagitis presence: without esophagitis Qualified Code(s): K21.9 - Gastro -esophageal reflux disease without esophagitis (14) HTN (hypertension) Current Visit: Yes Status: Chronic Qualifiers: Hypertension type: essential hypertension Qualified Code(s): I10 - Essential (primary) hypertension (15) MDD (major depressive disorder), recurrent episode, moderate Current Visit: No Status: Chronic (16) Nicotine dependence Current Visit: Yes Status: Chronic Qualifiers: Nicotine product type: cigarettes Substance use status: uncomplicated Qualified Code(s): F17.210 - Nicotine dependence, cigarettes, uncomplicated (17) Depression (emotion) Current Visit: No Status: Suspected Qualifiers: Depression Type: dysthymia Qualified Code(s): F34.1 - Dysthymic disorder - AMA Did Patient Leave Against Medical Advice: Yes (going home)
[2018-04-24 09:17] VITALS: BP 130/82; PULSE 99; TEMP 97.6
[2018-04-24] MEDS: LABETALOL HCL 100 MG TABLET (FP) PO SCH (09:33)
[2018-04-24] MEDS: PANTOPRAZOLE 40 MG TABLET (FP) PO SCH (09:34)
[2018-04-24] MEDS: LISINOPRIL 10 MG TABLET (FP) PO SCH (09:34)
[2018-04-24] MEDS: PRENATAL VITAMINS W/ FOLIC ACID TABLET (FP) PO SCH (09:34)
[2018-04-24] MEDS: amLODIPine BESYLATE 5 MG TABLET (FP) PO SCH (09:34)
[2018-04-24] MEDS: POTASSIUM CHLORIDE TABS 20 MEQ TABLET.ER (FP) PO SCH (09:34)
[2018-04-24] MEDS: NICOTINE 14 MG/24 HOURS TOPICAL PATCH TD SCH (09:35)
[2018-04-24] MEDS ORDERED: chlordiazePOXIDE HCL 10 MG CAPSULE PO SCH (23:00)
== END 2018-04-24 09:35 | disposition left against medical advice (07) | DRG 770 ==
LOC: YASAS 16:59 → Y6N 21:17
PROVIDERS: ADMIT Neuromusculoskeletal Medicine & OMM; ATTEND Neuromusculoskeletal Medicine & OMM
PROC: HZ2ZZZZ Detoxification Services for Substance Abuse Treatment (ICD-10-PCS; principal; 2018-04-21)
DX: F10.230 Alcohol dependence with withdrawal, uncomplicated (principal); F10.24 Alcohol dependence with alcohol-induced mood disorder; F10.282 Alcohol dependence with alcohol-induced sleep disorder; F19.24 Other psychoactive substance dependence with psychoactive substance-induced mood disorder; F33.1 Major depressive disorder, recurrent, moderate; F43.10 Post-traumatic stress disorder, unspecified; F34.1 Dysthymic disorder; I10 Essential (primary) hypertension; E11.9 Type 2 diabetes mellitus without complications; J44.9 Chronic obstructive pulmonary disease, unspecified; K21.9 Gastro-esophageal reflux disease without esophagitis; L85.3 Xerosis cutis; G47.33 Obstructive sleep apnea (adult) (pediatric); R56.9 Unspecified convulsions
CPT/HCPCS: 36415; 80053; 81003; 84132; 85027; 86593; 87389

== ENCOUNTER 2018-07-16 11:10 | Inpatient (IN) | payer OTHER ==
[2018-07-16 12:00] VITALS: BMI 35.6
--- NOTE | 2018-07-16 13:54 | HP ---
CIWA Score Nausea/Vomitin-No Nausea/No Vomiting Muscle Tremors: 4-Moderate,w/Arms Extend Anxiety: 4-Mod. Anxious/Guarded Agitation: 4-Moderately Restless Paroxysmal Sweats: 3 Orientation: 0-Oriented Tacttile Disturbances: 0-None Auditory Disturbances: 0-None Visual Disturbances: 0-None Headache: 0-None Present CIWA-Ar Total Score: 15 - Admission Criteria OASAS Guidelines: Admission for Medically Managed Detox: Requires at least one of the followin. CIWA greater than 12 2. Seizures within the past 24 hours 3. Delirium tremens within the past 24 hours 4. Hallucinations within the past 24 hours 5. Acute intervention needed for co occurring medical disorder 6. Acute intervention needed for co occurring psychiatric disorder 7. Severe withdrawal that cannot be handled at a lower level of care (continued vomiting, continued diarrhea, abnormal vital signs) requiring intravenous medication and/or fluids 8. Admission ROS [facility] - HPI Chief Complaint: I need to stop this mess and get my life back. Allergies/Adverse Reactions: Allergies Allergy/AdvReac Type Severity Reaction Status Date / Time No Known Allergies Allergy Verified 04/21/18 17:22 History of Present Illness: pt is a 43yr old male with a history of alcohol dependence seeking detox for treatment. Exam Limitations: No Limitations - Ebola screening Have you traveled outside of the country in the last 21 days: No Have you had contact with anyone from an Ebola affected area: No Have you been sick,other than usual withdrawal symptoms: No Do you have a fever: No - Review of Systems Constitutional: Chills, Diaphoresis, Night Sweats, Changes in sleep EENT: reports: Tearing Respiratory: reports: Cough Cardiac: reports: No Symptoms Reported GI: reports: Diarrhea, Nausea, Poor Appetite, Poor Fluid Intake, Vomiting, Indigestion : reports: No Symptoms Reported Musculoskeletal: reports: No Symptoms Reported Integumentary: reports: Flushing, Sweating Neuro: reports: Tingling, Tremors Endocrine: reports: Flushing Hematology: reports: No Symptoms Reported Psychiatric: reports: Judgement Intact, Mood/Affect Appropiate, Orientated x3, Agitated, Anxious Other Systems: Reviewed and Negative Patient History - Patient Medical History Hx Anemia: No Hx Asthma: No Hx Chronic Obstructive Pulmonary Disease (COPD): Yes (ALBUTEROL) Hx Cancer: No Hx Cardiac Disorders: No Hx Congestive Heart Failure: No Hx Hypertension: Yes (AMLOPDIPINE,LISINOPRIL, LABETOLOL) Hx Hypercholesterolemia: No Hx Pacemaker: No HX Cerebrovascular Accident: No Hx Seizures: No Hx Dementia: No Hx Diabetes: Yes (boarderline; not on any meds) Hx Gastrointestinal Disorders: Yes (GERD - OMEPRAZOLE) Hx Liver Disease: No Hx Genitourinary Disorders: No Hx Sexually Transmitted Disorders: No Hx Renal Disease (ESRD): No Hx Thyroid Disease: No Hx Human Immunodeficiency Virus (HIV): No Hx Hepatitis C: No Hx Depression: Yes (+ ANXIETY, ON SEROQUEL AND TRAZODNE) Hx Suicide Attempt: No (pt denies) Hx Bipolar Disorder: No Hx Schizophrenia: No Other Medical History: insomnia - Patient Surgical History Past Surgical History: No Hx Neurologic Surgery: No Hx Cataract Extraction: No Hx Cardiac Surgery: No Hx Lung Surgery: No Hx Breast Surgery: No Hx Breast Biopsy: No Hx Abdominal Surgery: No Hx Appendectomy: No Hx Cholecystectomy: No Hx Genitourinary Surgery: No Hx Section: No Hx Orthopedic Surgery: No Anesthesia Reaction: No - PPD History Previous Implant?: Yes Documented Results: Negative w/o proof PPD to be Administered?: Yes - Reproductive History Patient is a Female of Child Bearing Age (11 -55 yrs old): No - Smoking Cessation Smoking history: Current every day smoker Have you smoked in the past 12 months: Yes Aproximately how many cigarettes per day: 20 Cigars Per Day: 0 Hx Chewing Tobacco Use: No Initiated information on smoking cessation: Yes 'Breaking Loose' booklet given: 07/16/18 - Substance & Tx. History Hx Alcohol Use: Yes Hx Substance Use: No Substance Use Type: Alcohol Hx Substance Use Treatment: Yes (last detox [facility] 04/2018) - Substances Abused Alcohol Frequency: Daily Amount used: (4)40oz beer Age of first use: 9 Date of Last Use: 07/16/18 Family Disease History - Family Disease History Family Disease History: Diabetes: Grandparent (Stomach), Heart Disease: Mother ( HTN,Lung/), CA: Grandparent, Father (Prostate,Alcoholic/), Mother, Brother (), Other: Father, Mother, Brother, Sister () Admission Physical Exam BHS - Vital Signs Vital Signs: Vital Signs - 24 hr 07/16/18 11:52 Temperature 97.5 F L Pulse Rate 103 H Respiratory 20 Rate Blood Pressure 136/78 - Physical General Appearance: Yes: Appropriately Dressed, Moderate Distress, Obese, Tremorous, Irritable, Sweating, Anxious HEENTM: Yes: Normal Voice, Rhinorrhea Respiratory: Yes: Lungs Clear, Normal Breath Sounds, No Respiratory Distress Neck: Yes: No masses,lesions,Nodules Breast: Yes: Within Normal Limits Cardiology: Yes: Regular Rhythm, Regular Rate, S1, S2, Tachycardia Abdominal: Yes: Normal Bowel Sounds, Non Tender, Soft Genitourinary: Yes: Within Normal Limits Back: Yes: Normal Inspection Musculoskeletal: Yes: full range of Motion Extremities: Yes: Normal Capillary Refill, Normal Inspection, Tremors Neurological: Yes: Fully Oriented, Alert, Normal Response Integumentary: Yes: Normal Color, Diaphoresis Lymphatic: Yes: Within Normal Limits - Diagnostic (1) Insomnia Current Visit: Yes Status: Chronic Qualifiers: Insomnia type: alcohol-induced Qualified Code(s): F10.982 - Alcohol use, unspecified with alcohol-induced sleep disorder (2) Alcohol dependence with uncomplicated withdrawal Current Visit: Yes Status: Chronic (3) COPD (chronic obstructive pulmonary disease) Current Visit: Yes Status: Chronic Qualifiers: COPD type: emphysema Emphysema type: unspecified Qualified Code(s): J43.9 - Emphysema, unspecified (4) Dry skin dermatitis Current Visit: No Status: Chronic (5) GERD (gastroesophageal reflux disease) Current Visit: Yes Status: Chronic Qualifiers: Esophagitis presence: without esophagitis Qualified Code(s): K21.9 - Gastro -esophageal reflux disease without esophagitis (6) HTN (hypertension) Current Visit: Yes Status: Chronic Qualifiers: Hypertension type: essential hypertension Qualified Code(s): I10 - Essential (primary) hypertension (7) Nicotine dependence Current Visit: Yes Status: Chronic Qualifiers: Nicotine product type: cigarettes Substance use status: uncomplicated Qualified Code(s): F17.210 - Nicotine dependence, cigarettes, uncomplicated (8) Depression (emotion) Current Visit: Yes Status: Suspected Qualifiers: Depression Type: dysthymia Qualified Code(s): F34.1 - Dysthymic disorder Cleared for Admission [facility] - Detox or Rehab [facility] Level of Care: Medically Managed Detox Regimen/Protocol: Librium S Breath Alcohol Content Breath Alcohol Content: 0.074 Urine Pregancy Test - Result Urine Test Results: Negative- NO Line Present Urine Drug Screen - Results Drug Screen Negative: No Urine Drug Screen Results: BZO-Benzodiazepines Inpatient Rehab Admission - Rehab Decision to Admit Inpatient rehab admission?: No
[2018-07-16] MEDS ORDERED: hydrOXYzine PAMOATE 50 MG CAPSULE (FP) PO PRN (13:59)
[2018-07-16] MEDS ORDERED: guaiFENesin/D-METHORPHAN HB 10 ML UNIT-DOSE CUPS PO PRN (13:59)
[2018-07-16] MEDS ORDERED: MENTHOL/PHENOL 1 EACH UD MM PRN (13:59)
[2018-07-16] MEDS ORDERED: NICOTINE POLACRILEX 4 MG GUM BUC PRN (13:59)
[2018-07-16] MEDS ORDERED: MAGNESIUM HYDROX 2400MG/30ML ORAL SUSPENSION 30 ML CUP PO PRN (13:59)
[2018-07-16] MEDS ORDERED: MAGNESIUM CITRATE 300 ML BOTTLE PO PRN (13:59)
[2018-07-16] MEDS ORDERED: chlordiazePOXIDE HCL 25 MG CAPSULE PO PRN (13:59)
[2018-07-16] MEDS ORDERED: chlordiazePOXIDE HCL 25 MG CAPSULE PO ONE (13:59)
[2018-07-16] MEDS ORDERED: LOPERAMIDE HCL 2 MG CAPSULE PO PRN (13:59)
[2018-07-16] MEDS ORDERED: MAG HYDROX/AL HYDROX/SIMETH 30 ML UNIT-DOSE CUP PO PRN (13:59)
[2018-07-16] MEDS ORDERED: P-EPHED 60MG/TRIPROLIDI 2.5MG TABLET PO PRN (13:59)
[2018-07-16] MEDS ORDERED: IBUPROFEN 400 MG TABLET (FP) PO PRN (13:59)
[2018-07-16] MEDS ORDERED: ACETAMINOPHEN 325 MG TABLET (FP) PO PRN (13:59)
[2018-07-16] MEDS ORDERED: ALBUTEROL SO4 8 GM HFA INHALER IH PRN (14:00)
[2018-07-16] MEDS: chlordiazePOXIDE HCL 25 MG CAPSULE PO SCH ×2 (17:25→22:03)
[2018-07-16] MEDS: THIAMINE HCL 100 MG TABLET (FP) PO SCH (22:03)
[2018-07-16] MEDS: MELATONIN 5 MG TABLETS PO PRN (22:03)
[2018-07-17] MEDS: chlordiazePOXIDE HCL 25 MG CAPSULE PO SCH ×4 (05:47→22:25)
[2018-07-17] MEDS ORDERED: PRENATAL VITAMINS W/ FOLIC ACID TABLET (FP) PO SCH (10:00)
[2018-07-17] MEDS ORDERED: NICOTINE 21 MG/24 HOURS TOPICAL PATCH TD SCH (10:00)
[2018-07-17] MEDS ORDERED: LISINOPRIL 10 MG TABLET (FP) PO SCH (10:00)
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
[2018-07-17] MEDS: LABETALOL HCL 200 MG TABLET (FP) PO SCH (10:30)
[2018-07-17] MEDS: amLODIPine BESYLATE 5 MG TABLET (FP) PO SCH (10:30)
[2018-07-17] MEDS: PANTOPRAZOLE 40 MG TABLET (FP) PO SCH (10:30)
[2018-07-17 11:19] LABS: HEMATOCRIT 38.5 % (35.4-49); HEMOGLOBIN 12.2 GM/dL (11.7-16.9); MCH 24.6 pg (25.7-33.7); MCHC 31.8 g/dl (32.0-35.9); MEAN CELL VOLUME 77.3 fl (80-96); MEAN PLT VOLUME 8.8 fl (7.5-11.1); PLATELET COUNT 349 K/MM3 (134-434); RBC 4.98 M/mm3 (4.00-5.60); RDW 21.5 % (11.9-15.9); WHITE BLOOD COUNT 6.1 K/mm3 (4.0-10.0)
[2018-07-17] MEDS ORDERED: FLU VACCINE QUAD 60 MCG/0.5 ML (MDV 18-19) IM ONE (12:00)
[2018-07-17 12:12] LABS: ALBUMIN 3.7 g/dl (3.4-5.0); ALK PHOS 63 U/L (45-117); ANION GAP 9 MMOL/L (8-16); BILIRUBIN,TOTAL 0.4 mg/dL (0.2-1); BLOOD UREA NITROGEN 9 mg/dL (7-18); CALCIUM 8.9 mg/dL (8.5-10.1); CHLORIDE 109 mmol/L (98-107); CO2 25 mmol/L (21-32); CREATININE 0.9 mg/dL (0.55-1.3); GLUCOSE,RANDOM 97 mg/dL (74-106); SGOT/AST 24 U/L (15-37); SGPT/ALT 26 U/L (13-61); SODIUM 143 mmol/L (136-145); TOT PROT 7.6 g/dl (6.4-8.2)
--- NOTE | 2018-07-17 17:22 | PN ---
S CIWA - CIWA Score Nausea/Vomitin-No Nausea/No Vomiting Muscle Tremors: 4-Moderate,w/Arms Extend Anxiety: 4-Mod. Anxious/Guarded Agitation: 2 Paroxysmal Sweats: No Perspiration Orientation: 0-Oriented Tacttile Disturbances: 2-Mild Itch/Numbness/Burn Auditory Disturbances: 2-Mild Harshness/Frighten Visual Disturbances: 0-None Headache: 0-None Present CIWA-Ar Total Score: 14 BHS Progress Note (SOAP) Subjective: Anxious, Tremors. Objective: PATIENT A & O X 3, OBSERVED AMBULATING ON UNIT. IN NO ACUTE DISTRESS. 07/17/18 17:21 Vital Signs Temperature 99.1 F 07/17/18 13:37 Pulse Rate 85 07/17/18 13:37 Respiratory Rate 18 07/17/18 13:37 Blood Pressure 123/80 07/17/18 13:37 O2 Sat by Pulse Oximetry (%) Laboratory Tests 07/17/18 07/17/18 07/17/18 06:00 06:00 06:00 WBC 6.1 RBC 4.98 Hgb 12.2 Hct 38.5 MCV 77.3 L MCH 24.6 L MCHC 31.8 L RDW 21.5 H Plt Count 349 D MPV 8.8 Sodium 143 Potassium 4.0 Chloride 109 H Carbon Dioxide 25 Anion Gap 9 BUN 9 Creatinine 0.9 Creat Clearance w eGFR > 60 Random Glucose 97 Calcium 8.9 Total Bilirubin 0.4 AST 24 ALT 26 Alkaline Phosphatase 63 Total Protein 7.6 Albumin 3.7 RPR Titer HIV 1&2 Antibody Screen Negative HIV P24 Antigen Negative 07/17/18 06:00 WBC RBC Hgb Hct MCV MCH MCHC RDW Plt Count MPV Sodium Potassium Chloride Carbon Dioxide Anion Gap BUN Creatinine Creat Clearance w eGFR Random Glucose Calcium Total Bilirubin AST ALT Alkaline Phosphatase Total Protein Albumin RPR Titer Nonreactive HIV 1&2 Antibody Screen HIV P24 Antigen LABS NOTED. Assessment: 07/17/18 17:21 WITHDRAWAL SYMPTOMS. Plan: CONTINUE DETOX.
[2018-07-17] MEDS: THIAMINE HCL 100 MG TABLET (FP) PO SCH (22:25)
[2018-07-17] MEDS: MELATONIN 5 MG TABLETS PO PRN (22:26)
[2018-07-18] MEDS: chlordiazePOXIDE HCL 25 MG CAPSULE PO SCH (05:32)
[2018-07-18] MEDS: PANTOPRAZOLE 40 MG TABLET (FP) PO SCH (09:03)
[2018-07-18] MEDS: LABETALOL HCL 200 MG TABLET (FP) PO SCH (09:03)
[2018-07-18] MEDS: amLODIPine BESYLATE 5 MG TABLET (FP) PO SCH (09:03)
[2018-07-18 09:30] VITALS: BP 119/80; PULSE 82; TEMP 96.4
--- NOTE | 2018-07-18 10:03 | PN ---
S CIWA - CIWA Score Nausea/Vomitin-No Nausea/No Vomiting Muscle Tremors: 3 Anxiety: 4-Mod. Anxious/Guarded Agitation: 1-Slight > Activity Paroxysmal Sweats: No Perspiration Orientation: 0-Oriented Tacttile Disturbances: 1-Very Mild Itch/Numbness Auditory Disturbances: 0-None Visual Disturbances: 1-Very Mild Sensitivity Headache: 0-None Present CIWA-Ar Total Score: 10 BHS Progress Note (SOAP) Subjective: Anxious, Tremors. Objective: PATIENT A & O X 3, OBSERVED AMBULATING ON UNIT. IN NO ACUTE DISTRESS. 07/18/18 10:02 Vital Signs Temperature 96.4 F L 07/18/18 09:30 Pulse Rate 82 07/18/18 09:30 Respiratory Rate 18 07/18/18 09:30 Blood Pressure 119/80 07/18/18 09:30 O2 Sat by Pulse Oximetry (%) Laboratory Tests 07/17/18 07/17/18 07/17/18 06:00 06:00 06:00 WBC 6.1 RBC 4.98 Hgb 12.2 Hct 38.5 MCV 77.3 L MCH 24.6 L MCHC 31.8 L RDW 21.5 H Plt Count 349 D MPV 8.8 Sodium 143 Potassium 4.0 Chloride 109 H Carbon Dioxide 25 Anion Gap 9 BUN 9 Creatinine 0.9 Creat Clearance w eGFR > 60 Random Glucose 97 Calcium 8.9 Total Bilirubin 0.4 AST 24 ALT 26 Alkaline Phosphatase 63 Total Protein 7.6 Albumin 3.7 RPR Titer HIV 1&2 Antibody Screen Negative HIV P24 Antigen Negative 07/17/18 06:00 WBC RBC Hgb Hct MCV MCH MCHC RDW Plt Count MPV Sodium Potassium Chloride Carbon Dioxide Anion Gap BUN Creatinine Creat Clearance w eGFR Random Glucose Calcium Total Bilirubin AST ALT Alkaline Phosphatase Total Protein Albumin RPR Titer Nonreactive HIV 1&2 Antibody Screen HIV P24 Antigen LABS NOTED. Assessment: 07/18/18 10:02 WITHDRAWAL SYMPTOMS. Plan: CONTINUE DETOX.
--- NOTE | 2018-07-18 10:10 | DS ---
[facility] Detox Discharge Summary Admission Date: 07/16/18 Discharge Date: 07/18/18 - History Present History: Alcohol Dependence Additional Comments: PATIENT REPORTS THAT HE HAS A PERSONAL ISSUE TO ATTEND TO AND DOES NOT WISH TO REMAIN TO COMPLETE DETOX REGIMEN. RISKS OF LEAVING DETOX UNIT AGAINST MEDICAL ADVICE AND PRIOR TO COMPLETION OF DETOX REGIMEN EXPLAINED TO PATIENT. PATIENT ADVISED TO GO IMMEDIATELY TO NEAREST ER SHOULD ANY INTOLERABLE DETOX SYMPTOMS DEVELOP AT ANY TIME. PATIENT VERBALIZED UNDERSTANDING OF ALL INFORMATION / RECOMMENDATIONS PRESENTED TO HIM PRIOR TO DEPARTURE FROM DETOX UNIT. PRESCRIPTIONS FOR DISCHARGE MEDICATIONS SENT TO PATIENT'S PHARMACY ([email or web address], [place], [place]) FOR PATIENT TO COVER HIM UNTIL HE IS ABLE TO ATTEND APPOINTMENT WITH HIS [employer] (PATIENT REPORTS THAT HE HAS AN APPOINTMENT TO SEE HIS [employer] FOR MEDICAL ASSESSMENT THIS UPCOMING WEEK) PATIENT LEFT DETOX UNIT IN STABLE MEDICAL CONDITION. Pertinent Past History: G.E.R.D., History of Depression, Anxiety, Insomnia, HTN, C.O.P.D., Borderline DM , Dry Skin Dermatitis, History of P.T.S.D. - Physical Exam Results Vital Signs: Vital Signs Temperature 96.4 F L 07/18/18 09:30 Pulse Rate 82 07/18/18 09:30 Respiratory Rate 18 07/18/18 09:30 Blood Pressure 119/80 07/18/18 09:30 O2 Sat by Pulse Oximetry (%) Pertinent Admission Physical Exam Findings: WITHDRAWAL SYMPTOMS. Laboratory Tests 07/17/18 07/17/18 07/17/18 06:00 06:00 06:00 WBC 6.1 RBC 4.98 Hgb 12.2 Hct 38.5 MCV 77.3 L MCH 24.6 L MCHC 31.8 L RDW 21.5 H Plt Count 349 D MPV 8.8 Sodium 143 Potassium 4.0 Chloride 109 H Carbon Dioxide 25 Anion Gap 9 BUN 9 Creatinine 0.9 Creat Clearance w eGFR > 60 Random Glucose 97 Calcium 8.9 Total Bilirubin 0.4 AST 24 ALT 26 Alkaline Phosphatase 63 Total Protein 7.6 Albumin 3.7 RPR Titer HIV 1&2 Antibody Screen Negative HIV P24 Antigen Negative 07/17/18 06:00 WBC RBC Hgb Hct MCV MCH MCHC RDW Plt Count MPV Sodium Potassium Chloride Carbon Dioxide Anion Gap BUN Creatinine Creat Clearance w eGFR Random Glucose Calcium Total Bilirubin AST ALT Alkaline Phosphatase Total Protein Albumin RPR Titer Nonreactive HIV 1&2 Antibody Screen HIV P24 Antigen LABS NOTED. - Treatment Hospital Course: Detoxed Safely - Medication Discharge Medications: Ambulatory Orders Omeprazole 40 mg PO DAILY #30 cap 10/08/17 traZODone HCL [Desyrel -] 100 mg PO HS #30 tablet 10/09/17 Quetiapine Fumarate [Seroquel -] 100 mg PO HS 07/16/18 Albuterol Sulfate Inhaler - [Ventolin HFA Inhaler -] 2 inh IH Q4H PRN #1 inhaler 07/18/18 Amlodipine Besylate [Norvasc -] 5 mg PO DAILY #14 tablet 07/18/18 Labetalol HCl [Normodyne -] 200 mg PO DAILY #14 tablet 07/18/18 Lisinopril 10 mg PO DAILY #14 tablet 07/18/18 - Diagnosis (1) Alcohol dependence with uncomplicated withdrawal Current Visit: Yes Status: Acute (2) COPD (chronic obstructive pulmonary disease) Current Visit: Yes Status: Chronic Qualifiers: COPD type: emphysema Emphysema type: unspecified Qualified Code(s): J43.9 - Emphysema, unspecified (3) Dry skin dermatitis Current Visit: Yes Status: Chronic (4) GERD (gastroesophageal reflux disease) Current Visit: Yes Status: Chronic Qualifiers: Esophagitis presence: without esophagitis Qualified Code(s): K21.9 - Gastro -esophageal reflux disease without esophagitis (5) HTN (hypertension) Current Visit: Yes Status: Chronic Qualifiers: Hypertension type: essential hypertension Qualified Code(s): I10 - Essential (primary) hypertension (6) Insomnia Current Visit: Yes Status: Chronic Qualifiers: Insomnia type: alcohol-induced Qualified Code(s): F10.982 - Alcohol use, unspecified with alcohol-induced sleep disorder (7) Nicotine dependence Current Visit: Yes Status: Chronic Qualifiers: Nicotine product type: cigarettes Substance use status: uncomplicated Qualified Code(s): F17.210 - Nicotine dependence, cigarettes, uncomplicated (8) PTSD (post-traumatic stress disorder) Current Visit: Yes Status: Chronic (9) Substance induced mood disorder Current Visit: Yes Status: Chronic (10) Depression (emotion) Current Visit: Yes Status: Suspected Qualifiers: Depression Type: dysthymia Qualified Code(s): F34.1 - Dysthymic disorder - AMA Did Patient Leave Against Medical Advice: Yes (PT HAD PERSONAL ISSUE AND DID NOT WISH TO REMAIN TO COMPLETE DETOX REGIMEN.)
[2018-07-18] MEDS ORDERED: chlordiazePOXIDE 5 MG CAPSULE PO SCH (17:00)
[2018-07-19] MEDS ORDERED: chlordiazePOXIDE HCL 10 MG CAPSULE PO SCH (17:00)
== END 2018-07-18 09:10 | disposition left against medical advice (07) | DRG 770 ==
LOC: YASAS 11:10 → Y3N 14:54
PROVIDERS: ADMIT Surgery; ATTEND Surgery
PROC: HZ2ZZZZ Detoxification Services for Substance Abuse Treatment (ICD-10-PCS; principal; 2018-07-16)
DX: F10.230 Alcohol dependence with withdrawal, uncomplicated (principal); F10.282 Alcohol dependence with alcohol-induced sleep disorder; F17.210 Nicotine dependence, cigarettes, uncomplicated; F43.10 Post-traumatic stress disorder, unspecified; F19.24 Other psychoactive substance dependence with psychoactive substance-induced mood disorder; F34.1 Dysthymic disorder; I10 Essential (primary) hypertension; J43.9 Emphysema, unspecified; L85.3 Xerosis cutis; K21.9 Gastro-esophageal reflux disease without esophagitis; R73.03 Prediabetes; G47.30 Sleep apnea, unspecified; R00.0 Tachycardia, unspecified; E66.9 Obesity, unspecified; Z68.35 Body mass index [BMI] 35.0-35.9, adult
CPT/HCPCS: 36415; 80053; 85027; 86593; 87389

== ENCOUNTER 2019-03-28 14:58 | Inpatient (IN) | payer OTHER ==
[2019-03-28 15:52] VITALS: BMI 36.4
--- NOTE | 2019-03-28 18:07 | HP ---
CIWA Score Nausea/Vomitin Muscle Tremors: 2 Anxiety: 3 Agitation: 3 Paroxysmal Sweats: No Perspiration Orientation: 0-Oriented Tacttile Disturbances: 1-Very Mild Itch/Numbness Auditory Disturbances: 0-None Visual Disturbances: 0-None Headache: 2-Mild CIWA-Ar Total Score: 13 - Admission Criteria OASAS Guidelines: Admission for Medically Managed Detox: Requires at least one of the followin. CIWA greater than 12 2. Seizures within the past 24 hours 3. Delirium tremens within the past 24 hours 4. Hallucinations within the past 24 hours 5. Acute intervention needed for co occurring medical disorder 6. Acute intervention needed for co occurring psychiatric disorder 7. Severe withdrawal that cannot be handled at a lower level of care (continued vomiting, continued diarrhea, abnormal vital signs) requiring intravenous medication and/or fluids 8. Admitting History and Physical - Smoking History Smoking history: Current every day smoker Have you smoked in the past 12 months: Yes Aproximately how many cigarettes per day: 20 - Alcohol/Substance Use Hx Alcohol Use: Yes Admission ROS BHS - HPI Chief Complaint: i need help to stop drinking alcohol Allergies/Adverse Reactions: Allergies Allergy/AdvReac Type Severity Reaction Status Date / Time No Known Allergies Allergy Verified 03/28/19 15:46 History of Present Illness: this 43 ears old male with alcohol dependence,seeking detox,withdrawal symptom, denied seizure denied syncope multiple admissions in detox but keep relapsing history of non compliance hypertension non compliance gerd nicotine dependence 1 pack/day no significant period of sobriety plan for longterm rehab copd Exam Limitations: No Limitations - Ebola screening Have you traveled outside of the country in the last 21 days: No (N) Have you had contact with anyone from an Ebola affected area: No Do you have a fever: No - Review of Systems Constitutional: Loss of Appetite, Malaise, Night Sweats, Changes in sleep, Weakness EENT: reports: Tearing, Nose Congestion Respiratory: reports: No Symptoms reported, Other (copd) GI: reports: Nausea, Poor Appetite, Abdominal cramping : reports: No Symptoms Reported Musculoskeletal: reports: Back Pain, Muscle Pain Integumentary: reports: Dryness Neuro: reports: Headache, Tremors Endocrine: reports: No Symptoms Reported Hematology: reports: No Symptoms Reported Psychiatric: reports: No Sypmtoms Reported, Judgement Intact, Mood/Affect Appropiate, Anxious, Depressed, other (insomnia) Other Systems: Reviewed and Negative Patient History - Patient Medical History Hx Anemia: No Hx Asthma: No Hx Chronic Obstructive Pulmonary Disease (COPD): Yes Hx Cancer: No Hx Cardiac Disorders: No Hx Congestive Heart Failure: No Hx Hypertension: Yes (non compliance) Hx Hypercholesterolemia: No Hx Pacemaker: No HX Cerebrovascular Accident: No Hx Seizures: No Hx Dementia: No Hx Diabetes: No Hx Gastrointestinal Disorders: Yes (acid reflux) Hx Liver Disease: No Hx Genitourinary Disorders: No Hx Sexually Transmitted Disorders: No Hx Renal Disease (ESRD): No Hx Thyroid Disease: No Hx Human Immunodeficiency Virus (HIV): No Hx Hepatitis C: No Hx Depression: Yes Hx Suicide Attempt: No Hx Bipolar Disorder: No Hx Schizophrenia: No Other Medical History: anxiety,insomnia, - Patient Surgical History Past Surgical History: No Hx Neurologic Surgery: No Hx Cataract Extraction: No Hx Cardiac Surgery: No Hx Lung Surgery: No Hx Breast Surgery: No Hx Breast Biopsy: No Hx Abdominal Surgery: No Hx Appendectomy: No Hx Cholecystectomy: No Hx Genitourinary Surgery: No Hx Section: No Hx Orthopedic Surgery: No Anesthesia Reaction: No - PPD History Previous Implant?: Yes Implanted On Prior [facility] Admission?: Yes Date: 07/18/18 Results: 0 mm PPD to be Administered?: No - Smoking Cessation Smoking history: Current every day smoker Have you smoked in the past 12 months: Yes Aproximately how many cigarettes per day: 20 Cigars Per Day: 0 Hx Chewing Tobacco Use: No Initiated information on smoking cessation: Yes 'Breaking Loose' booklet given: 03/28/19 - Substance & Tx. History Hx Alcohol Use: Yes Hx Substance Use: No Substance Use Type: Alcohol Hx Substance Use Treatment: Yes (07/16/18 to 07/18/18) - Substances abused Alcohol Substance route: Oral Frequency: Daily Amount used: 3 40oz beer/1/2 pint of tesha Age of first use: 9 Date of last use: 03/28/19 Admission Physical Exam BHS - Vital Signs Vital Signs: Vital Signs - 24 hr 03/28/19 15:49 Temperature 98.6 F Pulse Rate 95 H Respiratory 20 Rate Blood Pressure 155/90 - Physical General Appearance: Yes: Moderate Distress, Tremorous, Irritable, Sweating, Anxious HEENTM: Yes: Normal ENT Inspection, SAL, Pharynx Normal Respiratory: Yes: Lungs Clear, Normal Breath Sounds, No Respiratory Distress Neck: Yes: Within Normal Limits, Supple, Trachea in good position Breast: Yes: Within Normal Limits Cardiology: Yes: Within Normal Limits, Regular Rhythm, Regular Rate, S1, S2 Abdominal: Yes: Within Normal Limits, Normal Bowel Sounds, Non Tender, Flat, Soft Genitourinary: Yes: Within Normal Limits Back: Yes: Muscle Spasm Musculoskeletal: Yes: Back pain, Muscle Pain Extremities: Yes: Normal Range of Motion, Tremors Neurological: Yes: vp foundation II-XII NML intact, Fully Oriented, Alert, Motor Strength 5/5 Integumentary: Yes: Dry Lymphatic: Yes: Within Normal Limits - Diagnostic (1) Alcohol dependence with uncomplicated withdrawal Status: Chronic (2) COPD (chronic obstructive pulmonary disease) Status: Chronic Qualifiers: COPD type: emphysema Emphysema type: unspecified Qualified Code(s): J43.9 - Emphysema, unspecified (3) GERD (gastroesophageal reflux disease) Status: Chronic Qualifiers: Esophagitis presence: without esophagitis Qualified Code(s): K21.9 - Gastro -esophageal reflux disease without esophagitis (4) HTN (hypertension) Status: Chronic Qualifiers: Hypertension type: essential hypertension Qualified Code(s): I10 - Essential (primary) hypertension (5) Insomnia Status: Chronic Qualifiers: Insomnia type: alcohol-induced Qualified Code(s): F10.982 - Alcohol use, unspecified with alcohol-induced sleep disorder (6) Nicotine dependence Status: Chronic Qualifiers: Nicotine product type: cigarettes Substance use status: uncomplicated Qualified Code(s): F17.210 - Nicotine dependence, cigarettes, uncomplicated (7) Anxiety and depression Status: Acute Cleared for Admission [facility] - Detox or Rehab [facility] Level of Care: Medically Managed Detox Regimen/Protocol: Librium Breathalyzer - Breathalyzer Breathalyzer: 0.070 Urine Drug Screen - Test Device Lot number: [id number] Expiration date: 10/30/20 - Control Is test valid?: Yes - Results Drug screen NEGATIVE: Yes Inpatient Rehab Admission - Rehab Decision to Admit Inpatient rehab admission?: No
[2019-03-28] MEDS ORDERED: MELATONIN 5 MG TABLETS PO PRN (18:18)
[2019-03-28] MEDS ORDERED: IBUPROFEN 400 MG TABLET (FP) PO PRN (18:18)
[2019-03-28] MEDS ORDERED: ACETAMINOPHEN 325 MG TABLET (FP) PO PRN ×2 (18:18)
[2019-03-28] MEDS ORDERED: hydrOXYzine PAMOATE 25 MG CAPSULE (FP) PO PRN (18:18)
[2019-03-28] MEDS ORDERED: MAGNESIUM CITRATE 300 ML BOTTLE PO PRN (18:18)
[2019-03-28] MEDS ORDERED: MENTHOL/PHENOL 1 EACH UD MM PRN (18:18)
[2019-03-28] MEDS ORDERED: chlordiazePOXIDE HCL 25 MG CAPSULE PO PRN (18:18)
[2019-03-28] MEDS ORDERED: BISMUTH SUBSALICYLATE 524 MG/30 ML UD PO PRN (18:18)
[2019-03-28] MEDS ORDERED: MAG HYDROX/AL HYDROX/SIMETH 30 ML UNIT-DOSE CUP PO PRN (18:18)
[2019-03-28] MEDS ORDERED: METHOCARBAMOL 500 MG TABLET PO PRN (18:18)
[2019-03-28] MEDS ORDERED: MAGNESIUM HYDROX 2400MG/30ML ORAL SUSPENSION 30 ML CUP PO PRN (18:18)
[2019-03-28] MEDS ORDERED: ALBUTEROL SO4 8 GM HFA INHALER IH PRN (18:20)
[2019-03-28] MEDS: amLODIPine BESYLATE 5 MG TABLET (FP) PO SCH (18:57)
[2019-03-28] MEDS: NICOTINE 21 MG/24 HOURS TOPICAL PATCH TD SCH (18:57)
[2019-03-28] MEDS: LISINOPRIL 10 MG TABLET (FP) PO SCH (18:57)
[2019-03-28] MEDS ORDERED: THIAMINE HCL 100 MG TABLET (FP) PO SCH (22:00)
[2019-03-28] MEDS: chlordiazePOXIDE HCL 25 MG CAPSULE PO SCH (22:39)
[2019-03-29] MEDS: chlordiazePOXIDE HCL 25 MG CAPSULE PO SCH ×3 (05:24→18:17)
--- NOTE | 2019-03-29 09:45 | PN ---
S CIWA - CIWA Score Nausea/Vomitin-Mild Nausea/No Vomiting Muscle Tremors: 3 Anxiety: 3 Agitation: 3 Paroxysmal Sweats: 1-Minimal Palms Moist Orientation: 1-Uncertain about Date Tacttile Disturbances: 1-Very Mild Itch/Numbness Auditory Disturbances: 1-Very Mild Visual Disturbances: 0-None Headache: 1-Very Mild CIWA-Ar Total Score: 15 BHS Progress Note (SOAP) Subjective: 43 years old male admitted on 03/28/19 for alcohol withdrawal sx management treated with librium detox regimen report librium helps him sleep better last night ate breakfast ambulating on hallway Objective: 03/29/19 09:44 Vital Signs Temperature 97.8 F 03/29/19 09:21 Pulse Rate 87 03/29/19 09:21 Respiratory Rate 18 03/29/19 09:21 Blood Pressure 128/86 03/29/19 09:21 O2 Sat by Pulse Oximetry (%) 03/29/19 09:45 lab pending Assessment: 03/29/19 09:45 alcohol withdrawal ws Plan: continue librium detox regimen
[2019-03-29 09:58] LABS: HEMATOCRIT 39.4 % (35.4-49); HEMOGLOBIN 12.5 GM/dL (11.7-16.9); MCH 24.5 pg (25.7-33.7); MCHC 31.8 g/dl (32.0-35.9); MEAN CELL VOLUME 77.1 fl (80-96); MEAN PLT VOLUME 9.8 fl (7.5-11.1); PLATELET COUNT 200 K/MM3 (134-434); RBC 5.11 M/mm3 (4.00-5.60); RDW 17.6 % (11.9-15.9); WHITE BLOOD COUNT 5.2 K/mm3 (4.0-10.0)
[2019-03-29] MEDS ORDERED: PRENATAL VITAMINS W/ FOLIC ACID TABLET (FP) PO SCH (10:00)
[2019-03-29 10:06] LABS: ALBUMIN 3.4 g/dl (3.4-5.0); BILIRUBIN,TOTAL 0.3 mg/dL (0.2-1); BLOOD UREA NITROGEN 14.4 mg/dL (7-18); CALCIUM 8.8 mg/dL (8.5-10.1); CREATININE 1.1 mg/dL (0.55-1.3); POTASSIUM 3.7 mmol/L (3.5-5.1); TOT PROT 6.3 g/dl (6.4-8.2)
[2019-03-29] MEDS: amLODIPine BESYLATE 5 MG TABLET (FP) PO SCH (10:30)
[2019-03-29] MEDS: NICOTINE 21 MG/24 HOURS TOPICAL PATCH TD SCH (10:30)
[2019-03-29] MEDS: LISINOPRIL 10 MG TABLET (FP) PO SCH (10:30)
[2019-03-29 13:33] VITALS: PULSE 80
--- NOTE | 2019-03-29 16:35 | DS ---
[facility] Detox Discharge Summary Admission Date: 03/28/19 Discharge Date: 03/29/19 - History Present History: Alcohol Dependence Additional Comments: Pt. is alert and oriented x 3. He is stating he cannot complete treatment due to personal reasons. No signs of distress noted or reported. Pt. stated he plans to enroll at [facility] for outpatient treatment. Medication refill sent to the pharmacy. Pt. encouraged to seek immediate medical attention if he experiences withdrawal symptoms and follow-up with PCP; client verbalized understanding. Last Vital Signs Temp Pulse Resp BP Pulse Ox 97.0 F L 80 18 105/66 03/29/19 13:32 03/29/19 13:32 03/29/19 13:32 03/29/19 13:32 - Physical Exam Results Vital Signs: Vital Signs Temperature 97.0 F L 03/29/19 13:32 Pulse Rate 80 03/29/19 13:32 Respiratory Rate 18 03/29/19 13:32 Blood Pressure 105/66 03/29/19 13:32 O2 Sat by Pulse Oximetry (%) Pertinent Admission Physical Exam Findings: Laboratory Last Values WBC 5.2 K/mm3 (4.0-10.0) 03/29/19 08:20 RBC 5.11 M/mm3 (4.00-5.60) 03/29/19 08:20 Hgb 12.5 GM/dL (11.7-16.9) 03/29/19 08:20 Hct 39.4 % (35.4-49) 03/29/19 08:20 MCV 77.1 fl (80-96) L 03/29/19 08:20 MCH 24.5 pg (25.7-33.7) L 03/29/19 08:20 MCHC 31.8 g/dl (32.0-35.9) L 03/29/19 08:20 RDW 17.6 % (11.9-15.9) H 03/29/19 08:20 Plt Count 200 K/MM3 (134-434) D 03/29/19 08:20 MPV 9.8 fl (7.5-11.1) D 03/29/19 08:20 Sodium 141 mmol/L (136-145) 03/29/19 08:20 Potassium 3.7 mmol/L (3.5-5.1) 03/29/19 08:20 Chloride 106 mmol/L (98-107) 03/29/19 08:20 Carbon Dioxide 30 mmol/L (21-32) 03/29/19 08:20 Anion Gap 5 MMOL/L (8-16) L 03/29/19 08:20 BUN 14.4 mg/dL (7-18) 03/29/19 08:20 Creatinine 1.1 mg/dL (0.55-1.3) 03/29/19 08:20 Est GFR (CKD-EPI)AfAm 94.79 03/29/19 08:20 Est GFR (CKD-EPI)NonAf 81.78 03/29/19 08:20 Random Glucose 89 mg/dL (74-106) 03/29/19 08:20 Calcium 8.8 mg/dL (8.5-10.1) 03/29/19 08:20 Total Bilirubin 0.3 mg/dL (0.2-1) 03/29/19 08:20 AST 18 U/L (15-37) 03/29/19 08:20 ALT 23 U/L (13-61) 03/29/19 08:20 Alkaline Phosphatase 48 U/L (45-117) 03/29/19 08:20 Total Protein 6.3 g/dl (6.4-8.2) L 03/29/19 08:20 Albumin 3.4 g/dl (3.4-5.0) 03/29/19 08:20 RPR Titer Nonreactive (NONREACTIVE) 03/29/19 08:20 Labs noted - Medication Discharge Medications: Ambulatory Orders traZODone HCL [Desyrel -] 100 mg PO HS #30 tablet 10/09/17 Quetiapine Fumarate [Seroquel -] 100 mg PO HS 07/16/18 Amlodipine Besylate [Norvasc -] 5 mg PO DAILY #14 tablet 07/18/18 Labetalol HCl [Normodyne -] 200 mg PO DAILY #14 tablet 07/18/18 Lisinopril 10 mg PO DAILY #14 tablet 07/18/18 Albuterol Sulfate Inhaler - [Ventolin HFA Inhaler -] 2 inh IH PRN PRN 03/28/19 Omeprazole 40 mg PO DAILY #30 cap 03/29/19 - Diagnosis (1) Alcohol dependence with uncomplicated withdrawal Current Visit: Yes Status: Chronic (2) COPD (chronic obstructive pulmonary disease) Current Visit: Yes Status: Chronic Qualifiers: COPD type: emphysema Emphysema type: unspecified Qualified Code(s): J43.9 - Emphysema, unspecified (3) GERD (gastroesophageal reflux disease) Current Visit: Yes Status: Chronic Qualifiers: Esophagitis presence: without esophagitis Qualified Code(s): K21.9 - Gastro -esophageal reflux disease without esophagitis (4) HTN (hypertension) Current Visit: Yes Status: Chronic Qualifiers: Hypertension type: essential hypertension Qualified Code(s): I10 - Essential (primary) hypertension (5) Nicotine dependence Current Visit: Yes Status: Chronic Qualifiers: Nicotine product type: cigarettes Substance use status: uncomplicated Qualified Code(s): F17.210 - Nicotine dependence, cigarettes, uncomplicated - AMA Did Patient Leave Against Medical Advice: Yes
[2019-03-29 17:28] VITALS: BP 133/92; TEMP 97.1
[2019-03-30] MEDS ORDERED: chlordiazePOXIDE HCL 25 MG CAPSULE PO SCH (05:00)
[2019-03-31] MEDS ORDERED: chlordiazePOXIDE HCL 10 MG CAPSULE PO PRN
[2019-03-31] MEDS ORDERED: chlordiazePOXIDE HCL 10 MG CAPSULE PO SCH (05:00)
[2019-04-01] MEDS ORDERED: chlordiazePOXIDE HCL 10 MG CAPSULE PO SCH (05:00)
[2019-04-02] MEDS ORDERED: chlordiazePOXIDE HCL 10 MG CAPSULE PO ONE (05:00)
== END 2019-03-29 17:10 | disposition left against medical advice (07) | DRG 770 ==
LOC: YASAS 14:58 → Y3N 18:18
PROVIDERS: ADMIT Allergy & Immunology; ATTEND Allergy & Immunology
PROC: HZ2ZZZZ Detoxification Services for Substance Abuse Treatment (ICD-10-PCS; principal; 2019-03-28)
DX: F10.230 Alcohol dependence with withdrawal, uncomplicated (principal); F10.282 Alcohol dependence with alcohol-induced sleep disorder; F17.210 Nicotine dependence, cigarettes, uncomplicated; F41.9 Anxiety disorder, unspecified; F32.9 Major depressive disorder, single episode, unspecified; I10 Essential (primary) hypertension; J43.9 Emphysema, unspecified; K21.9 Gastro-esophageal reflux disease without esophagitis; Z91.14 Patient's other noncompliance with medication regimen
CPT/HCPCS: 36415; 80053; 85027; 86593